=== PATIENT | female | born 1950 | race Caucasian/White ===

== ENCOUNTER → 2017-10-09 12:01 | Outpatient (CLI) | payer MEDICARE, OTHER, SELFPAY ==
--- NOTE | 2017-10-09 12:07 | HPBI_ITS ---
MAMMOGRAPHY - BILATERAL SCREENING REASON FOR EXAM: Female, 67 years old. Routine annual screening examination. PERTINENT HISTORY: Non-contributory. TECHNIQUE: Digital bilateral breast rodri (3D mammographic acquisition) in the CC and MLO projections. 2-D mediolateral oblique (MLO) and craniocaudad (CC) views of both breasts were obtained. CAD: Full Field Digital Mammography with Computer Added Detection was performed. COMPARISON: Comparison is made with prior study dated October 04, 2016 and June 25, 2015. FINDINGS: Breast Composition: The breasts are almost entirely fatty. There are no dominant masses or suspicious calcifications. Stable 7 mm well-defined nodular density in the upper outer aspect of the left breast suggestive of a small intramammary lymph node. No other significant abnormalities are identified. There has been no significant change since the prior study. HPBI/SCREENING MAMM (CAD), BILAT IMPRESSION: Stable bilateral screening mammogram. Yearly follow-up mammogram recommended. (A) ASSESSMENT CATEGORY: BIRADS Category 2: Benign. A letter regarding these results will be sent to the patient by the facility within 30 days. Approximately 10% of breast cancers are not detected by mammography. A normal mammogram should not delay biopsy of a clinically suspicious abnormality. [id number] Electronically Signed: Hoang Hill MD at 8:14 EDT Tel [phone], Service support ,
== END ==
PROVIDERS: Family Provider Family Medicine; PCP Family Medicine; Visit Provider Family Medicine
DX: Z12.31 Encounter for screening mammogram for malignant neoplasm of breast (principal)
CPT/HCPCS: 77063; 77067

== ENCOUNTER → 2017-12-17 08:14 | Outpatient (CLI) | payer MEDICARE, OTHER, SELFPAY ==
[2017-12-17 10:53] LABS: Vitamin D,25 Hydroxy 33.4 ng/mL (29.95-100.01)
[2017-12-17 11:00] LABS: ALB/GLOB Ratio 1.1 RATIO (0.9-2.4); AST(SGOT) 13 U/L (15-37); Alanine Aminotransfer ALT/SGPT 21 U/L (13-56); Albumin, Serum 3.5 g/dL (3.2-5.0); Alkaline Phosphatase 94 U/L (45-117); Anion Gap 8 (5-15); BUN 12 mg/dL (7-18); BUN/Creat Ratio 14.6 RATIO (10-20); Calcium,Total 8.7 mg/dL (8.5-10.1); Chloride 105 mmol/L (98-107); Cholesterol 201 mg/dL (200); Creatinine, Serum 0.82 mg/dL (0.55-1.02); EST Glomerular Filtration Rate 74 mL/min (>60); Est Glom Filt Rate - Afr Amer 89 mL/min (>60); Globulin 3.3 g/dL (2.2-4.2); Glucose 101 mg/dL (74-106); High Density Lipoprotein 50 mg/dL; Potassium 3.9 mmol/L (3.5-5.1); Protein, Total 6.8 g/dL (6.4-8.2); Sodium Level 140 mmol/L (136-145); Triglycerides 70 mg/dL; Very Low Density Lipoprotein 14 mg/dL (5-40)
== END ==
PROVIDERS: Family Provider Family Medicine; PCP Family Medicine; Visit Provider Family Medicine
DX: I10 Essential (primary) hypertension (principal); E55.9 Vitamin D deficiency, unspecified
CPT/HCPCS: 36415; 80053; 80061; 82306

== ENCOUNTER → 2018-04-16 09:33 | Outpatient (CLI) | payer MEDICARE, OTHER, SELFPAY ==
--- NOTE | 2018-04-16 09:36 | RAD_ITS ---
STUDY: X-RAY - PARANASAL SINUSES REASON FOR EXAM: Female, 67 years old. Sinusitis. TECHNIQUE: 3 view(s) of the paranasal sinuses were obtained. COMPARISON: None. FINDINGS: Opacification of the left maxillary sinus and left frontal sinus. Normal visualized facial bones. The soft tissue structures are unremarkable. RAD/Sinuses min 3 Views IMPRESSION: Opacification of the left frontal and left maxillary sinuses. Electronically Signed: Hoang Hill MD at 15:10 EDT Tel [phone], Service support ,
== END ==
PROVIDERS: Family Provider Family Medicine; PCP Family Medicine; Visit Provider Family Medicine
DX: J32.9 Chronic sinusitis, unspecified (principal)
CPT/HCPCS: 70220

== ENCOUNTER → 2018-05-17 10:01 | Outpatient (CLI) | payer MEDICARE, OTHER, SELFPAY ==
--- NOTE | 2018-05-17 10:06 | RAD_ITS ---
STUDY: X-RAY - PARANASAL SINUSES REASON FOR EXAM: Female, 67 years old. Sinusitis. TECHNIQUE: 3 view(s) of the paranasal sinuses were obtained. # of Images: 3 COMPARISON: None. FINDINGS: Normal visualized frontal, right maxillary, ethmoidal and sphenoid sinuses. There is mildly increased density in the left maxillary sinus. Normal visualized facial bones. The soft tissue structures are unremarkable. RAD/Sinuses min 3 Views IMPRESSION: Question left maxillary sinusitis. Electronically Signed: Cody Martinez DO at 20:06 EDT Tel [phone], Service support ,
== END ==
PROVIDERS: Family Provider Family Medicine; PCP Family Medicine; Referring Provider Family Medicine; Visit Provider Family Medicine
DX: J32.9 Chronic sinusitis, unspecified (principal)
CPT/HCPCS: 70220

== ENCOUNTER → 2018-09-26 07:49 | Outpatient (CLI) | payer MEDICARE, OTHER, SELFPAY ==
[2018-09-26 10:23] LABS: ALB/GLOB Ratio 1.1 RATIO (0.9-2.4); AST(SGOT) 10 U/L (15-37); Alanine Aminotransfer ALT/SGPT 17 U/L (13-56); Albumin, Serum 3.4 g/dL (3.2-5.0); Alkaline Phosphatase 95 U/L (45-117); Anion Gap 7 (5-15); BUN 10 mg/dL (7-18); BUN/Creat Ratio 11.7 RATIO (10-20); Calcium,Total 8.5 mg/dL (8.5-10.1); Chloride 106 mmol/L (98-107); Cholesterol 214 mg/dL (200); Creatinine, Serum 0.86 mg/dL (0.55-1.02); EST Glomerular Filtration Rate 70 mL/min (>60); Est Glom Filt Rate - Afr Amer 85 mL/min (>60); Globulin 3.2 g/dL (2.2-4.2); Glucose 100 mg/dL (74-106); High Density Lipoprotein 46 mg/dL; Potassium 3.6 mmol/L (3.5-5.1); Protein, Total 6.6 g/dL (6.4-8.2); Sodium Level 142 mmol/L (136-145); Triglycerides 85 mg/dL; Very Low Density Lipoprotein 17 mg/dL (5-40)
[2018-09-26 11:22] LABS: Vitamin D,25 Hydroxy 15.9 ng/mL (29.95-100.01)
== END ==
PROVIDERS: Family Provider Family Medicine; PCP Family Medicine; Referring Provider Family Medicine; Visit Provider Family Medicine
DX: E55.9 Vitamin D deficiency, unspecified (principal); I10 Essential (primary) hypertension
CPT/HCPCS: 36415; 80053; 80061; 82306

== ENCOUNTER 2018-10-15 12:30 | Outpatient (RCR) | payer MEDICARE, OTHER, SELFPAY ==
--- NOTE | 2018-09-02 12:30 | HP.PTEVAL_ITS ---
Patient's Visit Information DUSTIN CHANG is a 68 year old F referred to Physical Therapy by Jaciel Lowry MD with a diagnosis of RIGHT PIRIFORMIS SYNDROM AND HX OF LUMBAR DDD.. Date of Evaluation: 09/02/18 Physical Therapist: Maria Eugenia Zuñiga, PT, Cert MDT - Visit Plan Frequency: 2-3x /Week Duration: 4-6 Weeks Plan: AQUATIC THERAPY FOR PAIN RELEIF, POSTURE CORRECTION/STRENGTHENING, INSTRUCTION IN APPROPRIATE BODY MECHANICS AND ACTIVITY MODIFICATIONS. DLS STARTING WITH A NEUTRAL SPINE PROGRESSING ROM TOLERATED. KAJAL LE ROM, STRETCHING AND STRENGTHENING. HEP INSTRUCTION. ESPECIALLY MONITOR RIGHT KNEE PAIN, SWELLING, ROM AND STRENGTH. - Subjective Findings: Work/Leisure: RETIRED. Disability: YES - SINCE 2007 FOR LOW BACK. Present symptoms: RIGHT LOW BACK, RIGHT HIP, RIGHT THIGH AND RIGHT KNEE PAIN AND RIGHT LEG PAIIN. PATIENT DENIES RIGHT BUTTOCK PAIN. PATIENT DENIES FOOT SX'S. HAS NUMBNESS AND TINGLING IN RIGHT THIGH AND LEG TOO. Present since: JUL 30 2018. Pain Scale: WORSE 10/10, LEAST 2/10. Currently: 10/06. Commenced as a result of: NO APPARENT REASON. Symptoms at onset: RIGHT LOW BACK. Worse: WALKING, STANDING, TRUNING OVER IN BED, DRIVING, COOKING, DOING DISHES, CLEANI NG. Better: SITTING, LYIND DOWN IN RIGHT SDLY. Disturbed sleep: YES. Previous history/Previous treatment: LUMBAR FUSION - DR. MARIE 2006. NO RECENT MARY ELLEN'S, NO RECENT PT, NO CHIROPRACTOR. Coughing/sneezing/straining: NEGATIVE. Gait: PATIENT REPORTS HER RIGHT KNEE GOT REALLY WEAK AND GAVE OUT A FEW TIMES SO SHE HAD TO START USING HER WALKER AND CANE AGAIN SINCE JUL 30 2018. USE TO JUST HAVE TO USE CANE FOR LONG DISTANCES. Difficulty initiating urinatin: NO. Accidents: NO. Unexplained weight loss: NO. Imaging: NONE RECENT. PMH: HTN, ASTHMA, RIGHT TKR 2002. PLOF (Prior Level of Function): ABLE TO WALK WITHOUT AD MOST OF THE TIME. 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 SCIATICA PREVENTING HER FROM BEING ABLE TO DRIVE INITIALLY. - Objective Sitting/Standing Posture: POOR. RIGHT HIP SLIGHTLY HIGHER THAN LEFT. Lordosis: REDUCED. Lateral shift: NO. Relevant shift: N/A. Active Correction of posture: BETTER. BETTER WITH PASSIVE SUPPORT TOO. Other Observations: INDEP GAIT INTO PT WITH A STRAIGHT CANE, INCREASED TRUNK FLEX, LIMP ON RIGHT LE AND DECREASED CADANCE. Motor deficit: LLE 5/5 WITH MMT'ING EXCEPT HIP 4-/5. RIGHT LE: HIP 3+/5, KNEE EXT 4/5, KNEE FLEX 4-/5, ANKLE 5/5. Sensory deficit: KAJAL LE LIGHT TOUCH SENSATION APPEARS INTACT AND SYMMETRICAL. ROM deficit: TIGHT KAJAL HIP FLEXORS, KNEE FLEX AND GASTROC SOLEUS COMPLEX'S. RIGHT KNEE FLEX 116, LEFT 127. Reflexes: NT. Dural Signs: NEGATIVE KAJAL LE DURAL TESTS. Lumbar mvmt loss: flex - MIN - INCRASES TINGLING RIGHT LE. ext - LEON - FEELS SHYAM GOOD. R SG - LEON. L SG - MOD. Core strength: POOR. Palpation: TENDERNESS WITH PALPATION OF THE ENTIRE LUMBAR REGION INTO RIGHT HIP AND LATERAL THIGH AND RIGHT KNEE MEDIAL AND LATERALLY. THERE IS A VERY SMALL MEDIAL AREA OF SWELLING IN THE RIGHT KNEE. - Goals Goal 1:: DECREASE C/O LOW BACK AND RIGHT LE SX'S. Goal Time Frame: 4-6 Weeks Goal 2:: IMPROVE STANDING, WALKING, BENDING, LIFTING, ADL AND HOMEMAKING FUNCITON. Goal Time Frame: 4-6 Weeks Goal 3:: INSTRUCT IN PROPHYLAXIS Goal Time Frame: 4-6 Weeks - Rehabilitation Potential Rehabilitation Potential: Fair - Anticipated Interventions Patient/Client Instruction: Educate patient on: Condition, Plan of Care, Risk Factors, Benefits of Fitness Program For the Purpose of:: To improve self management Therapeutic Exercise to Include: Strength training, Body mechanics, Postural training, Gait and locomotor training, In an aquatic setting, Active ROM, Dynamic Lumbar Stabilization For the Purpose of:: To decrease pain, To increase ROM, To improve muscle performance and motor function, To increase tolerance to activity/condition/position, To improve ability of physical actions for home/community/work/leisure, To improve gait and locomotor functions Thank you for the opportunity to evaluate your patient. For Medicare and Medicare HMO plans, please review the plan of care and approve it. It will need to be FAXED BACK to us at [phone] for Medicare purposes. For Medicare only, by signing this I certify the plan of care. Please let me know if there are questions or concerns regarding this plan of care. Physician Signature: Date:
--- NOTE | 2018-09-27 11:29 | HP.PTREVAL_ITS ---
Jaciel Lowry MD, It has been my pleasure to treat DUSTIN CHANG over the last 8 visits for RIGHT PIRIFORMIS SYNDROM AND HX OF LUMBAR DDD.. Please see the progress note below for an update on the physical therapy plan of care! Subjective: PATIENT REPORTS HER RIGHT LEG IS NOT ACHING AND THROBBING ANYMORE. IT DOESN'T HAVE ANY SHOOTING PAINS AND IT DOESN'T FEEL WEAK. KNEE ISN'T GIVING OUT LIKE BEFORE. 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 SHE REPORTS THAT SOME DAYS THE WATER EX HELPS HER BACK TOO. SOME OF THE EX'S HAVE MADE HER BACK SORE THOUGH. SHE REPORTS FEELING CHALLENGED BY THE CURRENT INTENSITY EXCEPT THE LUNGES WERE TOO MUCH. Objective/Function: INDEP GAIT NOW WITHOUT AD OR GROSS DEVIATION NOTED EXCEPT DECREASED CADANCE AND MILD INCREASED TRUNK FLEXION. Motor deficit: LLE 5/5 WITH MMT'ING EXCEPT HIP 4/5. RIGHT LE: HIP 4-/5, KNEE EXT 5/5, KNEE FLEX 5/5, ANKLE 5/5. Sensory deficit: KAJAL LE LIGHT TOUCH SENSATION APPEARS INTACT AND SYMMETRICAL. ROM deficit: TIGHT KAJAL HIP FLEXORS, KNEE FLEX AND GASTROC SOLEUS COMPLEX'S. RIGHT KNEE FLEX 125, LEFT 127. Reflexes: NT. Dural Signs: NEGATIVE KAJAL LE DURAL TESTS. Lumbar mvmt loss: flex - NIL. ext - MOD. R SG - LEON. L SG - MOD. Core strength: POOR. Palpation: MILD TENDERNESS WITH PALPATION OF RIGHT LUMBAR REGION AND RIGHT LATERAL HIP REGION. NO KNEE EDEMA NOTED NOW. Plan Plan: CONTINUE AQUATIC THERAPY X 10 MORE VISITS DECREASING TO 2 TIMES A WEEK (WITH PATIENT STARTING ONE TIME A WEEK INDEP) FOR PAIN RELEIF, POSTURE CORRECTION/STRENGTHENING, INSTRUCTION IN APPROPRIATE BODY MECHANICS AND ACTIVITY MODIFICATIONS. DLS STARTING WITH A NEUTRAL SPINE PROGRESSING ROM TOLERATED. KAJAL LE ROM, STRETCHING AND STRENGTHENING. HEP INSTRUCTION. Goals Goal 1:: DECREASE C/O LOW BACK AND RIGHT LE SX'S. Goal Time Frame: 4-6 Weeks Goal Progress: Progressing Goal 2:: IMPROVE STANDING, WALKING, BENDING, LIFTING, ADL AND HOMEMAKING FUNCITON. Goal Time Frame: 4-6 Weeks Goal Progress: Progressing Goal 3:: INSTRUCT IN PROPHYLAXIS Goal Time Frame: 4-6 Weeks Goal Progress: Progressing Anticipated Interventions Patient/Client Instruction: Educate patient on: Condition, Plan of Care, Risk Factors, Benefits of Fitness Program For the Purpose of:: To improve self management Therapeutic Exercise to Include: Strength training, Body mechanics, Postural training, Gait and locomotor training, In an aquatic setting, Active ROM, Dynamic Lumbar Stabilization For the Purpose of:: To decrease pain, To increase ROM, To improve muscle performance and motor function, To increase tolerance to activity/condition/position, To improve ability of physical actions for home/c ommunity/work/leisure, To improve gait and locomotor functions Please do not hesitate to contact me at [phone] by phone or if you have questions or concerns regarding this new plan of care! Sincerely, Maria Eugenia Zuñiga, PT, Cert MDT
--- NOTE | 2018-10-15 12:51 | HP.PTDCSUM_ITS ---
HP - PT D/C Summary It has been my pleasure to treat DUSTIN CHANG under orders from Jaciel Lowry MD, for the diagnosis of RIGHT PIRIFORMIS SYNDROM AND HX OF LUMBAR DDD. for a total of 11 visit(s). Discharge Date: 10/15/18 Please see the following information for a summary of their discharge status. - Subjective Subjective: PATIENT REPORTS HER LEG IS ALL BETTER AND THAT IS WHY SHE CAME HERE. STATES SHE HAS MORE MOLLY'TS SCHEDULED BUT WANTS TO TALK WITH ME ABOUT CANCELLING THEM. PATIENT REPORTS SHE STILL HAS BACK PAIN AND LIMITATIONS BUT THAT IS NOT WHY SHE IS HERE - I HAVE HAD BACK PAIN FOR A LONG TIME. STATES SHE HAS A HOME EX PROGRAM BUT SHE DOESN'T DO THEM MUCH SHE SHOULD. PLANS TO DO THEM MORE AT HOME WHEN SHE STOPS PT. STATES SHE LOVES THE WATER AND IS GOING TO START BACK INDEP'LY IN THE POOL 2 DAYS A WEEK NEXT WEEK. STATES SHE HASN'T HAD ANY LEG PAIN FOR A WHILE NOW AND THERAPY MIGHT HAVE EVEN HELPED HER BACK A LITTLE. - Pain RIGHT LEG/KNEE Pain Intensity (Out of 10): 0 LOWER BACK Pain Intensity (Out of 10): 2 - Overall Improvement % Improvement: 100 - Objective Objective/Function: ALL GOALS MET AND PATIENT IS INDEP WITH A POOL PROGRAM SHE PLANS TO CONTINUE HERE AT [facility]. INDEP GAIT WITHOUT AD OR GROSS DEVIATION NOTED EXCEPT DECREASED CADANCE AND MILD INCREASED TRUNK FLEXION. Motor deficit: LLE 5/5 WITH MMT'ING EXCEPT HIP 4/5. RIGHT LE: HIP 4-/5, KNEE EXT 5/5, KNEE FLEX 5/5, ANKLE 5/5. Sensory deficit: KAJAL LE LIGHT TOUCH SENSATION APPEARS INTACT AND SYMMETRICAL. ROM deficit: TIGHT KAJAL HIP FLEXORS, KNEE FLEX AND GASTROC SOLEUS COMPLEX'S. RIGHT KNEE FLEX 128, LEFT 134. Dural Signs: NEGATIVE KAJAL LE DURAL TESTS. Lumbar mvmt loss: flex - NIL. ext - MOD. R SG - LEON. L SG - MOD. Core strength: POOR - Goals Goal 1:: DECREASE C/O LOW BACK AND RIGHT LE SX'S. Goal Progress: Goal Met Goal 2:: IMPROVE STANDING, WALKING, BENDING, LIFTING, ADL AND HOMEMAKING FUNCITON. Goal Progress: Goal Met Goal 3:: INSTRUCT IN PROPHYLAXIS Goal Progress: Goal Met - Plan Plan: D/C. PATIENT AGREEABLE. - D/C Information If there are questions or concerns regarding this patient's physical therapy, please feel free to call me at [phone]. Thank you for the referral of this patient. Sincerely, Maria Eugenia Zuñiga PT, Cert MDT
== END 2018-10-15 19:00 | disposition home or self-care (01) ==
LOC: PT 12:30
PROVIDERS: Family Provider Family Medicine; PCP Family Medicine; Referring Provider Family Medicine; Visit Provider Family Medicine
DX: G57.01 Lesion of sciatic nerve, right lower limb (principal); Z87.39 Personal history of other diseases of the musculoskeletal system and connective tissue
CPT/HCPCS: 97113; 97162; 97530

== ENCOUNTER → 2018-12-24 11:52 | Outpatient (CLI) | payer MEDICARE, OTHER, SELFPAY ==
--- NOTE | 2018-12-24 11:55 | BI_ITS ---
MAMMOGRAPHY - BILATERAL SCREENING REASON FOR EXAM: Female, 68 years old. Routine annual screening examination. PERTINENT HISTORY: Non-contributory. TECHNIQUE: Digital bilateral breast rodri (3D mammographic acquisition) in the CC and MLO projections. 2-D mediolateral oblique (MLO) and craniocaudad (CC) views of both breasts were obtained. CAD: Full Field Digital Mammography with Computer Added Detection was performed. COMPARISON: Comparison is made with prior examination dated October 09, 2017 and October 04, 2016. FINDINGS: Breast Composition: The breasts are almost entirely fatty. There are no dominant masses or suspicious calcifications. Stable 7 mm well-defined nodular density in the upper outer aspect of the left breast. This has the appearance of a small intramammary lymph node. No other significant abnormalities are identified. There has been no significant change since the prior study. BI/SCREENING MAMM (CAD), BILAT IMPRESSION: Stable bilateral screening mammogram. Yearly follow-up mammogram recommended. (A) ASSESSMENT CATEGORY: BIRADS Category 2: Benign. A letter regarding these results will be sent to the patient by the facility within 30 days. Approximately 10% of breast cancers are not detected by mammography. A normal mammogram should not delay biopsy of a clinically suspicious abnormality. [id number] Electronically Signed: Hoang Hill, at 8:15 EDT , Service support ,
--- NOTE | 2018-12-24 12:10 | BD_ITS ---
STUDY: DUAL ENERGY X-RAY ABSORPTIOMETRY / DXA REASON FOR EXAM: Female, 68 years old. The patient is postmenopausal. Loss of height. TECHNIQUE: Bone Mineral Density (BMD) measurements of lumbar spine and bilateral hips were obtained. COMPARISON: Comparison is made with prior examination of October 04, 2016. FINDINGS: Lumbar Spine (L1-L4): g/cm2 (1.096) / T-score (-0.6) / Z-score (1.0) Findings are suggestive of normal bone density with a low fracture risk. Left Femur Total: g/cm2 (0.976) / T-score (-0.3) / Z-score (1.1) Left Femoral Neck: g/cm2 (0.907) / T-score (-0.9) / Z-score (0.6) Right Femur Total: g/cm2 (1.000) / T-score (-0.1) / Z-score (1.3) Right Femoral Neck: g/cm2 (0.892) / T-score (-1.1) / Z-score (0.5) The T-Scores on the most recent prior examination were: Lumbar Spine (L1-L4): There has been improvement of bone density since the previous examination. Left Femur Total: which represents a worsening of 6.8%. Right Femur Total: which represents a worsening of 2.2%. BD/Dexa Bone Density Study IMPRESSION: The patient is considered osteopenic as outlined below according to World Abad Organization (WHO) criteria with a low fracture risk. There has been worsening of bone density since the previous examination. Reference Information: The T-score is the number of standard deviations above or below the standard which is normal for young adults at their peak bone mineral density. The World Health Organization (WHO) interprets the T-scores as follows: Above -1 Normal bone density Between -1 and -2.5 Osteopenia Equal to / or below -2.5 Osteoporosis As a practical clinical guideline, osteopenia may be graded as follows: Mild -1 through -1.5 Moderate -1.6 through -2.0 Severe -2.1 through -2.4 The Z-score is the number of standard deviations above or below age-matched controls. A Z-score of less than -1.5 would be considered abnormal. References: 1. NIH Osteoporosis and Related Bone Diseases http://www.osteo.org 2. International Society for Clinical Densitometry http://www.iscd.org 3. National Osteoporosis Foundation http://www.nof.org Electronically Signed: Hoang Hill, at 12:39 EDT , Service support ,
== END ==
PROVIDERS: Family Provider Family Medicine; PCP Family Medicine; Referring Provider Family Medicine; Visit Provider Family Medicine
DX: Z12.31 Encounter for screening mammogram for malignant neoplasm of breast (principal); Z78.0 Asymptomatic menopausal state
CPT/HCPCS: 77063; 77067; 77080

== ENCOUNTER → 2019-01-29 09:00 | Outpatient (CLI) | payer MEDICARE, OTHER, SELFPAY | PROVIDERS: Family Provider Family Medicine; PCP Family Medicine; Referring Provider Family Medicine; Visit Provider Family Medicine | DX: E55.9 Vitamin D deficiency, unspecified (principal) | CPT/HCPCS: 36415; 82306 ==

== ENCOUNTER → 2019-12-05 10:30 | Outpatient (CLI) | payer MEDICARE, OTHER, SELFPAY | PROVIDERS: PCP Family Medicine; Referring Provider Otolaryngology; Visit Provider Otolaryngology | DX: J32.9 Chronic sinusitis, unspecified (principal) | CPT/HCPCS: 87070; 87205 ==

== ENCOUNTER → 2019-12-26 11:41 | Outpatient (CLI) | payer MEDICARE, OTHER, SELFPAY ==
--- NOTE | 2019-12-26 11:58 | EKG12_ITS ---
Test Reason : PREOP Blood Pressure : / mmHG Vent. Rate : 073 BPM Atrial Rate : 073 BPM P-R Int : 130 ms QRS Dur : 082 ms QT Int : 396 ms P-R-T Axes : 052 041 046 degrees QTc Int : 436 ms Normal sinus rhythm Normal ECG Confirmed by DANDY RODRIGUEZ ([id number]), mapping editor KAREN SMALLWOOD ([id number]) on 12/29/2019 11:12:39 AM Referred By: RENETTA Confirmed By:DANDY RODRIGUEZ
[2019-12-26 12:28] LABS: Hematocrit 38.5 % (37-47); Hemoglobin 12.1 g/dL (12.0-15.0); Mean Corp Hgb Conc 31.4 g/dL (32-36); Mean Corpuscular Volume 95.3 fL (81-99); Mean Platelet Vol. 12.1 fl (6.2-12.0); Platelet Count 188 K/mm3 (150-450); RBC Distribution Width CV 13.2 % (11.6-14.6); RBC Distribution Width SD 46.2 fl (35.1-43.9); Red Blood Count 4.04 M/mm3 (4.2-5.4); White Blood Count 5.6 K/mm3 (4.4-11.0)
[2019-12-26 13:05] LABS: Anion Gap 6 (5-15); BUN 14 mg/dL (7-18); Calcium,Total 9.3 mg/dL (8.5-10.1); Chloride 103 mmol/L (98-107); Creatinine, Serum 0.93 mg/dL (0.55-1.02); EST Glomerular Filtration Rate 64 mL/min (>60); Est Glom Filt Rate - Afr Amer 77 mL/min (>60); Glucose 100 mg/dL (74-106); Potassium 3.7 mmol/L (3.5-5.1); Sodium Level 139 mmol/L (136-145)
== END ==
PROVIDERS: PCP Family Medicine; Visit Provider Otolaryngology
DX: Z01.810 Encounter for preprocedural cardiovascular examination (principal); Z01.812 Encounter for preprocedural laboratory examination
CPT/HCPCS: 36415; 80048; 85027; 93005

== ENCOUNTER → 2019-12-26 13:57 | Outpatient (CLI) | payer MEDICARE, OTHER, SELFPAY | PROVIDERS: PCP Family Medicine; Visit Provider Otolaryngology | DX: Z11.59 Encounter for screening for other viral diseases (principal); Z01.810 Encounter for preprocedural cardiovascular examination; Z01.818 Encounter for other preprocedural examination | CPT/HCPCS: 36415; 80048; 85027; 87635; 93005; G2023; U0003 ==

== ENCOUNTER → 2020-04-01 10:01 | Outpatient (CLI) | payer MEDICARE, OTHER, SELFPAY ==
[2020-04-01 12:42] LABS: Vitamin D,25 Hydroxy 45.1 ng/mL
[2020-04-01 12:48] LABS: ALB/GLOB Ratio 1.2 RATIO (0.9-2.4); AST(SGOT) 20 U/L (15-37); Alanine Aminotransfer ALT/SGPT 24 U/L (13-56); Albumin, Serum 3.7 g/dL (3.2-5.0); Alkaline Phosphatase 79 U/L (45-117); Anion Gap 5 (5-15); BUN 16 mg/dL (7-18); BUN/Creat Ratio 19.6 RATIO (10-20); Calcium,Total 8.8 mg/dL (8.5-10.1); Chloride 107 mmol/L (98-107); Cholesterol 214 mg/dL (200); Creatinine, Serum 0.82 mg/dL (0.55-1.02); EST Glomerular Filtration Rate 74 mL/min (>60); Est Glom Filt Rate - Afr Amer 89 mL/min (>60); Globulin 3.2 g/dL (2.2-4.2); Glucose 92 mg/dL (74-106); High Density Lipoprotein 58 mg/dL; Potassium 3.6 mmol/L (3.5-5.1); Protein, Total 6.9 g/dL (6.4-8.2); Sodium Level 141 mmol/L (136-145); Triglycerides 87 mg/dL; Very Low Density Lipoprotein 17 mg/dL (5-40)
== END ==
PROVIDERS: PCP Family Medicine; Referring Provider Family Medicine; Visit Provider Family Medicine
DX: E55.9 Vitamin D deficiency, unspecified (principal); E66.9 Obesity, unspecified; E78.5 Hyperlipidemia, unspecified
CPT/HCPCS: 36415; 80053; 80061; 82306; 84443

== ENCOUNTER → 2020-04-21 09:40 | Outpatient (CLI) | payer MEDICARE, OTHER, SELFPAY | PROVIDERS: PCP Family Medicine; Referring Provider Otolaryngology; Visit Provider Otolaryngology | DX: Z11.59 Encounter for screening for other viral diseases (principal) | CPT/HCPCS: 87635; C9803; U0003 ==

== ENCOUNTER → 2020-04-27 15:23 | Outpatient (CLI) | payer MEDICARE, OTHER, SELFPAY ==
--- NOTE | 2020-04-27 08:40 | ETH_PTH ---
PATIENT: DUSTIN CHANG LOC: [facility] U#:[id number] AGE/SX: 74/F ROOM: RE04/27/[address]: Dr. Romero Almendarez MD : 1950 BED: DIS: SPEC #: [id number] RECD: 04/27/20 15:01 STATUS: SHAHZAD FERNANDO #: [id number] RICKI: 04/27/20 08:[address]: Romero Almendarez DEPT: SURGICAL PATHOLOGY RECD BY: Frederic Pool ENTERED: 04/28/20 07:22 SP TYPE: ETH TISS OTHR DR: Dr. Romero Lowry MD [facility] Tissues: A - Ethmoid sinus, NOS B - Ethmoid sinus, NOS Procedures: Decalcification bone/plaque Surgery Specimen Level III HEADER OPERATION: Functional endoscopic sinus surgery PRE-OP DIAGNOSIS: Chronic sinusitis, polyp of nasal cavity TISSUE SUBMITTED: A - Right sinus contents, B - Left sinus contents MICROSCOPIC DIAGNOSIS A. Right sinus contents, curettings: Consistent with chronic sinusitis. Fragments of unremarkable bone. B. Left sinus contents, curettings: Consistent with chronic sinusitis. Fragments of unremarkable bone. AM:estefani 05/03/20 MICROSCOPIC DESCRIPTION Slides are reviewed. GROSS DESCRIPTION A - Received in fixative is one container labeled with the patient's name and designated right sinus contents. The specimen consists of multiple irregular fragments of gritty pink-lemon tissue that in aggregate measure 2 x 1 x 0.2 cm. The specimen is totally submitted in one cassette after decalcification. B - Received in fixative is one container labeled with the patient's name and designated left sinus contents. The specimen consists of multiple irregular fragments of gritty light lemon soft tissue that in aggregate measure 5 x 3 x 0.2 cm. The specimen is totally submitted in one cassette after decalcification. / AM:estefani 04/28/20 TC:3 CPT: 82198 x2, 31887 x2
== END ==
PROVIDERS: PCP Family Medicine; Referring Provider Otolaryngology; Visit Provider Otolaryngology
DX: J32.9 Chronic sinusitis, unspecified (principal); J33.0 Polyp of nasal cavity
CPT/HCPCS: 88304; 88305; 88311

== ENCOUNTER → 2021-03-16 08:09 | Outpatient (CLI) | payer MEDICARE, OTHER, SELFPAY ==
--- NOTE | 2021-03-16 08:12 | US_ITS ---
STUDY: SUPERFICIAL ULTRASOUND - RIGHT ANKLE. REASON FOR EXAM: Female, 70 years old. RIGHT ANKLE MASS- h/o prior ganglion cyst removal TECHNIQUE: A superficial ultrasound was performed with real-time and static germain-scale imaging. COMPARISON: None. FINDINGS: The palpable abnormality corresponds to a 1.1 cm x 1.1 cm x 0.6 cm heterogeneous soft tissue density along the inner aspect of the lateral malleolus. A complex ganglion cyst should be ruled out. US/Ext Non Vasc Limited/Soft Tiss IMPRESSION: The palpable amount to correspond to 1.1 cm x 1.1 cm x 0.6 cm heterogeneous soft tissue density. This may represent a complex ganglion cyst. Electronically Signed: Hoang Hill MD at 14:59 EDT , Service support ,
== END ==
PROVIDERS: PCP Family Medicine; Referring Provider Nurse Practitioner Family; Visit Provider Nurse Practitioner Family
DX: M67.40 Ganglion, unspecified site (principal)
CPT/HCPCS: 76882

== ENCOUNTER → 2021-04-14 09:02 | Outpatient (CLI) | payer MEDICARE, OTHER, SELFPAY ==
[2021-04-14 12:58] LABS: Vitamin D,25 Hydroxy 61.3 ng/mL
[2021-04-14 13:00] LABS: AST(SGOT) 15 U/L (15-37); Alanine Aminotransfer ALT/SGPT 29 U/L (13-56); Albumin, Serum 3.5 g/dL (3.2-5.0); Alkaline Phosphatase 65 U/L (45-117); Anion Gap 6 (5-15); BUN 14 mg/dL (7-18); Calcium,Total 9.1 mg/dL (8.5-10.1); Chloride 101 mmol/L (98-107); Cholesterol 188 mg/dL (200); Creatinine, Serum 0.78 mg/dL (0.55-1.02); EST Glomerular Filtration Rate 78 mL/min (>60); Est Glom Filt Rate - Afr Amer 95 mL/min (>60); Free T3 3.1 pg/mL (2.18-3.98); Globulin 3.5 g/dL (2.2-4.2); Glucose 99 mg/dL (74-106); High Density Lipoprotein 52 mg/dL; Potassium 3.1 mmol/L (3.5-5.1); Sodium Level 138 mmol/L (136-145); T4 Free Direct 0.86 ng/dL (0.76-1.46); Thyroid Stim Hormone (TSH) 1.86 uIU/mL (0.358-3.74); Triglycerides 167 mg/dL; Very Low Density Lipoprotein 33 mg/dL (5-40)
[2021-04-19 08:09] LABS: Epinephrine, Pl <15 pg/mL (0-62); Norepinephrine, Pl 484 pg/mL (0-874)
[2021-04-19 14:05] LABS: Dopamine, Pl <30 pg/mL (0-48)
== END ==
PROVIDERS: PCP Family Medicine; Referring Provider Internal Medicine Endocrinology, Diabetes & Metabolism; Visit Provider Internal Medicine Endocrinology, Diabetes & Metabolism
DX: E78.5 Hyperlipidemia, unspecified (principal); R23.2 Flushing; E55.9 Vitamin D deficiency, unspecified
CPT/HCPCS: 36415; 80053; 80061; 82306; 82384; 84439; 84443; 84481

== ENCOUNTER → 2021-05-25 07:53 | Outpatient (CLI) | payer MEDICARE, OTHER, SELFPAY ==
--- NOTE | 2021-05-25 07:56 | CT_ITS ---
STUDY: LOW DOSE CT LUNG CANCER SCREENING REASON FOR EXAM: Female, 70 years old. SMOKING HISTORY RADIATION DOSAGE (If Supplied By Facility): CTDIvol = ( 4.02 ) mGy, DLP = ( 134.91 ) mGycm TECHNIQUE: No contrast was administered. Low dose technique was utilized (average mAS-38 and kVp 120). 1.25 mm axial source images with a slice interval of 1.25-mm were reconstructed in lung windows. 2.5 mm axial source images with a slice interval of 2.5-mm were reconstructed in lung windows. 5.0 mm axial source images with a slice interval of 5.0-mm were reconstructed in soft tissue windows. Nodule measured using lung windows on PACS and/or independent workstation with automated measurement of minimum and maximum diameter. Nodule measurement reported as average diameter rounded to the nearest whole number. Growth is defined as an increase ins size of greater than 1.5 mm. COMPARISON: None. NODULES: Nodule #: 1 Density: Solid Lung location: Right lower lobe lobe: Abuts pleura Location in series: Series Number: 2 Image: 148 Size - D1 x D2 mm: 4.3 x 5.8 mm Margin: Smooth Shape: Round Calcification: None Fat: Not present Temporal comparison: N/A Total lung nodules (excluding granulomas): 1 Emphysema: Not present Endobronchial lesion: None Aorta: Minor atherosclerosis Coronary arteries: Moderate calcific atherosclerosis Heart: Normal size Pulmonary artery: Unremarkable for unopacified technique Mediastinal nodes: Calcified lymph nodes. No soft tissue adenopathy. Other chest and abdominal findings: Granuloma in the right middle lobe. Mild scarring of the lingula and right middle lobe. CT/Low Dose CT Lung Screening IMPRESSION: 1. Lung-RADS category 3 - Continue screening with LDCT in 6 months. 2. 4.3 x 5.8 mm right lower lobe nodule. IMPORTANT NOTES FOR USE: ACR Lung-RADS Version 1.1 Assessment Categories Release Date: 2018 Category: Coded 0-4 bases on nodule(s) with highest degree of suspicion. Negative screen is defined as categories 1 and 2; a positive screen is defined as categories 3 and 4. Category 3 and 4A nodules that are unchanged on interval CT should be coded as category 2, and individuals returned to screening in 12 months. Category 4X: Category 3 or 4 nodules with additional imaging findings that increase the suspicion of lung cancer, such as spiculation, GGN that doubles in size in 1 year, enlarged lymph notes, etc. Category Modifiers: S (significant finding unrelated to lung cancer) Electronically Signed: Nghia Zhang MD ([place]) at 9:04 EDT , Service support ,
== END ==
PROVIDERS: PCP Family Medicine; Referring Provider Family Medicine; Visit Provider Family Medicine
DX: Z12.2 Encounter for screening for malignant neoplasm of respiratory organs (principal); Z87.891 Personal history of nicotine dependence
CPT/HCPCS: 71271

== ENCOUNTER → 2021-06-22 09:55 | Outpatient (CLI) | payer MEDICARE, OTHER, SELFPAY ==
--- NOTE | 2021-06-22 09:58 | BI_ITS ---
MAMMOGRAPHY - BILATERAL SCREENING 3-D TOMOSYNTHESIS REASON FOR EXAM: Female, 70 years old. Routine screening PERTINENT HISTORY: No significant family history. TECHNIQUE: 2-D mammograms and 3-D Tomosynthesis of the breast (s) were performed. CAD was performed. COMPARISON: 12/24/2018 FINDINGS: The breast composition is almost entirely fat. Scattered benign calcifications are seen. No dense spiculated masses or suspicious microcalcifications are identified. No architectural distortion is identified. There is no skin thickening or retraction. Stable noncalcified subcentimeter nodule in the upper outer quadrant of the left breast. There has been no significant change since the prior study. BI/SCRN MAMM (CAD)W/NAS BILAT IMPRESSION: No mammographic signs of malignancy. Routine yearly mammograms recommended. ASSESSMENT CATEGORY: BIRADS Category 1: Negative. A letter regarding these results will be sent to the patient by the facility within 30 days. FOLLOW UP RECOMMENDATION: Yearly follow up mammogram recommended. (A) Approximately 10% of breast cancers are not detected by mammography. A normal mammogram should not delay biopsy of a clinically suspicious abnormality. Electronically Signed: Walter Preston MD at 13:08 EST , Service support ,
--- NOTE | 2021-06-22 10:01 | BD_ITS ---
STUDY: DUAL ENERGY X-RAY ABSORPTIOMETRY / DXA REASON FOR EXAM: Female, 70 years old. Z780. The patient is postmenopausal. TECHNIQUE: Bone Mineral Density (BMD) measurements of lumbar spine and bilateral hips were obtained. COMPARISON: Comparison is made with prior study dated 12/24/2018. FINDINGS: Lumbar Spine (L1-L4): g/cm2 (0.944) / T-score (-0.7) / Z-score (1.4) Findings are suggestive of normal bone density with a low fracture risk. Left Femur Total: g/cm2 (0.993) / T-score (0.4) / Z-score (1.9) Left Femoral Neck: g/cm2 (0.746) / T-score (-0.9) / Z-score (0.9) Right Femur Total: g/cm2 (1.010) / T-score (0.6) / Z-score (2.1) Right Femoral Neck: g/cm2 (0.847) / T-score (0.0) / Z-score (1.8) The T-Scores on the most recent prior examination were: Lumbar Spine (L1-L4): There has been worsening of bone density since the previous examination. Left Femur Total: which represents an improvement of 9%. Right Femur Total: which represents an improvement of 8.2%. BD/Dexa Bone Density Study IMPRESSION: The patient is considered normal as outlined below according to World Abad Organization (WHO) criteria with a low fracture risk. There has been improvement of bone density since the previous examination. Reference Information: The T-score is the number of standard deviations above or below the standard which is normal for young adults at their peak bone mineral density. The World Health Organization (WHO) interprets the T-scores as follows: Above -1 Normal bone density Between -1 and -2.5 Osteopenia Equal to / or below -2.5 Osteoporosis As a practical clinical guideline, osteopenia may be graded as follows: Mild -1 through -1.5 Moderate -1.6 through -2.0 Severe -2.1 through -2.4 The Z-score is the number of standard deviations above or below age-matched controls. A Z-score of less than -1.5 would be considered abnormal. References: 1. NIH Osteoporosis and Related Bone Diseases www osteo.org 2. International Society for Clinical Densitometry www iscd.org 3. National Osteoporosis Foundation www nof.org Electronically Signed: Hoang Hill MD at 13:07 EST , Service support ,
== END ==
PROVIDERS: PCP Family Medicine; Visit Provider Family Medicine
DX: Z12.31 Encounter for screening mammogram for malignant neoplasm of breast (principal); Z78.0 Asymptomatic menopausal state
CPT/HCPCS: 77063; 77067; 77080

== ENCOUNTER 2021-10-06 11:09 | Outpatient (CLI) | payer MEDICARE, OTHER, SELFPAY ==
[2021-10-06 15:30] LABS: Anion Gap 6 (5-15); BUN 17 mg/dL (7-18); BUN/Creat Ratio 20.4 RATIO (10-20); Calcium,Total 9.6 mg/dL (8.5-10.1); Chloride 102 mmol/L (98-107); Creatinine, Serum 0.83 mg/dL (0.55-1.02); EST Glomerular Filtration Rate 72 mL/min (>60); Est Glom Filt Rate - Afr Amer 87 mL/min (>60); Glucose 92 mg/dL (74-106); Potassium 3.2 mmol/L (3.5-5.1); Sodium Level 139 mmol/L (136-145)
[2021-10-06 15:39] LABS: Vitamin D,25 Hydroxy 56.4 ng/mL
== END 2021-10-06 23:59 | disposition home or self-care (01) ==
LOC: MTLAB 11:11
PROVIDERS: PCP Family Medicine; Referring Provider Family Medicine; Visit Provider Family Medicine
DX: M67.40 Ganglion, unspecified site (principal); I10 Essential (primary) hypertension; R23.2 Flushing; E78.5 Hyperlipidemia, unspecified; E55.9 Vitamin D deficiency, unspecified
CPT/HCPCS: 36415; 80048; 82306

== ENCOUNTER 2021-11-14 08:50 | Outpatient (CLI) | payer MEDICARE, OTHER, SELFPAY ==
[2021-11-14 10:17] LABS: Anion Gap 4 (5-15); BUN 14 mg/dL (7-18); BUN/Creat Ratio 14.9 RATIO (10-20); Calcium,Total 9.1 mg/dL (8.5-10.1); Chloride 106 mmol/L (98-107); Creatinine, Serum 0.94 mg/dL (0.55-1.02); EST Glomerular Filtration Rate 63 mL/min (>60); Est Glom Filt Rate - Afr Amer 76 mL/min (>60); Glucose 79 mg/dL (74-106); Potassium 3.5 mmol/L (3.5-5.1); Sodium Level 140 mmol/L (136-145)
== END 2021-11-14 23:59 | disposition home or self-care (01) ==
PROVIDERS: PCP Family Medicine; Referring Provider Family Medicine; Visit Provider Family Medicine
DX: I10 Essential (primary) hypertension (principal)
CPT/HCPCS: 36415; 80048

== ENCOUNTER 2022-05-15 14:01 | Emergency (ER) | payer MEDICARE, OTHER, SELFPAY ==
[2022-05-15 14:01] VITALS: BP 137/126; PULSE 91; RESP 16; TEMP 36.2; O2SAT 98; BMI 47.9
--- NOTE | 2022-05-15 14:04 | RAD_ITS ---
STUDY: X-RAY - LEFT HAND REASON FOR EXAM: Female, 71 years old. Injury to the third and fourth digits following a fall. TECHNIQUE: 3 view(s) of the hand. COMPARISON: None. FINDINGS: Normal radiocarpal articulation. Normal distal radioulnar joint. Normal visualized carpal bones. Normal carpal articulations There is degenerative arthrosis of the carpometacarpal articulation of the thumb with lateral subluxation of the first metacarpus. Normal second through fifth carpometacarpal joints. Normal metacarpi. Normal metacarpophalangeal joint of the thumb. Normal interphalangeal joint of the thumb. Normal proximal and distal phalanges of the thumb. Normal metacarpophalangeal joints of the second through fifth fingers. There is diffuse articular joint space narrowing of the proximal and distal interphalangeal joints of the second through fifth fingers, but without erosive changes or periarticular soft tissue swelling. Normal phalanges of the second through fifth fingers. Soft tissue swelling. RAD/Hand Min 3 Views IMPRESSION: Degenerative changes. No evidence of fracture or dislocation. Soft tissue swelling. Electronically Signed: Hoang Hill MD at 14:57 EDT ,
--- NOTE | 2022-05-15 15:20 | EDS_ITS ---
HPI HPI - Fall History of Present Illness Chief Complaint: Fall Informant: patient Narrative Narrative: Patient had a mechanical trip and fall earlier. She landed on outstretched hand. She has some soreness in her left hand. Most of it is in the left ring finger proximal interphalangeal joint. She is right-hand dominant. She also had the ring on that area and it has now been removed. No other injury. Squeezing it or moving the hand makes it a little bit worse ice makes it better. She is not on any significant anticoagulation. [facility] Medical History Arthritis Asthma Back problem Flushing High blood pressure High cholesterol Osteoarthritis Seasonal allergies Home Medications HEALTHY BRAIN AND FOCUS PO 04/14/21 [History Last Taken Unknown] albuterol sulfate 90 mcg/actuation aerosol inhaler gm inhalation 04/14/21 [History Last Taken Unknown] calcium citrate 200 mg (950 mg) tablet 200 mg PO BID 04/14/21 [History Last Taken Unknown] cholecalciferol (vitamin D3) 25 mcg (1,000 unit) capsule 25 mcg PO DAILY 04/14/21 [History Last Taken Unknown] fluticasone furoate 200 mcg-vilanterol 25 mcg/dose inhalation powder ea inhalation 04/14/21 [History Last Taken Unknown] fluticasone propionate 250 mcg/actuation blister powder for inhalation 1 inh inhalation QHS 04/14/21 [History Last Taken Unknown] hydrochlorothiazide 25 mg tablet ea PO 04/14/21 [History Last Taken Unknown] losartan 50 mg tablet tablet PO 04/14/21 [History Last Taken Unknown] meloxicam 15 mg tablet ea PO 04/14/21 [History Last Taken Unknown] multivitamin (Daily Multi-Vitamin tablet) 1 tab PO DAILY 04/14/21 [History Last Taken Unknown] prednisone 5 mg tablet ea PO 04/14/21 [History Last Taken Unknown] sertraline 50 mg tablet tablet PO 04/14/21 [History Last Taken Unknown] simvastatin 10 mg tablet tablet PO 04/14/21 [History Last Taken Unknown] Allergy/AdvReac Type Severity Reaction Status Date / Time No Known Allergies Allergy Verified 05/15/22 15:22 Family History Other CVA (cerebral vascular accident) Cancer Myocardial infarction Surgical History H/O total hysterectomy Previous back surgery Total knee replacement status Social History Smoking Status: Former smoker alcohol intake: current alcohol intake frequency: 0-2 drinks per day substance use type: does not use what type of physical activity do you participate in: none ROS ROS ED Cardiovascular Cardiovascular: Denies chest pain, palpitations or racing heartbeat Gastrointestinal Gastrointestinal: Denies nausea or vomiting Musculoskeletal Musculoskeletal: Reports arthralgias; Denies back pain or neck pain Integumentary Denies Abrasions or rash Hematologic/Lymphatic Hematologic/Lymphatic: Denies easy bleeding or easy bruising EXAM Physical Exam Const Vital Signs: 05/15/22 14:01 05/15/22 15:19 Temperature 97.1 F L Temperature Source Temporal Pulse Rate 91 Respiratory Rate 16 Respiratory Effort Normal Non-Labored Respiratory Depth Normal Respiratory Pattern Normal Blood Pressure 137/126 H Blood Pressure Mean 129 Pulse Ox 98 Oxygen Delivery Method Room Air Room Air Positive well nourished and well developed General Appearance ED: well developed and NAD HEENT Reports normocephalic atraumatic Resp normal respiratory effort Back/Spine Back/Spine Narrative: Normal gait and balance Extremity Extremity Narrative: She does have some ecchymosis and a little swelling around that left ring finger proximally. Some of this is left over from the ring that was just removed. Some is contusions from the injury. But there is no deformity. There is no laxity of the joint when stressed. Both profundus and superficialis flexor tendons as well as extensors intact. Capillary refill is intact. Neuro moves all extremities, no focal motor deficits and no sensory deficits noted Sensorium / Orientation: alert Skin Skin Narrative: Contusions but no break in the skin MDM MDM MDM Narrative Medical decision making narrative: X-ray showed no acute process. We discussed options of splint or no splint. She is right-hand dominant. She would prefer not to put a splint on that finger. I think this may be better long-term topical avoid stiffness. She will use ice and [id number] medication. We discussed reasons to follow-up. If it is still hurting in a week or so it may need a repeat x-ray. Radiography Diagnostic Testing: Clinical Impression(s) from Imaging Studies Hand X-Ray 05/15/22 14:04 IMPRESSION: Degenerative changes. No evidence of fracture or dislocation. Soft tissue swelling. Electronically Signed: Hoang Hill MD at 14:57 EDT , Three-view x-ray of the hand looked at by me and radiology shows no sign of acute fracture. There is soft tissue swelling. Discharge Plan Triage Chief Complaint: Fall ED Provider: Juan Antonio Montero Dx/Rx/DC Orders Clinical Impression: Fall from slip, trip, or stumble, Contusion of left ring finger Instructions: ED Finger Contusion Prescriptions: No Action sertraline 50 mg tablet PO prednisone 5 mg tablet PO Label Comments: TAKE 1 TABLET EVERY OTHER DAY with or after a meal meloxicam 15 mg tablet PO Label Comments: TAKE 1 TABLET BY MOUTH DAILY simvastatin 10 mg tablet PO losartan 50 mg tablet PO hydrochlorothiazide 25 mg tablet PO Label Comments: TAKE 1 TABLET DAILY Breo Ellipta 200-25 mcg/dose blister with device inhalation Label Comments: INHALE one puff DAILY. rinse mouth after each use Flovent Diskus 250 mcg/actuation blister with device 1 inh inhalation QHS albuterol sulfate 90 mcg/actuation HFA aerosol inhaler inhalation cholecalciferol (vitamin D3) 25 mcg (1,000 unit) capsule 25 mcg PO DAILY multivitamin [Daily Multi-Vitamin] Tablet 1 tab PO DAILY calcium citrate 200 mg (950 mg) tablet 200 mg PO BID HEALTHY BRAIN AND FOCUS PO Primary Care Provider: Jaciel Lowry Referrals: Jaciel Lowry MD [Primary Care Provider] - 1 Week if not improving Disposition Disposition: Home, Self Care
== END 2022-05-15 15:35 | disposition home or self-care (01) ==
LOC: ED 15:32
PROVIDERS: Emergency Provider Emergency Medicine; PCP Family Medicine; Visit Provider Emergency Medicine
DX: S60.042A Contusion of left ring finger without damage to nail, initial encounter (principal); W18.40XA Slipping, tripping and stumbling without falling, unspecified, initial encounter; E78.00 Pure hypercholesterolemia, unspecified; Z87.891 Personal history of nicotine dependence; J45.909 Unspecified asthma, uncomplicated
CPT/HCPCS: 73130; 99282

== ENCOUNTER → 2022-07-19 | Outpatient (CLI) | payer MEDICARE, OTHER, SELFPAY ==
--- NOTE | 2022-07-19 12:35 | RAD_ITS ---
STUDY: X-RAY CHEST REASON FOR EXAM: Female, 72 years old. COUGH TECHNIQUE: XR Chest 2 Views COMPARISON: 11/11/2015 FINDINGS: There is atherosclerotic calcification of the aortic arch with tortuosity. There are diffuse degenerative changes of the visualized thoracic spine. There is degenerative osteoarthritis of the bilateral shoulders. There is no demonstrated pleural abnormality. Normal size heart. Normal mediastinum and trang. Normal visualized pulmonary arteries. There is no demonstrated abnormality of the visualized soft tissue structures of the upper abdomen. RAD/Chest PA and Lateral IMPRESSION: There are no acute findings. Electronically Signed: Jairo Min MD at 17:52 EST ,
[2022-07-19 15:34] LABS: Absolute Lymphocyte Count 1.11 X10^3/uL (0.83-4.51); Absolute Neutrophil Count 6.2 X10^3/uL (2.0-7.7); Basophil# 0.04 X10^3/uL; Basophil% 0.5 % (0-1); Eosinophil# 0.02 X10^3/uL; Eosinophils% 0.3 % (0-5); Hematocrit 38.6 % (37-47); Lymphocyte # 1.11 X10^3/ul (0.83-4.51); Lymphocyte % 14.3 % (19-41); Mean Corp Hgb Conc 31.1 g/dL (32-36); Mean Corpuscular Hgb 29.8 pg (27.0-32.0); Mean Corpuscular Volume 95.8 fL (81-99); Mean Platelet Vol. 12.5 fl (6.2-12.0); Monocyte% 3.9 % (0-10); NRBC Flagged by Analyzer 0 % (0-5); Neutrophil # 6.24 X10^3/uL (2.7-7.7); Neutrophil % 80.6 % (47-70); Platelet Count 255 K/mm3 (150-450); RBC Distribution Width CV 12.9 % (11.6-14.6); RBC Distribution Width SD 45.6 fl (35.1-43.9); Red Blood Count 4.03 M/mm3 (4.2-5.4); White Blood Count 7.7 K/mm3 (4.4-11.0)
[2022-07-19 15:48] LABS: Vitamin B12 564 pg/mL (211-911); Vitamin D,25 Hydroxy 45.9 ng/mL
[2022-07-19 15:53] LABS: Erythrocyte Sedimentation Rate 23 mm/hr (0-30)
[2022-07-19 16:07] LABS: ALB/GLOB Ratio 1.2 RATIO (0.9-2.4); AST(SGOT) 12 U/L (15-37); Alanine Aminotransfer ALT/SGPT 24 U/L (13-56); Albumin, Serum 3.7 g/dL (3.2-5.0); Alkaline Phosphatase 69 U/L (45-117); Anion Gap 7 (5-15); BUN 12 mg/dL (7-18); Calcium,Total 9.2 mg/dL (8.5-10.1); Chloride 101 mmol/L (98-107); EST Glomerular Filtration Rate 75 mL/min (>60); Est Glom Filt Rate - Afr Amer 91 mL/min (>60); Globulin 3.2 g/dL (2.2-4.2); Glucose 120 mg/dL (74-106); Iron 46 ug/dL (50-170); Protein, Total 6.9 g/dL (6.4-8.2); Sodium Level 138 mmol/L (136-145); Thyroid Stim Hormone (TSH) 0.85 uIU/mL (0.358-3.74)
== END | disposition home or self-care (01) ==
LOC: MTLAB 12:33
PROVIDERS: PCP Family Medicine; Referring Provider Family Medicine; Visit Provider Family Medicine
DX: R05.9 Cough, unspecified (principal); M19.011 Primary osteoarthritis, right shoulder; M19.012 Primary osteoarthritis, left shoulder; R53.83 Other fatigue
CPT/HCPCS: 36415; 71046; 80053; 82306; 82607; 83540; 84443; 85025; 85652

== ENCOUNTER → 2022-08-14 | Outpatient (CLI) | payer MEDICARE, OTHER, SELFPAY | END | disposition home or self-care (01) | LOC: SL 21:48 | PROVIDERS: PCP Family Medicine; Referring Provider Family Medicine; Visit Provider Family Medicine | DX: G47.33 Obstructive sleep apnea (adult) (pediatric) (principal) | CPT/HCPCS: 95810 ==

== ENCOUNTER → 2022-09-12 | Outpatient (CLI) | payer MEDICARE, OTHER, SELFPAY | END | disposition home or self-care (01) | LOC: SL 11:09 | PROVIDERS: PCP Family Medicine; Referring Provider Family Medicine; Visit Provider Family Medicine | DX: G47.33 Obstructive sleep apnea (adult) (pediatric) (principal) | CPT/HCPCS: 95806 ==

== ENCOUNTER → 2022-10-05 | Outpatient (CLI) | payer MEDICARE, OTHER, SELFPAY ==
--- NOTE | 2022-10-05 15:06 | CT_ITS ---
STUDY: LOW DOSE CT LUNG CANCER SCREENING REASON FOR EXAM: Female, 72 years old. HX NICOTINE DEPENDENCE. Patient smoked one half packs per day for 40 years. Patient quit in 2016. RADIATION DOSAGE (If Supplied By Facility): CTDIvol = ( 3.18 ) mGy, DLP = ( 100.06 ) mGycm TECHNIQUE: No contrast was administered. Low dose technique was utilized (average mAS-38 and kVp 120). 1.25 mm axial source images with a slice interval of 1.25-mm were reconstructed in lung windows. 2.5 mm axial source images with a slice interval of 2.5-mm were reconstructed in lung windows. 5.0 mm axial source images with a slice interval of 5.0-mm were reconstructed in soft tissue windows. COMPARISON: Comparison is made with prior examination dated May 25, 2021. NODULES: Calcified granuloma in the anterior medial aspect of the right middle lobe as seen on axial image #156. This is unchanged. Stable 4.3 mm x 5.8 mm nodule in the anterior posterior aspect of the lingular segment of the left upper lobe. Emphysema: Hyperinflation. Emphysematous changes with centrilobular changes in the upper lobes. Mild linear scarring in the lingular segment of the left upper lobe. Endobronchial lesion: Unremarkable. Aorta: Minimal atherosclerotic plaques. CORONARY ARTERIES: Coronary artery calcification is seen. Heart: Unremarkable. Pulmonary artery: Unremarkable. Mediastinal nodes: Calcified lymph nodes. Other chest and abdominal findings: CT/Low Dose CT Lung Screening IMPRESSION: Lung-RADS category 2 - Continue annual screening with LDCT in 12 months. IMPORTANT NOTES FOR USE: ACR Lung-RADS Version 1.1 Assessment Categories Release Date: 2018 Category: Coded 0-4 bases on nodule(s) with highest degree of suspicion. Negative screen is defined as categories 1 and 2; a positive screen is defined as categories 3 and 4. Category 3 and 4A nodules that are unchanged on interval CT should be coded as category 2, and individuals returned to screening in 12 months. Category 4X: Category 3 or 4 nodules with additional imaging findings that increase the suspicion of lung cancer, such as spiculation, GGN that doubles in size in 1 year, enlarged lymph notes, etc. Category Modifiers: S (significant finding unrelated to lung cancer) Electronically Signed: Hoang Hill MD at 15:27 EST ,
== END | disposition home or self-care (01) ==
LOC: CT 15:04
PROVIDERS: PCP Family Medicine; Referring Provider Family Medicine; Visit Provider Family Medicine
DX: Z87.891 Personal history of nicotine dependence (principal)
CPT/HCPCS: 71271

== ENCOUNTER → 2022-10-16 | Outpatient (CLI) | payer MEDICARE, OTHER, SELFPAY ==
[2022-10-16] MEDS: Zolpidem Tartrate 5 MG Tablet PO (21:10)
== END | disposition home or self-care (01) ==
LOC: SL 20:17
PROVIDERS: PCP Family Medicine; Visit Provider Family Medicine
DX: G47.33 Obstructive sleep apnea (adult) (pediatric) (principal)
CPT/HCPCS: 95810

== ENCOUNTER → 2022-11-06 | Outpatient (CLI) | payer MEDICARE, OTHER, SELFPAY | END | disposition home or self-care (01) | LOC: SL 09:54 | PROVIDERS: PCP Family Medicine; Visit Provider Nurse Practitioner Acute Care | DX: G47.33 Obstructive sleep apnea (adult) (pediatric) (principal); Z99.89 Dependence on other enabling machines and devices ==

== ENCOUNTER → 2022-12-14 | Outpatient (CLI) | payer MEDICARE, OTHER, SELFPAY | END | disposition home or self-care (01) | LOC: SL 13:37 | PROVIDERS: PCP Family Medicine; Referring Provider Nurse Practitioner Acute Care; Visit Provider Nurse Practitioner Acute Care | DX: G47.30 Sleep apnea, unspecified (principal) | CPT/HCPCS: 98960; G0463 ==

== ENCOUNTER 2023-01-11 09:00 | Day surgery (SDC) | payer MEDICARE, OTHER, SELFPAY ==
[2023-01-05 12:03] LABS: Absolute Lymphocyte Count 2.06 X10^3/uL (0.83-4.51); Absolute Neutrophil Count 4.7 X10^3/uL (2.0-7.7); Basophil# 0.05 X10^3/uL; Basophil% 0.7 % (0-1); Eosinophil# 0.19 X10^3/uL; Eosinophils% 2.5 % (0-5); Hematocrit 38.5 % (37-47); Hemoglobin 12.3 g/dL (12.0-15.0); Lymphocyte # 2.06 X10^3/ul (0.83-4.51); Mean Corp Hgb Conc 31.9 g/dL (32-36); Mean Corpuscular Hgb 29.9 pg (27.0-32.0); Mean Corpuscular Volume 93.7 fL (81-99); Mean Platelet Vol. 11.4 fl (6.2-12.0); Monocyte# 0.56 X10^3/uL; Monocyte% 7.3 % (0-10); NRBC Flagged by Analyzer 0 % (0-5); Neutrophil # 4.74 X10^3/uL (2.7-7.7); Platelet Count 245 K/mm3 (150-450); RBC Distribution Width CV 12.9 % (11.6-14.6); RBC Distribution Width SD 44.2 fl (35.1-43.9); Red Blood Count 4.11 M/mm3 (4.2-5.4); White Blood Count 7.6 K/mm3 (4.4-11.0)
[2023-01-05 12:26] LABS: Anion Gap 5 (5-15); BUN 14 mg/dL (7-18); BUN/Creat Ratio 15.4 RATIO (10-20); Calcium,Total 9.4 mg/dL (8.5-10.1); Chloride 104 mmol/L (98-107); Creatinine, Serum 0.91 mg/dL (0.55-1.02); EST Glomerular Filtration Rate 65 mL/min (>60); Est Glom Filt Rate - Afr Amer 79 mL/min (>60); Glucose 109 mg/dL (74-106); Potassium 3.8 mmol/L (3.5-5.1); Sodium Level 139 mmol/L (136-145)
[2023-01-11] VITALS (7 sets, daily range): BP systolic 108–159; BP diastolic 55–99; PULSE 74–97; RESP 16–20; TEMP 36.1–37; O2SAT 95–98; BMI 47.9
[2023-01-11] MEDS: Lactated Ringers 1,000 ML 15 ML IV (09:29)
--- NOTE | 2023-01-11 10:40 | GANG_PTH ---
PATIENT: DUSTIN CHANG LOC: [facility] [place] U#:[id number] AGE/SX: 72/F ROOM: RE01/11/[address]: Dr. Gold Zhang DO : 1950 BED: DIS: 01/11/2023 SPEC #: [id number] RECD: 01/11/23 13:07 STATUS: SHAHZAD FERNANDO #: [id number] RICKI: 01/11/23 10:[address]: Gold Zhang DEPT: SURGICAL PATHOLOGY RECD BY: Frederic Pool ENTERED: 01/11/23 13:50 SP TYPE: GANGLION OTHR DR: Dr. Romero Lowry MD Tissues: GANGLION CYST Procedures: Surgery Specimen Level III HEADER OPERATION: Excision cyst ankle PRE-OP DIAGNOSIS: Bursal cyst right ankle and foot TISSUE SUBMITTED: Right ankle ganglion cyst MICROSCOPIC DIAGNOSIS Right ankle ganglion cyst, excision: Consistent with ganglion cyst. Focal chronic inflammation and reactive changes. Focal changes consistent with pseudogout. EJ:estefani 01/12/2023 MICROSCOPIC DESCRIPTION Slides are reviewed. GROSS DESCRIPTION Received in fixative is one container labeled with the patient's name and designated ankle ganglion cyst. The specimen consists of multiple irregular fragments of lemon soft tissue that in aggregate measure 5.0 x 3.0 x 0.3 cm. The entire specimen is submitted in two cassettes. / EJ:estefani 01/11/2023 TC:5 CPT: 97140
--- NOTE | 2023-01-11 10:47 | DCINST_ITS ---
Discharge Instructions Follow Up Care Test Results: Test results from this visit will be discussed in further detail at your follow- up appointment, if applicable. Discharge Plan Admission Primary Reason for Your Visit: Right ankle cyst excision Attending Provider: Gold Zhang Primary Care Provider: Jaciel Lowry Instructions Additional Instructions / Restrictions: Follow preprinted instructions from your surgeons office. Discharge Orders/Prescriptions Prescriptions: No Action sertraline 50 mg tablet 1 tablet PO DAILY meloxicam 15 mg tablet 15 mg PO DAILY Label Comments: TAKE 1 TABLET BY MOUTH DAILY simvastatin 10 mg tablet 10 mg PO QHS losartan 50 mg tablet 100 mg PO DAILY hydrochlorothiazide 25 mg tablet 25 mg PO DAILY Label Comments: TAKE 1 TABLET DAILY fluticasone furoate-vilanterol [Breo Ellipta] 200-25 mcg/dose blister with device 2 inh inhalation DAILY Label Comments: INHALE one puff DAILY. rinse mouth after each use Flovent Diskus 250 mcg/actuation blister with device 1 inh inhalation QHS albuterol sulfate 90 mcg/actuation HFA aerosol inhaler 90 gm inhalation DAILY PRN PRN (Reason: BRONCHOSPASMS) cholecalciferol (vitamin D3) 25 mcg (1,000 unit) capsule 25 mcg PO DAILY multivitamin [Daily Multi-Vitamin] Tablet 1 tab PO DAILY calcium citrate 200 mg (950 mg) tablet 200 mg PO BID potassium chloride 20 mEq Tablet,Er Particles/Crystals 20 meq PO DAILY montelukast 10 mg Tablet 10 mg PO QHS dextroamphetamine-amphetamine [Adderall] 20 mg Tablet 20 mg PO DAILY Referrals / Follow Up: Jaciel Lowry MD [Primary Care Provider] - Gold Zhang DO [Med Staff - Active Staff] - Disposition Disposition (needs filled in before D/C Order can be placed): Home, Self Care
--- NOTE | 2023-01-11 11:08 | OP.PCM_ITS ---
Report of Operation Date of Procedure: 01/11/23
--- NOTE | 2023-01-11 11:08 | PCM.OPRPT ---
Report of Operation Date of Procedure: 01/11/23 Description of Surgical Findings:: Preoperative diagnosis: Right ankle ganglion cyst Postoperative diagnosis: Right ankle ganglion cyst Procedure: Right ankle ganglion cyst excision Primary Surgeon: Gold Zhang DO Computer Equipment Repairer: Keri Lara PA-C Estimated blood loss: 10 cc Urine output: None recorded IV fluids: 1 L crystalloid Specimen: Right ankle ganglion cyst Packing/drains: None Implants: None Intraoperative findings: Right ankle ganglion cyst with abundant scar tissue, cyst appeared to be arising from the tibiotalar joint. Mucinous fluid within the cyst. Preoperative indications: This is 72-year-old female seen in the outpatient setting for right ankle pain and enlarging mass. Patient had a ganglion cyst removed in the remote past. She states this is slowly returned. Aspiration was attempted in the office but yielded very little aspirate. MRI was obtained and demonstrated findings consistent with a ganglion cyst. We discussed benign neglect versus operative excision. Patient wished to proceed with operative intervention. We discussed the risks, benefits, alternatives to right ankle ganglion cyst excision. The risks included but were not limited to bleeding, flexion, loss of life or limb, need for additional surgery, persistent pain, nonhealing wounds, cyst recurrence, neurovascular injury, DVT or PE, risk of anesthesia. Patient expressed understanding and wished to proceed with surgery. Description of procedure: Patient was identified in preoperative holding area by name, medical record number, and date of . The operative extremity was marked. All questions were answered to the patient's satisfaction. At time of her procedure, patient was brought to the operative suite and positioned supine a standard operating table. MAC anesthesia was induced. A well-padded pneumatic tourniquet was applied to the right calf. All bony prominences were well-padded. Prior to prepping, I administered a tumescent field block with 10 cc total 1% lidocaine. We then prepped and draped the right foot and ankle in a normal, sterile orthopedic fashion. We performed a timeout with all parties in attendance in agreement with the side, site, and operation be performed. No concerns were voiced and would like to proceed with surgery. 3 g Ancef was administered IV prior to the incision by anesthesia staff. After sustained to the right lower extremity and Esmarch bandage. Tourniquet was inflated to 250 mmHg which remained up for 15 minutes. Esmarch was removed. I confirmed anesthesia overlying the cyst and planned incision. Skin was then sharply incised overlying the anterior lateral ankle. I bluntly dissected down to the level of the cyst capsule. Cyst capsule was freed from surrounding adhesions. Cyst wall was punctured and mucinous typical ganglion cyst material was expressed. The cyst was then sharply excised. Prior to puncture, the cyst measured 5 x 3 x 3 cm. Cyst dissection was then taken to its stalk which appeared to be arising from the region of the ATFL. The cyst stalk was then sharply debrided and cauterized. I then thoroughly irrigated the wound with normal saline solution. Tourniquet was deflated and hemostasis was excellent. We reapproximated the fascial void with 3-0 Vicryl suture. Dermis was reapproximated with 3-0 Vicryl buried suture. Skin was finally reapproximated with interrupted 4-0 nylon in horizontal mattress fashion. A bulky sterile compression dressing was applied. Patient was placed in a postoperative shoe. She was safely awoken in the operative suite and transferred to her gurney and subsequently to PACU in stable condition. Need for skilled research program assistant: Keri Lara PA-C was critical to the outcome of the case. During the course of the procedure the physician research program assistant played a vital role. Her intimate knowledge of my steps in the procedure aided in safe and expedient completion of the procedure. The PA played a vital role in positioning particularly in obtaining the appropriate positioning. The PA was also vital in the retraction of soft tissues during the exposure and protecting vital structures. She also played a vital role in closure and dressing application with my direct supervision. Postoperative plan: Weightbearing as tolerated operative extremity in postop shoe. No driving until follow-up Ice and elevation Pain prescription provided in the outpatient setting Aspirin 81 mg twice daily for DVT prophylaxis x2 weeks Follow-up in 2 weeks for suture removal Maintain dressing and then remove and okay to shower on postoperative day #3
[2023-01-11] MEDS: Ketorolac 30 MG/ML Syringe IV (12:07)
== END 2023-01-11 12:26 | disposition home or self-care (01) ==
LOC: SDC 09:00 → AC 09:01
PROVIDERS: PCP Family Medicine; Referring Provider Student in an Organized Health Care Education/Training Program; Visit Provider Student in an Organized Health Care Education/Training Program
PROC: (CPT 27630; principal; 2023-01-11 10:30)
DX: M67.471 Ganglion, right ankle and foot (principal); F90.9 Attention-deficit hyperactivity disorder, unspecified type; I10 Essential (primary) hypertension; Z87.891 Personal history of nicotine dependence; M71.371 Other bursal cyst, right ankle and foot; M19.071 Primary osteoarthritis, right ankle and foot
CPT/HCPCS: 27630; 36415; 80048; 85025; 88304; J7120; J2405

== ENCOUNTER → 2023-10-11 | Outpatient (CLI) | payer MEDICARE, SELFPAY ==
--- NOTE | 2023-10-11 14:16 | BD_ITS ---
STUDY: DUAL ENERGY X-RAY ABSORPTIOMETRY / DXA REASON FOR EXAM: Female, 73 years old. Z780 TECHNIQUE: Bone Mineral Density (BMD) measurements of lumbar spine and bilateral hips were obtained. COMPARISON: Comparison is made with prior study June 22, 2021. FINDINGS: Lumbar Spine (L1-L4): g/cm2 (0.954) / T-score (-0.6) / Z-score (1.6) Findings are suggestive of normal bone density with a low fracture risk. Left Femur Total: g/cm2 (0.887) / T-score (-0.5) / Z-score (1.2) Left Femoral Neck: g/cm2 (0.648) / T-score (-1.8) / Z-score (0.1) Right Femur Total: g/cm2 (0.963) / T-score (0.2) / Z-score (1.8) Right Femoral Neck: g/cm2 (0.753) / T-score (-0.9) / Z-score (1.1) Left Forearm: g/cm2 (0.495) / T-score (-1.6) / Z-score (0.6) The T-Scores on the most recent prior examination were: Lumbar Spine (L1-L4): There has been improvement of bone density since the previous examination. Left Femur Total: which represents a worsening of 10.7%. Right Femur Total: which represents a worsening of 4.6%. BD/Dexa Bone Density Study IMPRESSION: The patient is considered osteopenic as outlined below according to World Abad Organization (WHO) criteria with a moderate fracture risk. There has been worsening of bone density since the previous examination. Reference Information: The T-score is the number of standard deviations above or below the standard which is normal for young adults at their peak bone mineral density. The World Health Organization (WHO) interprets the T-scores as follows: Above -1 Normal bone density Between -1 and -2.5 Osteopenia Equal to / or below -2.5 Osteoporosis As a practical clinical guideline, osteopenia may be graded as follows: Mild -1 through -1.5 Moderate -1.6 through -2.0 Severe -2.1 through -2.4 The Z-score is the number of standard deviations above or below age-matched controls. A Z-score of less than -1.5 would be considered abnormal. References: 1. NIH Osteoporosis and Related Bone Diseases www osteo.org 2. International Society for Clinical Densitometry www iscd.org 3. National Osteoporosis Foundation www nof.org Electronically Signed: Hoang Hill MD at 12:19 EDT ,
--- NOTE | 2023-10-11 14:16 | BI_ITS ---
MAMMOGRAPHY - BILATERAL SCREENING REASON FOR EXAM: Female, 73 years old. Routine annual screening examination. PERTINENT HISTORY: Non-contributory. TECHNIQUE: Digital bilateral breast nas (3D mammographic acquisition) in the CC and MLO projections. 2-D mediolateral oblique (MLO) and craniocaudad (CC) views of both breasts were obtained. CAD: Full Field Digital Mammography with Computer Added Detection was performed. COMPARISON: Comparison is made with prior study June 22, 2021 and December 24, 2018. FINDINGS: Breast Composition: The breasts are almost entirely fatty. There are no dominant masses or suspicious calcifications. Stable 6 mm well-defined nodule in the axillary region of the left breast suggestive of a small lymph node. Small stable bilateral axillary lymph nodes. No other significant abnormalities are identified. There has been no significant change since the prior study. BI/SCRN MAMM (CAD)W/NAS BILAT IMPRESSION: Stable bilateral screening mammogram. Yearly follow-up mammogram recommended. (A) ASSESSMENT CATEGORY: BIRADS Category 2: Benign. A letter regarding these results will be sent to the patient by the facility within 30 days. Approximately 10% of breast cancers are not detected by mammography. A normal mammogram should not delay biopsy of a clinically suspicious abnormality. [id number] Electronically Signed: Hoang Hill MD at 8:27 EDT ,
== END | disposition home or self-care (01) ==
LOC: OPBD 14:15
PROVIDERS: PCP Family Medicine; Referring Provider Family Medicine; Visit Provider Family Medicine
DX: Z00.00 Encounter for general adult medical examination without abnormal findings (principal); Z12.31 Encounter for screening mammogram for malignant neoplasm of breast; Z78.0 Asymptomatic menopausal state
CPT/HCPCS: 77063; 77067; 77080

== ENCOUNTER 2024-05-21 10:29 | Outpatient (CLI) | payer MEDICARE, SELFPAY ==
[2024-05-21 12:26] LABS: Erythrocyte Sedimentation Rate 16 mm/hr (0-30)
[2024-05-21 12:43] LABS: Vitamin B12 445 pg/mL (211-911); Vitamin D,25 Hydroxy 31.6 ng/mL
[2024-05-21 13:24] LABS: ALB/GLOB Ratio 1.1 RATIO (0.9-2.4); AST(SGOT) 8 U/L (15-37); Alanine Aminotransfer ALT/SGPT 16 U/L (13-56); Albumin, Serum 3.8 g/dL (3.2-5.0); Alkaline Phosphatase 91 U/L (45-117); Anion Gap 6 (5-15); BUN 15 mg/dL (7-18); BUN/Creat Ratio 15.9 RATIO (10-20); Calcium,Total 9.5 mg/dL (8.5-10.1); Chloride 104 mmol/L (98-107); Cholesterol 207 mg/dL (200); Creatinine, Serum 0.94 mg/dL (0.55-1.02); EST Glomerular Filtration Rate 62 mL/min (>60); Est Glom Filt Rate - Afr Amer 75 mL/min (>60); Ferritin 32 ng/mL (8-252); Globulin 3.5 g/dL (2.2-4.2); Glucose 114 mg/dL (74-106); High Density Lipoprotein 59 mg/dL; Iron 79 ug/dL (50-170); Potassium 3.6 mmol/L (3.5-5.1); Protein, Total 7.3 g/dL (6.4-8.2); Sodium Level 138 mmol/L (136-145); Triglycerides 110 mg/dL; Very Low Density Lipoprotein 22 mg/dL (5-40)
[2024-05-21 18:33] LABS: Absolute Lymphocyte Count 1.72 X10^3/uL (0.83-4.51); Absolute Neutrophil Count 4.3 X10^3/uL (2.0-7.7); Basophil# 0.04 X10^3/uL; Basophil% 0.6 % (0-1); Eosinophil# 0.19 X10^3/uL; Eosinophils% 2.8 % (0-5); Hematocrit 40.8 % (37-47); Hemoglobin 12.8 g/dL (12.0-15.0); Lymphocyte # 1.72 X10^3/ul (0.83-4.51); Lymphocyte % 25.1 % (19-41); Mean Corp Hgb Conc 31.4 g/dL (32-36); Mean Corpuscular Hgb 28.9 pg (27.0-32.0); Mean Corpuscular Volume 92.1 fL (81-99); Mean Platelet Vol. 12.6 fl (6.2-12.0); Monocyte# 0.58 X10^3/uL; Monocyte% 8.5 % (0-10); NRBC Flagged by Analyzer 0 % (0-5); Neutrophil # 4.32 X10^3/uL (2.7-7.7); Neutrophil % 62.9 % (47-70); Platelet Count 230 K/mm3 (150-450); RBC Distribution Width CV 13.2 % (11.6-14.6); RBC Distribution Width SD 44.9 fl (35.1-43.9); Red Blood Count 4.43 M/mm3 (4.2-5.4); White Blood Count 6.9 K/mm3 (4.4-11.0)
== END 2024-05-21 23:59 | disposition home or self-care (01) ==
LOC: MTLAB 10:32
PROVIDERS: PCP Family Medicine; Referring Provider Family Medicine; Visit Provider Family Medicine
DX: I10 Essential (primary) hypertension (principal); E55.9 Vitamin D deficiency, unspecified; F32.A Depression, unspecified; R53.83 Other fatigue
CPT/HCPCS: 36415; 80053; 80061; 82306; 82607; 82728; 83540; 84443; 85025; 85652

== ENCOUNTER → 2024-06-24 | Outpatient (CLI) | payer MEDICARE, SELFPAY ==
--- NOTE | 2024-06-24 16:09 | RAD_ITS ---
EXAM: XR RIGHT HIP WITH PELVIS WHEN PERFORMED, 2 OR 3 VIEWS CLINICAL INDICATION: R hip pain TECHNIQUE: Two or three views of the right hip with pelvis when performed. COMPARISON: No relevant prior studies available. FINDINGS: BONES/JOINTS: There are bilateral pedicle screws from posterior fusion of L4 and L5. There is narrowing of the hip joint spaces bilaterally greater on the left than on the right. No displaced fracture. No destructive or sclerotic lesions. Note that overlapping bowel shadows may however obscure fine detail. Sacroiliac joint is unremarkable. No widening of the pubic symphysis. SOFT TISSUES: Unremarkable. No soft tissue swelling or gas. RAD/HIP, UNI W/ Pelvis 2-3 Views IMPRESSION: Degenerative changes with narrowing of the hip joint spaces greater on the left. There is no acute osseous abnormality. Electronically Signed: Janes Hopkins MD at 9:31 EST ,
--- NOTE | 2024-06-24 16:09 | RAD_ITS ---
EXAM: XR LUMBOSACRAL SPINE COMPLETE WITH FLEXION/EXTENSION, 6 OR MORE VIEWS CLINICAL INDICATION: pain in right hip TECHNIQUE: Lateral, frontal, oblique and lateral flexion/extension views of the lumbar spine and sacrum. COMPARISON: No relevant prior studies available. FINDINGS: VERTEBRAE: There is a posterior fusion of L4 and L5. There is no change in alignment with flexion or extension views. Preserved vertebral body height. No fracture. No spondylolisthesis. Preservation of the normal lumbar lordosis. No significant facet arthropathy. No instability. DISC SPACES: There is disc space narrowing at L3-4. GASTROINTESTINAL TRACT: Unremarkable as visualized. Included bowel gas pattern is non-obstructive. RAD/L/S Spine w Bend Min 6 Vw IMPRESSION: Marked degenerative changes with narrowing of the disc space at L3-4. There is a posterior fusion at L4-5. There are no acute osseous abnormalities. Electronically Signed: Janes Hopkins MD at 9:32 EST ,
== END | disposition home or self-care (01) ==
LOC: MTRAD 16:07
PROVIDERS: PCP Family Medicine; Referring Provider Family Medicine; Visit Provider Family Medicine
DX: M25.551 Pain in right hip (principal)
CPT/HCPCS: 72114; 73502

== ENCOUNTER 2024-08-25 23:56 | Observation (INO) | payer MEDICARE, SELFPAY ==
[2024-08-25 23:57] VITALS: BP 160/105; PULSE 101; RESP 15; TEMP 37.1; O2SAT 97; BMI 53.1
[2024-08-26] VITALS (11 sets, daily range): BP systolic 104–153; BP diastolic 52–127; PULSE 63–106; RESP 14–19; TEMP 36.2–37.2; O2SAT 88–100; BMI 51.4
--- NOTE | 2024-08-26 00:15 | RAD_ITS ---
INDICATION: pain FALL. LEFT LEG/HIP PAIN EXAMINATION/TECHNIQUE: X-RAY - LEFT XR Ankle Min 3 Views 3 VIEWS COMPARISON: No relevant prior comparison study available FINDINGS: BONES: Suspect nondisplaced fracture distal fibula.. JOINTS: No dislocation. SOFT TISSUES: Mild diffuse swelling. RAD/Ankle min 3 Views IMPRESSION: Suspected nondisplaced distal fibular fracture.. Electronically Signed: Kalyn Trinidad MD at 3:43 EST ,
--- NOTE | 2024-08-26 00:15 | RAD_ITS ---
INDICATION: painFALL. LEFT LEG/HIP PAIN EXAMINATION/TECHNIQUE: X-RAY - LEFT XR Knee 1 or 2 Views 2 VIEWS COMPARISON: No relevant prior comparison study available FINDINGS: BONES: No fracture demonstrated. Mild joint space narrowing mainly at the patellofemoral and medial compartments. JOINTS: No dislocation. SOFT TISSUES: Joint effusion. RAD/Knee 1 or 2 Views IMPRESSION: Joint effusion. No evidence of fracture. Electronically Signed: Kalyn Trinidad MD at 3:43 EST ,
[2024-08-26] MEDS: Ondansetron 4 MG/2 ML Vial IV (00:19)
[2024-08-26] MEDS: Morphine 4 MG/ML Syringe IV (00:19)
--- NOTE | 2024-08-26 01:10 | RAD_ITS ---
INDICATION: pain FALL. LEFT LEG/HIP PAIN EXAMINATION/TECHNIQUE: X-RAY - XR Hip Unilateral with Pelvis when performed; 2-3 Views COMPARISON: No relevant prior comparison study available FINDINGS: No fracture demonstrated. Femoral heads are normal contour. No dislocation at the hips. Mild joint space narrowing at the hips greater on the left. Surgical hardware at the lower lumbar spine. RAD/HIP, UNI W/ Pelvis 2-3 Views IMPRESSION: No evidence of fracture. Electronically Signed: Kalyn Trinidad MD at 3:43 EST ,
[2024-08-26] MEDS: HYDROmorphone 0.5 MG/0.5 ML SYRINGE IV ×2 (03:06→05:24)
[2024-08-26 03:19] LABS: Absolute Lymphocyte Count 1.48 X10^3/uL (0.83-4.51); Basophil# 0.03 X10^3/uL; Basophil% 0.3 % (0-1); Eosinophil# 0.04 X10^3/uL; Eosinophils% 0.4 % (0-5); Hematocrit 35.5 % (37-47); Hemoglobin 11.4 g/dL (12.0-15.0); Lymphocyte # 1.48 X10^3/ul (0.83-4.51); Lymphocyte % 15.4 % (19-41); Mean Corp Hgb Conc 32.1 g/dL (32-36); Mean Corpuscular Hgb 28.5 pg (27.0-32.0); Mean Corpuscular Volume 88.8 fL (81-99); Mean Platelet Vol. 11.8 fl (6.2-12.0); Monocyte# 0.97 X10^3/uL; Monocyte% 10.1 % (0-10); NRBC Flagged by Analyzer 0 % (0-5); Neutrophil # 7.02 X10^3/uL (2.7-7.7); Neutrophil % 73.4 % (47-70); Platelet Count 207 K/mm3 (150-450); RBC Distribution Width CV 13.4 % (11.6-14.6); White Blood Count 9.6 K/mm3 (4.4-11.0)
[2024-08-26 03:20] LABS: Erythrocyte Sedimentation Rate 46 mm/hr (0-30)
[2024-08-26 03:26] LABS: Anion Gap 5 (5-15); BUN 11 mg/dL (7-18); Calcium,Total 8.6 mg/dL (8.5-10.1); Chloride 103 mmol/L (98-107); Creatinine, Serum 0.78 mg/dL (0.55-1.02); EST Glomerular Filtration Rate 77 mL/min (>60); Est Glom Filt Rate - Afr Amer 93 mL/min (>60); Estimated Creatinine Clearance 97.37 ml/min; Glucose 103 mg/dL (74-106); Potassium 3.3 mmol/L (3.5-5.1); Sodium Level 136 mmol/L (136-145)
[2024-08-26 03:31] LABS: Lactic Acid 0.7 mmol/L (0.4-1.9)
[2024-08-26] MEDS: Lidocaine 2% /Epi 1:100 (20ml) 20 ML VIAL INFILT (04:03)
[2024-08-26 04:36] LABS: Pathologist Comment May follow
--- NOTE | 2024-08-26 06:29 | EX.ED.DYSGE1 ---
HPI History of Present Illness Chief Complaint: Fall Informant: patient and spouse/S.O. Narrative Narrative: Patient is a 74-year-old female who lives at home with her and has a past medical history of hypertension hyperlipidemia and osteoarthritis. Patient states that she got up this evening to use the bathroom and could not stand on her left leg which caused her to fall/slide out of bed. She states her could not get her back up and therefore called EMS and she was brought in for evaluation. She denies striking her head or any loss of consciousness she denies history of bleeding disorder or blood thinner use Once arrived to the ER he reported that the patient's left knee has been bothering her for almost 1 week. He states that she typically gets around with a walker but in the last few days has not been able to do this secondary to the pain in her left knee. He states it took her almost 3 hours to get off the toilet. He states this evening he thought she was doing better as he heard her try to get up and ambulate but then found her on the ground as she reported. Therefore with the persistent pain and inability to ambulate she was brought in for evaluation [facility] Medical History Wears glasses Wears dentures Depression Ambulates with cane ADHD Back pain Heartburn Former smoker Hypertension Shortness of breath on exertion Leg cramps History of edema Osteoarthritis High cholesterol High blood pressure Back problem Asthma Arthritis Seasonal allergies Fl[place] Home Medications ?Medication ?Instructions ?Recorded ?Last Taken ?Type albuterol sulfate 90 mcg/actuation 90 gm inhalation DAILY PRN PRN 04/14/21 Unknown History aerosol inhaler BRONCHOSPASMS calcium citrate 200 mg PO BID 04/14/21 Unknown History cholecalciferol (vitamin D3) 25 25 mcg PO DAILY 04/14/21 Unknown History mcg (1,000 unit) capsule fluticasone furoate 200 2 inh inhalation DAILY 04/14/21 Unknown History mcg-vilanterol 25 mcg/dose inhalation powder (Breo Ellipta) hydrochlorothiazide 25 mg tablet 25 mg PO DAILY HTN 04/14/21 01/11/23 07:45 History losartan 50 mg tablet 100 mg PO DAILY HTN 04/14/21 01/11/23 07:45 History meloxicam 15 mg tablet 15 mg PO DAILY ARTHRITIS 04/14/21 Unknown History multivitamin (Daily Multi-Vitamin 1 tab PO DAILY SUPPLEMENT 04/14/21 Unknown History tablet) sertraline 50 mg tablet 1 tablet PO DAILY NERVES 04/14/21 Unknown History simvastatin 10 mg tablet 10 mg PO QHS HLD 04/14/21 Unknown History dextroamphetamine-amphetamine 20 20 mg PO DAILY 01/05/23 Unknown History mg tablet (Adderall) montelukast 10 mg tablet 10 mg PO QHS ALLERGIES 01/05/23 Unknown History potassium chloride 20 mEq 20 meq PO DAILY 01/05/23 Unknown History tablet,extended release(part/cryst) bupropion HCl 300 mg 24 hr tablet, 300 mg PO DAILY 08/26/24 Unknown History extended release Allergy/AdvReac Type Severity Reaction Status Date / Time cat dander Allergy Mild Laryngospas Verified 08/25/24 23:57 ms Family History (Reviewed 10/26/22 @ 13:27 by Bobbi Norwood ARMORED VEHICLE OFFICER, ARMORED VEHICLE OFFICER-C) Other CVA (cerebral vascular accident) Cancer Myocardial infarction Surgical History History of colonoscopy History of removal of cyst History of tubal ligation H/O total hysterectomy Total knee replacement status Previous back surgery Social History (Reviewed 10/26/22 @ 13:27 by Bobbi Norwood ARMORED VEHICLE OFFICER, ARMORED VEHICLE OFFICER-C) Smoking Status: Former smoker alcohol intake: current alcohol intake frequency: 0-2 drinks per day substance use type: does not use what type of physical activity do you participate in: none ROS ROS ED Constitutional Constitutional ED: Denies chills or fever(s) Eyes Eyes: Denies blurry vision or change in vision ENT ENT ED: Denies sore throat Cardiovascular Cardiovascular: Denies chest pain or palpitations Respiratory/Chest Respiratory/Chest: Denies cough or dyspnea Gastrointestinal Gastrointestinal: Denies abdominal pain, diarrhea, nausea or vomiting Genitourinary Genitourinary ED: Denies dysuria Musculoskeletal Musculoskeletal: Reports other Details: Positive left knee and ankle pain ; Denies back pain or neck pain Integumentary Denies Abrasions or rash Neurologic Neurologic: Reports weakness; Denies headache(s) or paresthesias Hematologic/Lymphatic Hematologic/Lymphatic: Denies easy bleeding or easy bruising EXAM Physical Exam Const Vital Signs: 08/25/24 23:57 08/25/24 23:57 08/26/24 03:56 Temperature 98.7 F Temperature Source Oral Pulse Rate 101 H 76 Respiratory Rate 15 18 Respiratory Effort Normal Respiratory Depth Normal Respiratory Pattern Normal Blood Pressure 160/105 H Blood Pressure Mean 123 Pulse Ox 97 99 Oxygen Delivery Method Room Air Room Air Room Air Oxygen Flow Rate (L/min) 96 08/26/24 07:00 Temperature Temperature Source Pulse Rate 83 Respiratory Rate 14 Respiratory Effort Respiratory Depth Respiratory Pattern Blood Pressure 134/99 H Blood Pressure Mean 110 Pulse Ox 88 Oxygen Delivery Method Room Air Oxygen Flow Rate (L/min) Positive well nourished, well developed and obese General Appearance ED: well developed; Negative for pallor Nutritional Appearance: obese HEENT HEENT Narrative: Normocephalic atraumatic No signs of depressed or basilar skull fracture Eyes PERRL and EOMs intact bilaterally General Eye ED: Negative for scleral icterus Neck supple Neck Narrative: No bony deformity or step-off of the cervical spine no midline tenderness to palpation Chest Wall palpation of chest normal Chest Narrative: No bony deformity or crepitance or subcutaneous emphysema noted Resp normal respiratory effort and clear to auscultation bilaterally Resp Narrative: Breath sounds are diminished throughout but overall clear to auscultation without signs of respiratory distress Cardio regular rate and regular rhythm Rate: other Other Details: Heart is regular rate and rhythm Radial and carotid pulses are equal and symmetric GI normal to inspection, nondistended, normoactive bowel sounds, non-tender, non-distended and no masses Auscultation: normoactive bowel sounds Palpation: soft Extremity Extremity Narrative: Pelvis is stable there is no shortening or external rotation of either lower extremity Patient does have a joint effusion noted along the left knee. There is overlying warmth and faint ecchymosis. No obvious erythema present. No crepitance or lymphangitic streaking. No obvious bony deformity. Patient also has soft tissue swelling along the left ankle with pain with palpation diffusely. No obvious bony deformity or joint effusion. There is also pain with palpation along the greater trochanter region of the left hip Active and passive range of motion is severely limited secondary to pain The patient is unable to straight leg raise her left leg off the bed however there is no appreciable deformity to suggest patellar tendon/quadriceps tendon rupture Compartments are soft and compressible going against compartment syndrome Negative Homans' sign bilaterally Remainder the exam is normal Neuro oriented x3, CN's II-XII intact bilaterally and no sensory deficits noted Sensorium / Orientation: alert Psych mental status grossly normal Skin no rashes or lesions noted Skin Narrative: Soft tissue swelling/joint effusion with asymmetric warmth and faint ecchymosis along the anterior aspect of the left knee as documented above General Skin Exam: Negative for jaundice or pallor MDM MDM MDM Narrative Medical decision making narrative: Patient arrived to the ER hypertensive but otherwise with stable vitals and has a past medical history of this. She reported that she fell out of bed and cause pain to her left leg to the point where she could not ambulate. As she reported was a mechanical fall I felt no need for cardiac or syncope workup. She has no signs of head trauma she does not take blood thinners nor have a history of bleeding disorder so I have low concern for traumatic subarachnoid or subdural hemorrhage and felt no need for head CT. With concern for fracture versus dislocation versus contusion x-rays were ordered. After arrived and inform me that the patient's pain to the left knee has been persistent and worsening over the past week without known trauma and she does have a joint effusion with asymmetric warmth there is concern for hemarthrosis versus gout versus septic joint. Therefore I added blood work on board. Patient's white count is normal at 9.6 and she does not have left shift or lactic acidosis but her ESR and CRP are elevated which could be concerning for an inflammatory or infectious process. Therefore I performed a joint aspiration of the left knee as documented below. The case was discussed with orthopedics who recommends that the patient just be followed at this time and as the Gram stain does not show any organisms and she has a [place] joint that antibiotics be held. As she cannot ambulate the case was discussed with the hospitalist who agrees to admit the patient for continued care Patient had her left knee aspirated. The knee was placed in a flexed position. The knee was cleaned with chlorhexidine and the procedure performed in sterile fashion. 8 cc of 2% lidocaine with epinephrine was injected into the lateral aspect of the left knee roughly 1 cm lateral from the inferior border of the patella and the patellar tendon using an infrapatellar approach. After anesthesia was achieved a 18-gauge needle was used to cannulate the joint space. There was approximately 70 cc of thin watery yellow/straw-colored joint fluid aspirated. Following aspiration there was near complete resolution of the joint effusion. Patient had a bandage placed over top the injection site and the knee was wrapped with an Sunil wrap. Patient tolerated procedure well without complication History & Record Review Discussion w/independent historian: Patient and Family Lab Data Attestation: I reviewed the patient's lab results. Labs: Laboratory Results - last 24 hr 08/26/24 08/26/24 03:00 04:33 WBC 9.6 RBC 4.00 L Hgb 11.4 L Hct 35.5 L MCV 88.8 MCH 28.5 MCHC 32.1 RDW Std Deviation 44.0 H RDW Coeff of Emelyn 13.4 Plt Count 207 MPV 11.8 Immature Gran % (Auto) 0.400 Neut % (Auto) 73.4 H Lymph % (Auto) 15.4 L [place] % (Auto) 10.1 H Eos % (Auto) 0.4 Baso % (Auto) 0.3 Absolute Neuts (auto) 7.0 Absolute Lymphs (auto) 1.48 Nucleated RBC % 0 ESR 46 H Sodium 136 Potassium 3.3 L Chloride 103 Carbon Dioxide 29.0 Anion Gap 5 BUN 11 Creatinine 0.78 Estim Creat Clear Calc 97.37 Est GFR (MDRD) Af Amer 93 Est GFR (MDRD) Non-Af 77 BUN/Creatinine Ratio 14.0 Glucose 103 Lactic Acid 0.7 Calcium 8.6 C-React Prot Ext Range 85.80 H Fluid Source Cancelled Fluid Color Cancelled Fluid Appearance Cancelled Fluid WBC Cancelled Fluid RBC Cancelled Fluid Tot Cell Count Cancelled Fld Polynuclear WBCs # Cancelled Fld Polynuclear WBCs % Cancelled Fluid Mononuclear WBCs Cancelled Fld Mononuclear WBCs % Cancelled Fluid Neutrophils Cancelled Fluid Lymphocytes Cancelled Fluid Monocytes Cancelled Fluid Plasma Cells Cancelled Fluid Macrophages Cancelled Fld Mesothelial Cells Cancelled Fluid Other Cells Cancelled Fluid Crystals See PATH REV Fluid Crystal Source SYNOVIAL Fl Crystal Path Review Will follow Fl Pathologist Comment Cancelled Fluid Comment 2 Cancelled Synovial Source KNEE Synovial Color Yellow Synovial Appearance Cloudy Synovial WBC 28.0290 H Synovial RBC 62 H Synovial Tot Cell Ct 28.0560 H Synovial Neutrophils 95 H Synovial Lymphocytes [address] Comment May follow Radiography Diagnostic Testing: Clinical Impression(s) from Imaging Studies Ankle X-Ray 08/26/24 00:15 IMPRESSION: Suspected nondisplaced distal fibular fracture.. Electronically Signed: Kalyn Trinidad MD at 3:43 EST Reading Location ID and State: [facility] / [place] Tel , Service support , Knee X-Ray 08/26/24 00:15 IMPRESSION: Joint effusion. No evidence of fracture. Electronically Signed: Kalyn Trinidad MD at 3:43 EST , Hip/Pelvis X-Ray 08/26/24 01:10 IMPRESSION: No evidence of fracture. Electronically Signed: Kalyn Trinidad MD at 3:43 EST , X-ray of the left hip with 1 view pelvis as interpreted by the emergency medicine physician reveals no acute fracture or dislocation X-ray of the left knee as interpreted by the emergency medicine physician reveals a joint effusion without acute fracture or dislocation X-ray of the left ankle as interpreted by the emergency medicine physician reveals soft tissue swelling without acute fracture or dislocation. Discharge Plan Triage Chief Complaint: Fall ED Provider: Adarsh Rodriguez Dx/Rx/DC Orders Clinical Impression: Effusion of left knee, Inability to walk, Morbid obesity, Hypertension Prescriptions: No Action sertraline 50 mg tablet 1 tablet PO DAILY meloxicam 15 mg tablet 15 mg PO DAILY Patient Comments: TAKE 1 TABLET BY MOUTH DAILY simvastatin 10 mg tablet 10 mg PO QHS losartan 50 mg tablet 100 mg PO DAILY hydrochlorothiazide 25 mg tablet 25 mg PO DAILY Patient Comments: TAKE 1 TABLET DAILY fluticasone furoate-vilanterol [Breo Ellipta] 200-25 mcg/dose blister with device 2 inh inhalation DAILY Patient Comments: INHALE one puff DAILY. rinse mouth after each use albuterol sulfate 90 mcg/actuation HFA aerosol inhaler 90 gm inhalation DAILY PRN PRN (Reason: BRONCHOSPASMS) cholecalciferol (vitamin D3) 25 mcg (1,000 unit) capsule 25 mcg PO DAILY multivitamin [Daily Multi-Vitamin] Tablet 1 tab PO DAILY calcium citrate 200 mg (950 mg) tablet 200 mg PO BID potassium chloride 20 mEq Tablet,Er Particles/Crystals 20 meq PO DAILY montelukast 10 mg Tablet 10 mg PO QHS dextroamphetamine-amphetamine [Adderall] 20 mg Tablet 20 mg PO DAILY bupropion HCl 300 mg tablet extended release 24 hr 300 mg PO DAILY Primary Care Provider: Romero Lowry Referrals: Romero Lowry MD [Primary Care Provider] - Print Language: Sinhala
[2024-08-26 07:24] LABS: AUTO B FLUID DILUENT BKGD CT WBC <0.1 RBC <0.01 (W<.1,R<.01); Appearance /Synovial Fluid Cloudy (CLEAR); Color / Synovial Fluid Yellow (Pale Yellow); Source / Synovial Fluid KNEE; Source- Body Fluid SYNOVIAL
[2024-08-26 07:25] LABS: Lymph 5 %; Neutrophil 95 % (0-25); RBC /Synovial Fluid 62 /mm3 (0)
[2024-08-26 07:26] LABS: Body Fluid QC Type(s) BF1Q,BF2Q
[2024-08-26 07:31] LABS: CRYSTALS, BODY FLUID See PATH REV
--- NOTE | 2024-08-26 10:16 | CON.PCM_ITS ---
Assessment & Plan Assessment/Plan (1) Morbid obesity: (2) Left knee DJD: QUALIFIERS: Osteoarthritis type: primary Qualified Code(s): M 17.12 - Unilateral primary osteoarthritis, left knee (3) History of pseudogout: PLAN: Plan Patient does have moderate medial joint space narrowing on her x-ray with no acute findings. She does have a history of pseudogout which is likely the explanation of her hypersensitivity and severe pain here. She did have an aspiration in the emergency room which preliminary does not appear to be infected we are still waiting on Gram stain and cultures. At this point she can be weightbearing as tolerated encourage knee range of motion and I will follow her synovial fluid results , if follows negative then she can likely follow-up with her established orthopedic surgeon Dr. Zhang for possible knee injections as an outpatient. HPI Consult Data Date of Consult: 08/26/24 HPI Narrative HPI Narrative: DUSTIN CHANG, is a 74 morbidly obese female BMI 51.4 with a history of pseudogout who has had years of left knee pain with intermittent flares no prior surgery or injury to the left knee. With 1 week of increasing left knee pain worsened when she slipped out of her bed tweaking her knee did not fall onto the ground this was on 08/24/2024. She denies any fevers or chills or recent illnesses. She was seen in the emergency room and her knee was aspirated and sent for synovial fluid analysis which is not consistent with infection however Gram stain and cultures are pending. [facility] Medical History (Updated 08/26/24 @ 10:[address] Natanael Vitale, DO) Osteoporosis Wears dentures Depression Ambulates with cane ADHD Back pain Heartburn Former smoker Hypertension Shortness of breath on exertion Leg cramps History of edema Osteoarthritis High cholesterol High blood pressure Back problem Asthma Arthritis Seasonal allergies [place] Home Medications ?Medication ?Instructions ?Recorded ?Last Taken ?Type albuterol sulfate 90 mcg/actuation 90 gm inhalation DAILY PRN PRN 04/14/21 Unknown History aerosol inhaler BRONCHOSPASMS calcium citrate 200 mg PO BID 04/14/21 Unknown History cholecalciferol (vitamin D3) 25 25 mcg PO DAILY 04/14/21 Unknown History mcg (1,000 unit) capsule fluticasone furoate 200 2 inh inhalation DAILY 04/14/21 Unknown History mcg-vilanterol 25 mcg/dose inhalation powder (Breo Ellipta) hydrochlorothiazide 25 mg tablet 25 mg PO DAILY HTN 04/14/21 01/11/23 07:45 History losartan 50 mg tablet 100 mg PO DAILY HTN 04/14/21 01/11/23 07:45 History meloxicam 15 mg tablet 15 mg PO DAILY ARTHRITIS 04/14/21 Unknown History multivitamin (Daily Multi-Vitamin 1 tab PO DAILY SUPPLEMENT 04/14/21 Unknown History tablet) sertraline 50 mg tablet 1 tablet PO DAILY NERVES 04/14/21 Unknown History simvastatin 10 mg tablet 10 mg PO QHS HLD 04/14/21 Unknown History dextroamphetamine-amphetamine 20 20 mg PO DAILY 01/05/23 Unknown History mg tablet (Adderall) montelukast 10 mg tablet 10 mg PO QHS ALLERGIES 01/05/23 Unknown History potassium chloride 20 mEq 20 meq PO DAILY 01/05/23 Unknown History tablet,extended release(part/cryst) bupropion HCl 300 mg 24 hr tablet, 300 mg PO DAILY 08/26/24 Unknown History extended release Allergy/AdvReac Type Severity Reaction Status Date / Time cat dander Allergy Mild Laryngospas Verified 08/25/24 23:57 ms Family History (Reviewed 10/26/22 @ 13:27 by Bobbi Norwood BIOMEDICAL EQUIPMENT TECH, BIOMEDICAL EQUIPMENT TECH-C) Other CVA (cerebral vascular accident) Cancer Myocardial infarction Surgical History History of colonoscopy History of removal of cyst History of tubal ligation H/O total hysterectomy Total knee replacement status Previous back surgery Social History (Reviewed 10/26/22 @ 13:27 by Bobbi Norwood BIOMEDICAL EQUIPMENT TECH, BIOMEDICAL EQUIPMENT TECH-C) Smoking Status: Former smoker alcohol intake: current alcohol intake frequency: 0-2 drinks per day substance use type: does not use what type of physical activity do you participate in: none Physical Exam Const alert, oriented x3 and no apparent distress Extremity Extremity Narrative: Left knee there is no erythema cellulitis or abscess apparent or ecchymosis there is no collateral ligament instability she has an intact extensor mechanism she is morbidly obese with a large soft tissue envelope there is no calf tenderness or sign of DVT she does have a small joint effusion she is hypersensitive to light touch and she cannot range her knee without significant pain. Lab / Micro Data 08/26/24 03:00 08/26/24 03:00 Labs: Laboratory Results - last 24 hr 08/26/24 03:00: WBC 9.6, RBC 4.00 L, Hgb 11.4 L, Hct 35.5 L, MCV 88.8, MCH 28.5, MCHC 32.1, RDW Std Deviation 44.0 H, RDW Coeff of Emelyn 13.4, Plt Count 207, MPV 11.8, Immature Gran % (Auto) 0.400, Neut % (Auto) 73.4 H, Lymph % (Auto) 15.4 L, [place] % (Auto) 10.1 H, Eos % (Auto) 0.4, Baso % (Auto) 0.3, Absolute Neuts (auto) 7.0, Absolute Lymphs (auto) 1.48, Nucleated RBC % 0, ESR 46 H, Sodium 136, P otassium 3.3 L, Chloride 103, Carbon Dioxide 29.0, Anion Gap 5, BUN 11, Creatinine 0.78, Estim Creat Clear Calc 97.37, Est GFR (MDRD) Af Amer 93, Est GFR (MDRD) Non-Af 77, BUN/Creatinine Ratio 14.0, Glucose 103, Lactic Acid 0.7, Calcium 8.6, C-React Prot Ext Range 85.80 H 08/26/24 04:33: Fluid Source Cancelled, Fluid Color Cancelled, Fluid Appearance Cancelled, Fluid WBC Cancelled, Fluid RBC Cancelled, Fluid Tot Cell Count Cancelled, Fld Polynuclear WBCs # Cancelled, Fld Polynuclear WBCs % Cancelled, Fluid Mononuclear WBCs Cancelled, Fld Mononuclear WBCs % Cancelled, Fluid Neutrophils Cancelled, Fluid Lymphocytes Cancelled, Fluid Monocytes Cancelled, Fluid Plasma Cells Cancelled, Fluid Macrophages Cancelled, Fld Mesothelial Cells Cancelled, Fluid Other Cells Cancelled, Fluid Crystals See PATH REV, Fluid Crystal Source SYNOVIAL, Fl Crystal Path Review Will follow, Fl Pathologist Comment Cancelled, Fluid Comment 2 Cancelled, Synovial Source KNEE, Synovial Color Yellow, Synovial Appearance Cloudy, Synovial WBC 28.0290 H, Synovial RBC 62 H, Synovial Tot Cell Ct 28.0560 H, Synovial Neutrophils 95 H, Synovial Lymphocytes 5, Synovial Path Comment May follow Micro: Microbiology 08/26/24 04:33 Fluid - Synovial (joint) Gram Stain - Final Imaging Radiology Impression Ankle X-Ray 08/26/24 00:15 IMPRESSION: Suspected nondisplaced distal fibular fracture.. Electronically Signed: Kalyn Trinidad MD at 3:43 EST , Knee X-Ray 08/26/24 00:15 IMPRESSION: Joint effusion. No evidence of fracture. Electronically Signed: Kalyn Trinidad MD at 3:43 EST , Hip/Pelvis X-Ray 08/26/24 01:10 IMPRESSION: No evidence of fracture. Electronically Signed: Kalyn Trinidad MD at 3:43 EST ,
[2024-08-26] MEDS: Potassium Chloride Oral Tablet 20 MEQ 40 MEQ PO (11:03)
[2024-08-26] MEDS: Losartan Potassium 100 MG Tablet PO (11:04)
[2024-08-26] MEDS: buPROPion (XL) 300 MG TABLET.XL PO (11:04)
[2024-08-26] MEDS: hydroCHLOROthiazide 25 MG Tablet PO (11:04)
[2024-08-26] MEDS: Cholecalciferol (VIT D3) 25 MCG TABLET (1,000 UNITS) PO (11:04)
[2024-08-26] MEDS: Calcium Carbonate 500 MG Tablet PO ×2 (11:04→21:04)
[2024-08-26] MEDS: Sertraline 50 MG Tablet PO (11:04)
[2024-08-26] MEDS: Heparin Injection (Vial) 5,000 UNIT/ML VIAL 5000 UNIT SC ×2 (11:05→21:01)
[2024-08-26] MEDS: Ensure Plus High Protein 120 ML LIQUID PO ×2 (11:05→17:05)
[2024-08-26] MEDS: Nystatin Powder 15gm Bottle 1 APPLIC TOPICAL ×2 (11:09→21:02)
[2024-08-26] MEDS: Ipratropium/Albuterol Sulfate 3 ML AMPUL.NEB INHALATION ×2 (13:17→20:30)
[2024-08-26] MEDS: oxyCODONE 5 MG Tablet PO ×2 (14:06→21:07)
[2024-08-26] MEDS: Acetaminophen 325 MG Tablet 650 MG PO (14:07)
--- NOTE | 2024-08-26 14:10 | PCM.HP.STD ---
HPI - General General Date of Admission: 08/26/24 Date of Service: 08/26/24 Chief Complaint: Generalized weakness HPI Narrative DUSTIN CHANG, is a 74 F who presents to the emergency room at [facility] after the brought her in for evaluation due to generalized weakness. Patient's is unable to pick her up off the floor after she slid off her bed. She complained of left knee pain which had been going on for about a week, she denied any trauma to the area. Workup in the emergency room included x-rays of the left knee, hip, and pelvis as well as a left ankle. There was a question that there was a nondisplaced distal fibular fracture on the x-ray, knee x-ray showed no evidence of fracture, hip and pelvis x-ray showed no evidence of fracture. Labs were obtained, CBC was remarkable for hemoglobin of 11.4, chemistry panel was remarkable for a potassium of 3.3 and C-reactive protein was obtained which was elevated at 85.8. On examination of the left knee, the emergency room physician noted a possible left knee effusion, examination of the left ankle reveals some soft tissue swelling but was otherwise unremarkable. Patient's left knee was aspirated of approximately 70 cc of thin watery yellow straw-colored joint fluid. This was sent off for evaluation. Patient was placed into observation status as MedSurg status due to acute debility, she will be seen by PT and OT, she will also be seen by orthopedic surgery regarding her left knee effusion. Patient does have a history of pseudogout in the past. [facility] Medical History (Updated 08/26/24 @ 10:[address] Natanael Vitale, DO) Osteoporosis Wears dentures Depression Ambulates with cane ADHD Back pain Heartburn Former smoker Hypertension Shortness of breath on exertion Leg cramps History of edema Osteoarthritis High cholesterol High blood pressure Back problem Asthma Arthritis Seasonal allergies [place] Home Medications ?Medication ?Instructions ?Recorded ?Last Taken ?Type albuterol sulfate 90 mcg/actuation 90 gm inhalation DAILY PRN PRN 04/14/21 Unknown History aerosol inhaler BRONCHOSPASMS calcium citrate 200 mg PO BID 04/14/21 Unknown History cholecalciferol (vitamin D3) 25 25 mcg PO DAILY 04/14/21 Unknown History mcg (1,000 unit) capsule fluticasone furoate 200 2 inh inhalation DAILY 04/14/21 Unknown History mcg-vilanterol 25 mcg/dose inhalation powder (Breo Ellipta) hydrochlorothiazide 25 mg tablet 25 mg PO DAILY HTN 04/14/21 01/11/23 07:45 History losartan 50 mg tablet 100 mg PO DAILY HTN 04/14/21 01/11/23 07:45 History meloxicam 15 mg tablet 15 mg PO DAILY ARTHRITIS 04/14/21 Unknown History multivitamin (Daily Multi-Vitamin 1 tab PO DAILY SUPPLEMENT 04/14/21 Unknown History tablet) sertraline 50 mg tablet 1 tablet PO DAILY NERVES 04/14/21 Unknown History simvastatin 10 mg tablet 10 mg PO QHS HLD 04/14/21 Unknown History dextroamphetamine-amphetamine 20 20 mg PO DAILY 01/05/23 Unknown History mg tablet (Adderall) montelukast 10 mg tablet 10 mg PO QHS ALLERGIES 01/05/23 Unknown History potassium chloride 20 mEq 20 meq PO DAILY 01/05/23 Unknown History tablet,extended release(part/cryst) bupropion HCl 300 mg 24 hr tablet, 300 mg PO DAILY 08/26/24 Unknown History extended release Allergy/AdvReac Type Severity Reaction Status Date / Time cat dander Allergy Mild Laryngospas Verified 08/25/24 23:57 ms Family History Other CVA (cerebral vascular accident) Cancer Myocardial infarction Surgical History History of colonoscopy History of removal of cyst History of tubal ligation H/O total hysterectomy Total knee replacement status Previous back surgery Social History Smoking Status: Former smoker alcohol intake: current alcohol intake frequency: 0-2 drinks per day substance use type: does not use what type of physical activity do you participate in: none ROS Constitutional Constitutional: Reports fatigue and weakness; Denies anorexia, change in weight, chills, fever(s) or night sweats Eyes Eyes: Denies blurry vision, change in vision, discharge from eye(s) or eye pain Cardiovascular Cardiovascular: Denies chest pain, claudication, dyspnea on exertion, edema or palpitations Respiratory/Chest Respiratory/Chest: Denies cough, hemoptysis, shortness of breath at rest or shortness of breath with exertion Gastrointestinal Gastrointestinal: Denies abdominal pain, constipation, diarrhea, hematemesis, hematochezia, melena, nausea or vomiting Genitourinary Genitourinary: Denies dysuria, hematuria, urinary frequency, urinary hesitancy, urinary incontinence or urinary urgency Musculoskeletal Musculoskeletal: Reports arthralgias and joint pain; Denies back pain, joint stiffness, joint swelling, myalgias or neck pain Neurologic Neurologic: Denies abnormal gait, abnormal speech, dizziness, focal weakness, headache(s), loss of vision, numbness, other visual disturbances, paresthesias, syncope or tingling Psychiatric Psychiatric: Denies anxiety, cognitive impairment, depression, irritability, mood swings or suicidal ideation Endocrine Endocrinology: Denies change in body appearance, cold intolerance, excessive sweating, heat intolerance, polydipsia or polyuria Hematologic/Lymphatic Hematologic/Lymphatic: Denies none, anemia, easy bleeding, easy bruising or lymphadenopathy Allergic/Immunologic Allergic/Immunologic: Denies rhinitis, urticaria, eczemia or asthma Vital Signs Vital Signs Vital Signs: 08/25/24 23:57 08/25/24 23:57 08/26/24 03:56 Temperature 98.7 F Temperature Source Oral Pulse Rate 101 H 76 Pulse Strength Respiratory Rate 15 18 Respiratory Effort Normal Respiratory Depth Normal Respiratory Pattern Normal Blood Pressure 160/105 H Blood Pressure Mean 123 Blood Pressure Source Blood Pressure Position Blood Pressure Location Pulse Ox 97 99 Oxygen Delivery Method Room Air Room Air Room Air Oxygen Flow Rate (L/min) 96 08/26/24 07:00 08/26/24 07:50 08/26/24 10:13 Temperature 97.1 F L Temperature Source Pulse Rate 83 81 Pulse Strength Normal (2+) Respiratory Rate 14 19 H Respiratory Effort Respiratory Depth Respiratory Pattern Blood Pressure 134/99 H 153/76 H Blood Pressure Mean 110 101 Blood Pressure Source Blood Pressure Position Blood Pressure Location Pulse Ox 88 100 Oxygen Delivery Method Room Air Oxygen Flow Rate (L/min) 08/26/24 10:13 08/26/24 10:13 08/26/24 12:00 Temperature 98.4 F 99 F Temperature Source Oral Oral Pulse Rate 106 H 98 Pulse Strength Respiratory Rate 16 18 Respiratory Effort Normal Respiratory Depth Normal Respiratory Pattern Normal Blood Pressure 118/64 104/52 L Blood Pressure Mean 82 69 Blood Pressure Source Monitor Monitor Blood Pressure Position Semi-Fowlers Blood Pressure Location Right Arm Pulse Ox 100 100 Oxygen Delivery Method Room Air Room Air Room Air Oxygen Flow Rate (L/min) 08/26/24 13:19 Temperature Temperature Source Pulse Rate 101 H Pulse Strength Respiratory Rate 16 Respiratory Effort Respiratory Depth Respiratory Pattern Normal Blood Pressure Blood Pressure Mean Blood Pressure Source Blood Pressure Position Blood Pressure Location Pulse Ox Oxygen Delivery Method Oxygen Flow Rate (L/min) Weight Weight: 149 kg Body Mass Index (BMI) 51.4 Physical Exam Const alert, oriented x3 and no apparent distress Constitutional Narrative: Patient has class III obesity General Appearance: cooperative, well kempt and well developed Orientation / Consciousness: awake, oriented to person, oriented to place and oriented to time HEENT normocephalic, head/scalp atraumatic, hearing grossly normal bilaterally and moist oral mucous membranes Eyes PERRL, EOMs intact bilaterally and conjunctivae normal Neck supple, no JVD, thyroid normal and no carotid bruits General: trachea midline Resp normal respiratory effort, no retractions, no use of accessory muscles and clear to auscultation bilaterally Auscultation: Negative for rales, rhonchi or wheezes Cardio regular rate, regular rhythm, S1 normal heart sound, S2 normal heart sound, no murmurs, no rub and no gallops GI normal to inspection, nondistended, normoactive bowel sounds, soft to palpation, non-tender and non-distended Extremity Extremity Narrative: Patient has a deformity of her right ankle which appears to be chronic in nature, patient's left knee was wrapped with an Sunil wrap and was not inspected by this examiner Skin no rashes or lesions noted General Skin Exam: no breakdown Neuro oriented x3, CN's II-XII intact bilaterally, moves all extremities and no sensory deficits noted Neuro Narrative: Patient was not ambulated during my examination Sensorium / Orientation: awake and alert Speech: speech normal Psych affect normal Results Lab / Micro Data 08/26/24 03:00 08/26/24 03:00 Labs: Laboratory Results - last 24 hr 08/26/24 03:00: WBC 9.6, RBC 4.00 L, Hgb 11.4 L, Hct 35.5 L, MCV 88.8, MCH 28.5, MCHC 32.1, RDW Std Deviation 44.0 H, RDW Coeff of Emelyn 13.4, Plt Count 207, MPV 11.8, Immature Gran % (Auto) 0.400, Neut % (Auto) 73.4 H, Lymph % (Auto) 15.4 L, Swift % (Auto) 10.1 H, Eos % (Auto) 0.4, Baso % (Auto) 0.3, Absolute Neuts (auto) 7.0, Absolute Lymphs (auto) 1.48, Nucleated RBC % 0, ESR 46 H, Sodium 136, Potassium 3.3 L, Chloride 103, Carbon Dioxide 29.0, Anion Gap 5, BUN 11, Creatinine 0.78, Estim Creat Clear Calc 97.37, Est GFR (MDRD) Af Amer 93, Est GFR (MDRD) Non-Af 77, BUN/Creatinine Ratio 14.0, Glucose 103, Lactic Acid 0.7, Calcium 8.6, C-React Prot Ext Range 85.80 H 08/26/24 04:33: Fluid Source Cancelled, Fluid Color Cancelled, Fluid Appearance Cancelled, Fluid WBC Cancelled, Fluid RBC Cancelled, Fluid Tot Cell Count Cancelled, Fld Polynuclear WBCs # Cancelled, Fld Polynuclear WBCs % Cancelled, Fluid Mononuclear WBCs Cancelled, Fld Mononuclear WBCs % Cancelled, Fluid Neutrophils Cancelled, Fluid Lymphocytes Cancelled, Fluid Monocytes Cancelled, Fluid Plasma Cells Cancelled, Fluid Macrophages Cancelled, Fld Mesothelial Cells Cancelled, Fluid Other Cells Cancelled, Fluid Crystals See PATH REV, Fluid Crystal Source SYNOVIAL, Fl Crystal Path Review Will follow, Fl Pathologist Comment Cancelled, Fluid Comment 2 Cancelled, Synovial Source KNEE, Synovial Color Yellow, Synovial Appearance Cloudy, Synovial WBC 28.0290 H, Synovial RBC 62 H, Synovial Tot Cell Ct 28.0560 H, Synovial Neutrophils 95 H, Synovial Lymphocytes 5, Synovial Path Comment May follow Micro: Microbiology 08/26/24 04:33 Fluid - Synovial (joint) Gram Stain - Final Imaging Radiology Impression Ankle X-Ray 08/26/24 00:15 IMPRESSION: Suspected nondisplaced distal fibular fracture.. Electronically Signed: Kalyn Trinidad MD at 3:43 EST , Knee X-Ray 08/26/24 00:15 IMPRESSION: Joint effusion. No evidence of fracture. Electronically Signed: Kalyn Trinidad MD at 3:43 EST , Hip/Pelvis X-Ray 08/26/24 01:10 IMPRESSION: No evidence of fracture. Electronically Signed: Kalyn Trinidad MD at 3:43 EST , Assessment & Plan Assessment/Plan (1) History of pseudogout: PLAN: Plan 1. Acute on chronic debility-due to the fact the patient's cannot care for the patient and the patient cannot perform ADLs on her own, she will be placed in observation status as a MedSurg patient, she will be seen by PT and OT, she might require temporary placement in a penitentiary facility for inpatient rehab services. Patient will be seen by orthopedic surgery #2 left knee effusion-probably secondary to pseudogout versus OA-I have elected to place the patient on IV Decadron, again she will be seen by orthopedic surgery #3 class III obesity-complicates care, management, recovery, and prognosis #4 hypokalemia-patient will be given potassium replacement, BMP will be rechecked #5 essential hypertension-patient is on losartan #6 asthma-patient will be placed on Pulmicort aerosols and DuoNeb aerosols #7 hyperlipidemia-patient is on simvastatin #8 chronic depression-patient is on Zoloft Total clinical time spent by myself addressing the patient's medical issues, reviewing all of her data, and collaborating with patient's care team: 75 minutes Charges/Coding Visit Charges Inpatient E&M: 97995 Init Hosp L3
--- NOTE | 2024-08-26 15:19 | CASEMGMT ---
Discharge Planning A list of?SNF providers including quality and resource use data and consistent with the patient's preferred geographic region, medical needs, and insurance network was created in [employer] Guide.? This list was provided to the SW. Nidia Gleason Discharge Planning Asst.
--- NOTE | 2024-08-26 15:21 | CHAPLAIN ---
Type of Pastoral Visit _x__ Initial Visit ___ Follow-up Visit ___ On-call Visit ___ General Patient Visit ___ Spiritual Assessment ___ Family Conference ___ Bereavement ___ Rapid Response ___ Code Blue ___ Other (describe below) Pastoral Care Referral From _x__ Patient ___ Family ___ Nurse ___ Physician ___ Host Hostess ___ Energy Management Specialist ___ Other (describe below) Sacrament/Intervention _x__ Active listening ___ Anointing ___ Moravian ___ Bereavement ___ Communion ___ Alyx exploration ___ ___ Life review ___ Prayer ___ Reconciliation ___ Sacrament of Sick _x__ Supportive presence ___ Wedding ___ Other (describe below) Pastoral Comments patient and spouse both give description of their need for pt to come to the hospital; both state that they are waiting for test results and a plan about what is next; pt is offered supportive presence and prayer; pt denies any further need for intervention; casual conversation and a response of thankfulness for the visit
[2024-08-26] MEDS: Magnesium Citrate 300 ML PO (15:22)
--- NOTE | 2024-08-26 15:31 | CASEMGMT ---
Therapy is recommending patient go to a group home facility for rehab. SW met with patient. Introduced self and role at [facility]. SW explained therapy is recommending she go to a group home facility for rehab. Patient verbalized understanding. SW provided patient with a list of group home facility providers including quality and resource use data and consistent with patient?s preferred geographic region, medical needs, and insurance network were provided from the [employer] Guide. SW explained she needs to pick 3-4 preferences and SW will take care of contacting facilities. RENEE also told patient that SW is usually on the unit from 830 to 4 so if she has questions she is always welcome to ask for SW. Plan: SNF pending choices and accepting facilities. Jessika Lynch SQL ANALYST JAZMINE
[2024-08-26] MEDS: Budesonide Respules 0.5 MG/2 ML AMPUL.NEB. INHALATION (20:30)
[2024-08-26] MEDS: Atorvastatin Calcium 10 MG Tablet 5 MG PO (21:03)
[2024-08-26] MEDS: Montelukast 10 MG Tablet PO (21:03)
[2024-08-27] VITALS (8 sets, daily range): BP systolic 110–172; BP diastolic 45–95; PULSE 79–106; RESP 14–20; TEMP 36.1–36.9; O2SAT 94–96
[2024-08-27] MEDS: oxyCODONE 5 MG Tablet PO ×3 (02:00→13:04)
[2024-08-27] MEDS: Ipratropium/Albuterol Sulfate 3 ML AMPUL.NEB INHALATION ×2 (07:32→20:12)
[2024-08-27] MEDS: Budesonide Respules 0.5 MG/2 ML AMPUL.NEB. INHALATION ×2 (07:32→20:12)
[2024-08-27] MEDS: Nystatin Powder 15gm Bottle 1 APPLIC TOPICAL ×2 (08:38→21:03)
[2024-08-27] MEDS: buPROPion (XL) 300 MG TABLET.XL PO (08:38)
[2024-08-27] MEDS: Cholecalciferol (VIT D3) 25 MCG TABLET (1,000 UNITS) PO (08:38)
[2024-08-27] MEDS: Losartan Potassium 100 MG Tablet PO (08:38)
[2024-08-27] MEDS: Calcium Carbonate 500 MG Tablet PO ×2 (08:39→20:55)
[2024-08-27] MEDS: Heparin Injection (Vial) 5,000 UNIT/ML VIAL 5000 UNIT SC ×2 (08:39→20:54)
[2024-08-27] MEDS: hydroCHLOROthiazide 25 MG Tablet PO (08:39)
[2024-08-27] MEDS: Sertraline 50 MG Tablet PO (08:40)
[2024-08-27] MEDS: Acetaminophen 325 MG Tablet 650 MG PO (08:47)
[2024-08-27] MEDS: Ensure Plus High Protein 120 ML LIQUID PO ×3 (08:53→16:59)
--- NOTE | 2024-08-27 10:47 | CASEMGMT ---
SW met with patient. SW asked patient if she had a chance to review the list of facilities. Patient said she forgot about it. SW located the list and put it within reach for patient. SW told patient SW will check back. Jessika LUCERO
--- NOTE | 2024-08-27 11:21 | CASEMGMT ---
Met with patient to complete VALLE form. VALLE form explained to patient who voiced understanding and signed form. Original form placed in pt?s chart and copy provided to patient. Nidia Gleason, Discharge Planning Asst
--- NOTE | 2024-08-27 12:22 | PN.ORTHO_ITS ---
Subjective Subjective Seen and examined. Doing about the same afebrile no fevers chills. Complain of left knee pain Objective Data Objective Data Vital Signs: Vital Signs Temp Pulse Resp BP Pulse Ox O2 Del Method O2 Flow Rate 98.4 F 97 14 125/71 H 94 Room Air 2 08/27/24 08:35 08/27/24 08:35 08/27/24 08:35 08/27/24 08:35 08/27/24 08:35 08/27/24 08:45 08/26/24 21:00 Oxygen Flow Rate (L/min) 2 Oxygen Delivery Method Room Air Weight: 328 lb 7.82 oz Body Mass Index (BMI) 51.4 Intake & Output: Intake and Output for Last 24 Hours 08/25/24 08/26/24 08/27/24 23:59 23:59 23:59 Intake Total 0 / 0 800 / 1160 360 / 360 Output Total 250 / 250 Balance 0 / 0 800 / 910 110 / 110 Lab / Micro Data 08/26/24 03:00 08/26/24 03:00 Micro: Microbiology 08/26/24 04:33 Fluid - Synovial (joint) Gram Stain - Final 08/26/24 04:33 Fluid - Synovial (joint) Body Fluid Culture - Preliminary No growth-Final to follow Physical Exam Const alert, oriented x3 and no apparent distress Extremity Extremity Narrative: Left knee there is no erythema cellulitis or abscess apparent or ecchymosis there is no collateral ligament instability she has an intact extensor mechanism she is morbidly obese with a large soft tissue envelope there is no calf tenderness or sign of DVT she does have a small joint effusion she is hypersensitive to light touch and she cannot range her knee without significant pain. Assessment & Plan Assessment/Plan (1) Morbid obesity: (2) Left knee DJD: QUALIFIERS: Osteoarthritis type: primary Qualified Code(s): M 17.12 - Unilateral primary osteoarthritis, left knee (3) History of pseudogout: PLAN: Plan Patient remains afebrile no white blood cell count synovial fluid analysis not consistent with infection no organisms seen on Gram stain awaiting final cultures, crystal analysis still not posted. History of pseudogout. DJD on x- ray left knee. Morbid obesity. continue current care.
[2024-08-27] MEDS: 0.9% Saline Lock 10 ML Syringe IV ×2 (15:19→20:55)
[2024-08-27] MEDS: dexAMETHasone 4 MG/ML Vial IV ×2 (15:20→21:03)
--- NOTE | 2024-08-27 17:21 | NURSING ---
RETURNING PT TO BED FROM CHAIR W/ASSIST X2 AND GAIT BELT, AFTER MANY ATTEMPTS TO STAND AND THEN SHUFFLING HERSELF SLIGHTLY TOWARD THE BED, PT PROCEEDED TO LUNGE TOWARD THE BED ALMOST LANDING ON THE LOGISTICS OPERATIONS MANAGER ASSISTING W/THE TRANSFER. PT VERY APOLOGETIC BUT WAS REMINDED NOT TO DO THAT IN THE FUTURE D/T POSSIBLE INJURY TO HERSELF AND OR STAFF.
--- NOTE | 2024-08-27 19:09 | PN.HOSP_ITS ---
Reason for Visit Reason for Visit: Diagnoses Morbid (severe) obesity due to excess calories (08/26/24) Unilateral primary osteoarthritis, left knee (08/26/24) Personal history of other diseases of the musculoskeletal system and connective tissue (08/26/24) Subjective Subjective Patient was seen and examined today, I asked the patient if she would consider going to a skilled care facility for inpatient rehab services and she stated that she would have to check with her but she feels that she may have to do this. Objective Data Objective Data Vital Signs: Vital Signs Temp Pulse Resp BP Pulse Ox O2 Del Method O2 Flow Rate 97.7 F L 79 17 110/45 L 96 Room Air 2 08/27/24 14:00 08/27/24 14:00 08/27/24 14:00 08/27/24 14:00 08/27/24 15:18 08/27/24 14:00 08/26/24 21:00 Oxygen Flow Rate (L/min) 2 Oxygen Delivery Method Room Air Weight: 149 kg Body Mass Index (BMI) 51.4 Intake & Output: Intake and Output for Last 24 Hours 08/25/24 08/26/24 08/27/24 23:59 23:59 23:59 Intake Total 0 / 0 800 / 1160 360 / 360 Output Total 650 / 650 Balance 0 / 0 800 / 910 -290 / -290 Lab / Micro Data 08/26/24 03:00 08/26/24 03:00 Micro: Microbiology 08/26/24 04:33 Fluid - Synovial (joint) Gram Stain - Final 08/26/24 04:33 Fluid - Synovial (joint) Body Fluid Culture - Preliminary No growth-Final to follow Physical Exam Narrative alert, oriented x3 and no apparent distress Constitutional Narrative: Patient has class III obesity General Appearance: cooperative, well kempt and well developed Orientation / Consciousness: awake, oriented to person, oriented to place and oriented to time HEENT normocephalic, head/scalp atraumatic, hearing grossly normal bilaterally and moist oral mucous membranes Eyes PERRL, EOMs intact bilaterally and conjunctivae normal Neck supple, no JVD, thyroid normal and no carotid bruits General: trachea midline Resp normal respiratory effort, no retractions, no use of accessory muscles and clear to auscultation bilaterally Auscultation: Negative for rales, rhonchi or wheezes Cardio regular rate, regular rhythm, S1 normal heart sound, S2 normal heart sound, no murmurs, no rub and no gallops GI normal to inspection, nondistended, normoactive bowel sounds, soft to palpation, non-tender and non-distended Extremity Extremity Narrative: Patient has a deformity of her right ankle which appears to be chronic in nature, patient's left knee was wrapped with an Sunil wrap and was not inspected by this examiner Skin no rashes or lesions noted General Skin Exam: no breakdown Neuro oriented x3, CN's II-XII intact bilaterally, moves all extremities and no sensory deficits noted Neuro Narrative: Patient was not ambulated during my examination Sensorium / Orientation: awake and alert Speech: speech normal Psych affect normal Assessment & Plan Assessment/Plan (1) Inability to walk: (2) History of pseudogout: PLAN: Plan 1. Acute on chronic debility-continue PT and OT, patient will consider going to a halfway facility for inpatient rehab, I have placed her on IV Decadron today to see if this improves her mobility #2 left knee effusion-probably secondary to pseudogout versus OA-I have elected to place the patient on IV Decadron, patient is being seen by orthopedic surgery #3 class III obesity-complicates care, management, recovery, and prognosis #4 hypokalemia-patient will be given potassium replacement, BMP will be rechecked #5 essential hypertension-patient is on losartan #6 asthma-continue aerosol treatments #7 hyperlipidemia-patient is on simvastatin #8 chronic depression-patient is on Zoloft Total clinical time spent by myself addressing the patient's medical issues, reviewing all of her data, and collaborating with patient's care team: 35 minutes Charges/Coding Visit Charges Inpatient E&M: 98259 Subs Hosp L2
[2024-08-27] MEDS: Atorvastatin Calcium 10 MG Tablet 5 MG PO (20:54)
[2024-08-27] MEDS: Montelukast 10 MG Tablet PO (20:55)
[2024-08-28] VITALS (9 sets, daily range): BP systolic 112–149; BP diastolic 70–105; PULSE 84–97; RESP 16–20; TEMP 36.4–36.8; O2SAT 92–98
[2024-08-28] MEDS: dexAMETHasone 4 MG/ML Vial IV ×3 (06:36→21:59)
[2024-08-28] MEDS: 0.9% Saline Lock 10 ML Syringe IV ×2 (06:37→22:03)
[2024-08-28] MEDS: Ipratropium/Albuterol Sulfate 3 ML AMPUL.NEB INHALATION ×3 (07:31→19:55)
[2024-08-28] MEDS: Budesonide Respules 0.5 MG/2 ML AMPUL.NEB. INHALATION ×2 (07:31→19:55)
[2024-08-28] MEDS: buPROPion (XL) 300 MG TABLET.XL PO (08:13)
[2024-08-28] MEDS: Nystatin Powder 15gm Bottle 1 APPLIC TOPICAL ×2 (08:13→21:59)
[2024-08-28] MEDS: Sertraline 50 MG Tablet PO (08:13)
[2024-08-28] MEDS: Cholecalciferol (VIT D3) 25 MCG TABLET (1,000 UNITS) PO (08:13)
[2024-08-28] MEDS: Ensure Plus High Protein 120 ML LIQUID PO ×2 (08:14→11:42)
[2024-08-28] MEDS: Calcium Carbonate 500 MG Tablet PO ×2 (08:14→22:00)
[2024-08-28] MEDS: hydroCHLOROthiazide 25 MG Tablet PO (08:14)
[2024-08-28] MEDS: Losartan Potassium 100 MG Tablet PO (08:14)
[2024-08-28] MEDS: Heparin Injection (Vial) 5,000 UNIT/ML VIAL 5000 UNIT SC ×2 (08:14→21:59)
--- NOTE | 2024-08-28 08:50 | CASEMGMT ---
SW spoke with patient and asked if she has chosen any facilities. Patient said she has not. Patient said her is coming in around 2p. SW asked patient if she could work on getting a facility before then as SW needs to get this process started. Patient said she will call her and go over the list with him. SW will check back. Plan: d/c to SNF pending choices, accepting facility, and insurance approval. Jessika Lynch CABLE ASSEMBLERMassiel LUCERO
--- NOTE | 2024-08-28 11:25 | CASEMGMT ---
SW spoke with patient to see if she has chosen any facilities. Patient's two choices would be [facility] and then [facility]. SW asked Nidia to please send a referral to [facility]. Jessika LUCERO
--- NOTE | 2024-08-28 12:05 | CASEMGMT ---
Addendum entered by Nidia Gleason 08/28/24 15:59: [facility] has accepted and will submit for precert. Nidia Gleason DC Planning Asst. Addendum entered by Nidia Gleason 08/28/24 15:10: [facility] declined d/t no beds. Referral sent to [facility] at [place]. Nidia Gleason DC Planning Asst. Addendum entered by Nidia Gleason 08/28/24 13:50: [facility] declined. New referral sent to [facility]. Nidia Gleason DC Planning Asst. Original Note: Referral sent to [facility]. Nidia Gleason DC Planning Asst.
--- NOTE | 2024-08-28 13:40 | CASEMGMT ---
[facility] has declined patient as they are stating they are out of network. SW asked Nidia to please send a referral to [facility], patient's second choice. Jessika Lynch DIRECTOR DENTAL SERVICES DECATING MACHINE OPERATOR
--- NOTE | 2024-08-28 15:04 | CASEMGMT ---
RENEE met with patient and let her know [facility] said they are out of network and [facility] is full. Patient reviewed the list and her next choices would be [facility] and then [facility] ([facility]). RENEE asked Nidia to send a referral to [facility]. Plan: SNF pending accepting facility and insurance approval. Jessika LUCERO
--- NOTE | 2024-08-28 15:59 | CASEMGMT ---
RENEE notified patient and her that [facility] can accept patient. RENEE explained patient will stay here until insurance approves her. Plan: d/c to [facility] pending insurance approval. Jessika LUCERO
--- NOTE | 2024-08-28 19:35 | PN.HOSP_ITS ---
Reason for Visit Reason for Visit: Diagnoses Morbid (severe) obesity due to excess calories (08/26/24) Unilateral primary osteoarthritis, left knee (08/26/24) Difficulty in walking, not elsewhere classified (08/26/24) Personal history of other diseases of the musculoskeletal system and connective tissue (08/26/24) Subjective Subjective Patient was seen and examined today, she states she feels much better since she has been on IV Decadron. The plan is for the patient to go to an extended care facility at the present time, this may change if the patient is able to ambulate better tomorrow. Objective Data Objective Data Vital Signs: Vital Signs Temp Pulse Resp BP Pulse Ox O2 Del Method O2 Flow Rate 98.3 F 94 18 112/92 H 95 Room Air 92 08/28/24 14:08/28/24 14:08/28/24 14:08/28/24 14:08/28/24 14:08/28/24 14:08/28/24 09:10 Oxygen Flow Rate (L/min) 92 Oxygen Delivery Method Room Air Weight: 149 kg Body Mass Index (BMI) 51.4 Intake & Output: Intake and Output for Last 24 Hours 08/26/24 08/27/24 08/28/24 23:59 23:59 23:59 Intake Total 800 / 1160 360 / 360 1000 / 1000 Output Total 1100 / 1100 200 / 200 Balance 800 / 910 -740 / -740 800 / 800 Lab / Micro Data 08/26/24 03:00 08/26/24 03:00 Labs: Laboratory Results - last 24 hr 08/26/24 04:33: Fl Crystal Path Review Reviewed Micro: Microbiology 08/26/24 04:33 Fluid - Synovial (joint) Gram Stain - Final 08/26/24 04:33 Fluid - Synovial (joint) Body Fluid Culture - Preliminary No growth-Final to follow 08/26/24 04:33 Fluid - Synovial (joint) Anaerobic Culture - Preliminary No growth in 48 hours. Physical Exam Narrative alert, oriented x3 and no apparent distress Constitutional Narrative: Patient has class III obesity General Appearance: cooperative, well kempt and well developed Orientation / Consciousness: awake, oriented to person, oriented to place and oriented to time HEENT normocephalic, head/scalp atraumatic, hearing grossly normal bilaterally and moist oral mucous membranes Eyes PERRL, EOMs intact bilaterally and conjunctivae normal Neck supple, no JVD, thyroid normal and no carotid bruits General: trachea midline Resp normal respiratory effort, no retractions, no use of accessory muscles and clear to auscultation bilaterally Auscultation: Negative for rales, rhonchi or wheezes Cardio regular rate, regular rhythm, S1 normal heart sound, S2 normal heart sound, no murmurs, no rub and no gallops GI normal to inspection, nondistended, normoactive bowel sounds, soft to palpation, non-tender and non-distended Extremity Extremity Narrative: Patient has a deformity of her right ankle which appears to be chronic in nature, patient's left knee was wrapped with an Sunil wrap and was not inspected by this examiner Skin no rashes or lesions noted General Skin Exam: no breakdown Neuro oriented x3, CN's II-XII intact bilaterally, moves all extremities and no sensory deficits noted Neuro Narrative: Patient was not ambulated during my examination Sensorium / Orientation: awake and alert Speech: speech normal Psych affect normal Assessment & Plan Assessment/Plan (1) Inability to walk: (2) History of pseudogout: PLAN: Plan 1. Acute on chronic debility-continue PT and OT, patient will consider going to a correction facility for inpatient rehab, patient continues on IV Decadron at this time #2 left knee effusion-probably secondary to pseudogout versus OA-patient remains on IV Decadron at this time #3 class III obesity-complicates care, management, recovery, and prognosis #4 hypokalemia-patient will be given potassium replacement, BMP will be rechecked #5 essential hypertension-patient is on losartan #6 asthma-continue aerosol treatments #7 hyperlipidemia-patient is on simvastatin #8 chronic depression-patient is on Zoloft Total clinical time spent by myself addressing the patient's medical issues, reviewing all of her data, and collaborating with patient's care team: 35 minutes Charges/Coding Visit Charges Inpatient E&M: 01153 Subs Hosp L2
[2024-08-28] MEDS: Atorvastatin Calcium 10 MG Tablet 5 MG PO (21:59)
[2024-08-28] MEDS: Montelukast 10 MG Tablet PO (22:00)
[2024-08-29] VITALS (19 sets, daily range): BP systolic 111–145; BP diastolic 65–108; PULSE 82–101; RESP 15–21; TEMP 35.7–36.8; O2SAT 92–99; BMI 51.4
[2024-08-29] MEDS: dexAMETHasone 4 MG/ML Vial IV ×2 (04:16→14:25)
[2024-08-29] MEDS: Ipratropium/Albuterol Sulfate 3 ML AMPUL.NEB INHALATION ×3 (07:26→23:16)
[2024-08-29] MEDS: Budesonide Respules 0.5 MG/2 ML AMPUL.NEB. INHALATION ×2 (07:26→23:16)
[2024-08-29] MEDS: Ensure Plus High Protein 120 ML LIQUID PO ×2 (08:12→11:17)
[2024-08-29] MEDS: Cholecalciferol (VIT D3) 25 MCG TABLET (1,000 UNITS) PO (08:13)
[2024-08-29] MEDS: Calcium Carbonate 500 MG Tablet PO ×2 (08:13→23:40)
[2024-08-29] MEDS: Losartan Potassium 100 MG Tablet PO (08:13)
[2024-08-29] MEDS: Heparin Injection (Vial) 5,000 UNIT/ML VIAL 5000 UNIT SC (08:13)
[2024-08-29] MEDS: Sertraline 50 MG Tablet PO (08:13)
[2024-08-29] MEDS: buPROPion (XL) 300 MG TABLET.XL PO (08:13)
[2024-08-29] MEDS: hydroCHLOROthiazide 25 MG Tablet PO (08:13)
[2024-08-29] MEDS: Nystatin Powder 15gm Bottle 1 APPLIC TOPICAL ×2 (08:14→23:40)
[2024-08-29 09:56] LABS: Pathologist Review Reviewed
--- NOTE | 2024-08-29 10:03 | CASEMGMT ---
Patient was approved to go to [facility]. Per physician patient is going to decide if she wants to go home or to a skilled nursing now. PT/OT will see patient today and SW will follow up with patient. Jessika LUCERO
--- NOTE | 2024-08-29 13:49 | CASEMGMT ---
SW spoke with patient and PT was in the room. Patient did really well with therapy and would be fine for home. SW mentioned home health vs outpatient. Patient wanted to think about it. SW notified physician of patient's decision. SW also notified RN CM. Once patient is leaving [facility] will notify [facility]. Jessika Lynch MEDICAL ASSISTANT PER DIEM JAZMINE
[2024-08-29] MEDS: 0.9% Saline Lock 10 ML Syringe IV ×2 (14:29→19:53)
--- NOTE | 2024-08-29 15:14 | DCINST_ITS ---
Discharge Instructions Diet Discharge Diet: No restrictions Dressing / Incision Discharge Activity: Return to Normal Activity Weight Bearing Status: Full weight bearing Follow Up Care Test Results: Test results from this visit will be discussed in further detail at your follow- up appointment, if applicable. Discharge Plan Admission Admit Date/Time: 08/26/24 07:51 Primary Reason for Your Visit: General debility Attending Provider: Wilton Luna Primary Care Provider: Romero Lowry Consulting Providers: Natanael Vitale Discharge Orders/Prescriptions Prescriptions: No Action sertraline 50 mg tablet 1 tablet PO DAILY meloxicam 15 mg tablet 15 mg PO DAILY Patient Comments: TAKE 1 TABLET BY MOUTH DAILY simvastatin 10 mg tablet 10 mg PO QHS losartan 50 mg tablet 100 mg PO DAILY hydrochlorothiazide 25 mg tablet 25 mg PO DAILY Patient Comments: TAKE 1 TABLET DAILY fluticasone furoate-vilanterol [Breo Ellipta] 200-25 mcg/dose blister with device 2 inh inhalation DAILY Patient Comments: INHALE one puff DAILY. rinse mouth after each use albuterol sulfate 90 mcg/actuation HFA aerosol inhaler 90 gm inhalation DAILY PRN PRN (Reason: BRONCHOSPASMS) cholecalciferol (vitamin D3) 25 mcg (1,000 unit) capsule 25 mcg PO DAILY multivitamin [Daily Multi-Vitamin] Tablet 1 tab PO DAILY calcium citrate 200 mg (950 mg) tablet 200 mg PO BID potassium chloride 20 mEq Tablet,Er Particles/Crystals 20 meq PO DAILY montelukast 10 mg Tablet 10 mg PO QHS dextroamphetamine-amphetamine [Adderall] 20 mg Tablet 20 mg PO DAILY bupropion HCl 300 mg tablet extended release 24 hr 300 mg PO DAILY Referrals / Follow Up: Romero Lowry MD [Primary Care Provider] -
--- NOTE | 2024-08-29 15:33 | CASEMGMT ---
ALEXANDRA WOODARD updated that patient will be discharging home now after doing well with therapy. ALEXANDRA WOODARD in to discuss HHC vs outpatient therapy. Patient called and is agreeable to outpatient therapy. Patient prefers to attend outpatient therapy at discharge. ALEXANDRA WOODARD updated by hospitalist that discharge is cancelled and patient will have washout completed with surgery and will be here through the weekend. ALEXANDRA WOODARD updated patient and . CM will continue to follow this patient and plan for a safe discharge.
--- NOTE | 2024-08-29 15:51 | PCM.PN.HOSP ---
Reason for Visit Reason for Visit: Diagnoses Morbid (severe) obesity due to excess calories (08/26/24) Unilateral primary osteoarthritis, left knee (08/26/24) Difficulty in walking, not elsewhere classified (08/26/24) Personal history of other diseases of the musculoskeletal system and connective tissue (08/26/24) Subjective Subjective Patient was seen and examined today, I was ready to discharge her home when I saw that her synovial fluid culture grew out coag negative staph, I contacted the orthopedic surgery and I talked briefly with infectious diseases by phone, factious diseases recommended the patient be placed on antibiotics, orthopedic surgery would like to a washout today, I went over this with the patient and her who is in the room this afternoon. Objective Data Objective Data Vital Signs: Vital Signs Temp Pulse Resp BP Pulse Ox O2 Del Method O2 Flow Rate 98.2 F 101 H 15 124/65 H 94 Room Air 2 08/29/24 14:00 08/29/24 14:00 08/29/24 14:00 08/29/24 14:00 08/29/24 14:00 08/29/24 14:00 08/29/24 08:53 Oxygen Flow Rate (L/min) 2 Oxygen Delivery Method Room Air Weight: 149 kg Body Mass Index (BMI) 51.4 Intake & Output: Intake and Output for Last 24 Hours 08/27/24 08/28/24 08/29/24 23:59 23:59 23:59 Intake Total 360 / 360 1000 / 1000 250 / 250 Output Total 1100 / 1100 200 / 200 Balance -740 / -740 800 / 800 250 / 250 Lab / Micro Data 08/26/24 03:00 08/26/24 03:00 Labs: Laboratory Results - last 24 hr 08/26/24 04:33: Fl Crystal Path Review Reviewed Micro: Microbiology 08/26/24 04:33 Fluid - Synovial (joint) Gram Stain - Final 08/26/24 04:33 Fluid - Synovial (joint) Body Fluid Culture - Preliminary Coag Negative Staph 08/26/24 04:33 Fluid - Synovial (joint) Anaerobic Culture - Preliminary No growth in 48 hours. Physical Exam Narrative alert, oriented x3 and no apparent distress Constitutional Narrative: Patient has class III obesity General Appearance: cooperative, well kempt and well developed Orientation / Consciousness: awake, oriented to person, oriented to place and oriented to time HEENT normocephalic, head/scalp atraumatic, hearing grossly normal bilaterally and moist oral mucous membranes Eyes PERRL, EOMs intact bilaterally and conjunctivae normal Neck supple, no JVD, thyroid normal and no carotid bruits General: trachea midline Resp normal respiratory effort, no retractions, no use of accessory muscles and clear to auscultation bilaterally Auscultation: Negative for rales, rhonchi or wheezes Cardio regular rate, regular rhythm, S1 normal heart sound, S2 normal heart sound, no murmurs, no rub and no gallops GI normal to inspection, nondistended, normoactive bowel sounds, soft to palpation, non-tender and non-distended Extremity Extremity Narrative: Patient has a deformity of her right ankle which appears to be chronic in nature, patient's left knee was wrapped with an Sunil wrap and was not inspected by this examiner Skin no rashes or lesions noted General Skin Exam: no breakdown Neuro oriented x3, CN's II-XII intact bilaterally, moves all extremities and no sensory deficits noted Neuro Narrative: Patient was not ambulated during my examination Sensorium / Orientation: awake and alert Speech: speech normal Psych affect normal Assessment & Plan Assessment/Plan (1) Effusion of left knee: (2) Inability to walk: (3) History of pseudogout: PLAN: Plan 1. Acute on chronic debility-continue PT and OT, patient will consider going to a [place] [facility] facility for inpatient rehab, patient continues on IV Decadron at this time #2 left knee effusion-with cultures positive (preliminary) for coag negative staph-patient will undergo washout of her left knee today, orthopedic surgery will place her on vancomycin and infectious diseases will see her on Sunday. #3 class III obesity-complicates care, management, recovery, and prognosis #4 hypokalemia-patient will be given potassium replacement, BMP will be rechecked #5 essential hypertension-patient is on losartan #6 asthma-continue aerosol treatments #7 hyperlipidemia-patient is on simvastatin #8 chronic depression-patient is on Zoloft Total clinical time spent by myself addressing the patient's medical issues, reviewing all of her data, and collaborating with patient's care team: 35 minutes Charges/Coding Visit Charges Inpatient E&M: 24374 Subs Hosp L2
--- NOTE | 2024-08-29 18:36 | PN.ORTHO_ITS ---
Subjective Subjective Patient actually feeling much better she is moving her knee and has been ambulating, she is afebrile and no elevated synovial WBC. Objective Data Objective Data Vital Signs: Vital Signs Temp Pulse Resp BP Pulse Ox O2 Del Method O2 Flow Rate 98.2 F 101 H 15 124/65 H 94 Room Air 2 08/29/24 14:00 08/29/24 14:00 08/29/24 14:00 08/29/24 14:00 08/29/24 14:00 08/29/24 14:00 08/29/24 08:53 Oxygen Flow Rate (L/min) 2 Oxygen Delivery Method Room Air Weight: 328 lb 7.82 oz Body Mass Index (BMI) 51.4 Intake & Output: Intake and Output for Last 24 Hours 08/27/24 08/28/24 08/29/24 23:59 23:59 23:59 Intake Total 360 / 360 1000 / 1000 250 / 250 Output Total 1100 / 1100 200 / 200 Balance -740 / -740 800 / 800 250 / 250 Lab / Micro Data 08/26/24 03:00 08/26/24 03:00 Labs: Laboratory Results - last 24 hr 08/26/24 04:33: Fl Crystal Path Review Reviewed Micro: Microbiology 08/26/24 04:33 Fluid - Synovial (joint) Gram Stain - Final 08/26/24 04:33 Fluid - Synovial (joint) Body Fluid Culture - Preliminary Coag Negative Staph 08/26/24 04:33 Fluid - Synovial (joint) Anaerobic Culture - Preliminary No growth in 48 hours. Physical Exam Const alert, oriented x3 and no apparent distress General Appearance: cooperative Extremity Extremity Narrative: Left knee range of motion is much improved no significant joint effusion today Assessment & Plan Assessment/Plan (1) History of pseudogout: (2) Left knee DJD: QUALIFIERS: Osteoarthritis type: primary Qualified Code(s): M 17.12 - Unilateral primary osteoarthritis, left knee (3) Septic arthritis of knee: QUALIFIERS: Laterality: left Septic arthritis organism: s taphylococcal Qualified Code(s): M00.062 - Staphylococcal arthritis, left knee PLAN: Plan I explained to the patient that upon final culture results of the aspirate of her left knee coagulase-negative staph was grown explained to her this is likely a contaminant as this is a common skin kimberly and considering she has improved as she has however her crystal analysis was negative inspite of having history of pseudogout therefore we cannot know for sure it was a contaminate and therefore recommend arthroscopic washout of her knee and antibiotics. She does wish for this course of care. informed consent given risk/benefits reviewed.
--- NOTE | 2024-08-29 19:46 | PRE.ANES_ITS ---
ASA Classification* ASA Classification ASA Classification: 3 Assessment & Plan Anesthesia* Anesthesia Assessment Anesthesia Assessment: Discussed sedation and/or anesthesia options, risks, benefits, and alternatives with patient/parents/legal guardian/POA. Questions invited. The patient/parents/legal guardian/POA seems to understand and agrees to proceed with anesthesia plan. Reviewed the physical assessment, medical history, allergy history and patient home medications list prior to surgery/procedure/anesthetic and documented any changes. Performed airway and anesthesia risk assessments. Anesthesia Type Anesthesia Type: General Anesthesia Focused Assessment* Temperature: 98.2 F Pulse Rate: 101 Blood Pressure: 124/65 Respiratory Rate: 15 Pulse Ox: 94 Oxygen Flow Rate (L/min): 2 Airway Assessment Mouth opens: >3 cm Mallampati Score: II Focused Labs Anesthesia Preop lab: CBC WBC 9.6 K/mm3 (4.4-11.0) 08/26/24 03:00 08/26/24 RBC 4.00 M/mm3 (4.2-5.4) L 08/26/24 03:00 08/26/24 Hgb 11.4 g/dL (12.0-15.0) L 08/26/24 03:00 5 Hct 35.5 % (37-47) L 08/26/24 03:00 08/26/24 Plt Count 207 K/mm3 (150-450) 08/26/24 03:00 08/26/24 CHEMISTRY Potassium 3.3 mmol/L (3.5-5.1) L 08/26/24 03:00 08/26/24 Sodium 136 mmol/L (136-145) 08/26/24 03:00 08/26/24 BUN 11 mg/dL (7-18) 08/26/24 03:00 08/26/24 Creatinine 0.78 mg/dL (0.55-1.02) 08/26/24 03:00 08/26/24 Glucose 103 mg/dL (74-106) 08/26/24 03:00 08/26/24 TSH 2.070 uIU/mL (0.358-3.740) 05/21/24 10:34 04/30 10/20 COAG Pre-Assessment Diagnosis/Proposed Procedure Planned Operative Procedure(s): I&D Knee Anesthesia History 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 When Was Last Pacemaker Check QUESTION #4 FULL TEXT: You/Your Family Experience fever (hyperthermia) with Anesthesia Last Oral Intake Last Oral intake: Last Oral Intake NPO since Meds taken in AM with sips of water? Meds patient instructed to take am of surgery PONV PONV - floral designer salesperson: PONV - floral designer salesperson Female HX of Motion Sickness HX of N/V After Surgery Non-Smoker Duration of Surgery greater than 60 minutes Number of Risk Factors PONV Score Height & Weight Height & Weight: Anesthesia: Height & Weight Height 5 ft 7 in 08/26/24 16:43 Weight: 149 kg 08/26/24 16:43 Body Mass Index (BMI) 51.4 08/26/24 09:12 Respiratory Assessment Respiratory Assessment - floral designer salesperson: Respiratory Tract Infection Hx - floral designer salesperson Hx Respiratory Tract Infection No 01/05/23 14:51 STOP Sleep Apnea STOP Sleep Apnea - floral designer salesperson: STOP Sleep Apnea - floral designer salesperson Hx Hypertension Yes: PER PT, CONTROLLED ON 08/27/24 15:18 MEDS Hx Sleep Apnea Yes 08/26/24 09:12 CPAP No: RETURNED CPAP, CAN'T 08/26/24 09:12 TOLERATE BIPAP No 08/26/24 09:12 Do you snore loudly (louder than talking or can be heard Do you often feel tired/ fatigued/ sleepy during daytime? Has anyone observed you stop breathing during sleep? STOP Results Positive 08/26/24 09:12 QUESTION #5 FULL TEXT : Do you snore loudly (louder than talking or can be heard through closed doors)? Tobacco Use History Tobacco Use History - floral designer salesperson: Tobacco Use History - floral designer salesperson Tobacco Use Smoking Status Former smoker 08/26/24 09:12 Hx Tobacco Use No 08/26/24 09:12 Years Smoking Packs Smoked per Day Smoking Cessation Date was Yes - quit smoking within 15 08/26/24 09:12 within the last 15 years years Hx Smoking Cessation Date Hx Smoking Cessation Counseling Hematologic Medial History Hematologic Hx - floral designer salesperson: Hematologic Medical Hx - keno dealer Hx of Blood Transfusion No 08/26/24 09:12 Hx of Transfusion in last 3 No 08/26/24 09:12 Months Date of Last Transfusion (if within last 3 months) Ever experience any problems No 08/26/24 09:12 with transfusion(s)? Specify any problems Hx of Preganancy in last 3 N/A 08/26/24 09:12 Months Nurse Filling Out Transfusion TWOLF 08/26/24 09:12 & Questions: Date: 08/26/24 08/26/24 09:12 Time: 09:15 08/26/24 09:12 Patient unable to answer at this time (ie. confused, unrespo /Reproduction History /Reproductive History - floral designer salesperson: /Reproductive Hx- floral designer salesperson Hx Now Gestational Age (in weeks): EDC: Hx Hx Para Hx Section SAB Active Medications Active Medications: Current Medications Generic Name Dose Route Start Last Admin Trade Name Freq PRN Reason Stop Dose Admin Acetaminophen 650 mg 08/26/24 09:10 08/27/24 08:47 Acetaminophen 325 Mg Tablet PO 650 mg Q6H PRN PRN Administration Pain 1-10 Or Fever >100.7 Albuterol Sulfate 2.5 mg 08/26/24 09:10 Albuterol 2.5 Mg/3 Ml Vial.Neb. INHALATION Q2H PRN PRN DYSPNEA Albuterol/Ipratropium 3 ml 08/26/24 09:10 08/29/24 13:37 Ipratropium/Albuterol Sulfate 3 Ml Ampul.Neb INHALATION 3 ml Q6HWA.RT TUNG Administration Atorvastatin Calcium 5 mg 08/26/24 22:00 08/28/24 21:59 Atorvastatin Calcium 10 Mg Tablet PO 5 mg QHS TUNG Administration Budesonide 0.5 mg 08/26/24 09:10 08/29/24 07:26 Budesonide Respules 0.5 Mg/2 Ml Ampul.Neb. INHALATION 0.5 mg BID.RT TUNG Administration Bupropion HCl 300 mg 08/26/24 10:00 08/29/24 08:13 Bupropion (Xl) 300 Mg Tablet.Xl PO 300 mg DAILY TUNG Administration Calcium Carbonate 500 mg 08/26/24 10:00 08/29/24 08:13 Calcium Carbonate 500 Mg Tablet PO 500 mg BID TUNG Administration Cholecalciferol 25 mcg 08/26/24 10:00 08/29/24 08:13 Cholecalciferol (Vit D3) 25 Mcg Tablet (1,000 Units) PO 25 mcg DAILY TUNG Administration Heparin Sodium (Porcine) 5,000 unit 08/26/24 10:00 08/29/24 08:13 Heparin Injection (Vial) 5,000 Unit/Ml Vial SC 5,000 unit Q12 TUNG Administration Hydrochlorothiazide 25 mg 08/26/24 10:00 08/29/24 08:13 Hydrochlorothiazide 25 Mg Tablet PO 25 mg DAILY TUNG Administration Protocol Sodium Chloride 100 mls @ 15 mls/hr 08/26/24 09:21 IV .Q6H40M PRN Saline Flush Sodium Chloride 100 mls @ 15 mls/hr 08/26/24 09:21 IV .Q6H40M PRN Additional IVPB Infusion Losartan Potassium 100 mg 08/26/24 10:00 08/29/24 08:13 Losartan Potassium 100 Mg Tablet PO 100 mg DAILY TUNG Administration Protocol Montelukast Sodium 10 mg 08/26/24 22:00 08/28/24 22:00 Montelukast 10 Mg Tablet PO 10 mg QHS TUNG Administration Nutritional Formula (Lactose Free) 120 ml 08/26/24 12:00 08/29/24 16:40 Ensure Plus High Protein 120 Ml Liquid PO Not Given [facility] Nystatin 1 applic 08/26/24 10:00 08/29/24 08:14 Nystatin Powder 15gm Bottle TOPICAL 1 applic BID TUNG Administration Protocol Ondansetron HCl 4 mg 08/26/24 09:10 Ondansetron 4 Mg/2 Ml Vial IV Q8H PRN PRN NAUSEA/VOMITING Oxycodone HCl 5 mg 08/26/24 09:10 08/27/24 13:04 Oxycodone 5 Mg Tablet PO 5 mg Q4H PRN PRN Administration Pain Score 4-10 Sertraline HCl 50 mg 08/26/24 10:00 08/29/24 08:13 Sertraline 50 Mg Tablet PO 50 mg DAILY TUNG Administration Sodium Chloride 10 - 40 ml 08/26/24 09:21 08/29/24 14:29 0.9% Saline Lock 10 Ml Syringe IV 10 ml UD PRN Administration SALINE FLUSH [facility] Medical History Osteoporosis Wears dentures Depression Ambulates with cane ADHD Back pain Heartburn Former smoker Hypertension Shortness of breath on exertion Leg cramps History of edema Osteoarthritis High cholesterol High blood pressure Back problem Asthma Arthritis Seasonal allergies [place] Home Medications ?Medication ?Instructions ?Recorded ?Last Taken ?Type albuterol sulfate 90 mcg/actuation 90 gm inhalation DA ANGUS PRN PRN 04/14/21 Unknown History aerosol inhaler BRONCHOSPASMS calcium citrate 200 mg PO BID 04/14/21 Unkno wn History cholecalciferol (vitamin D3) 25 25 mcg PO DAILY Unknown History mcg (1,000 unit) capsule fluticasone furoate 200 2 inh inhalation DAILY 04/14 Unknown History mcg-vilanterol 25 mcg/dose inhalation powder (Breo Ellipta) hydrochlorothiazide 25 mg tablet 25 mg PO DAILY HTN 01/11/23 07:45 History losartan 50 mg tablet 100 mg PO DAILY HTN 04/14/21 01/11/23 07:45 History meloxicam 15 mg tablet 15 mg PO DAILY ARTHRITIS Unknown History multivitamin (Daily Multi-Vitamin 1 tab PO DAILY SUPPL EMENT 04/14/21 Unknown History tablet) sertraline 50 mg tablet 1 tablet PO DAILY NERVES 0 04/14/21 Unknown History simvastatin 10 mg tablet 10 mg PO QHS HLD 04/14/21 Un known History dextroamphetamine-amphetamine 20 20 mg PO DAILY Unknown History mg tablet (Adderall) montelukast 10 mg tablet 10 mg PO QHS ALLERGIES 01/05 Unknown History potassium chloride 20 mEq 20 meq PO DAILY 01/05/23 Unk nown History tablet,extended release(part/cryst) bupropion HCl 300 mg 24 hr tablet, 300 mg PO DAILY Unknown History extended release Allergy/AdvReac Type Severity Reaction Status Date / Time cat dander Allergy Mild Laryngospas Verified 08/25/24 23:57 ms Family History Other CVA (cerebral vascular accident) Cancer Myocardial infarction Surgical History History of colonoscopy History of removal of cyst History of tubal ligation H/O total hysterectomy Total knee replacement status Previous back surgery Social History Smoking Status: Former smoker alcohol intake: current alcohol intake frequency: 0-2 drinks per day substance use type: does not use what type of physical activity do you participate in: none Review of Systems (Anesthesia) ROS Narrative System reviewed and no additional complaints, except as documented.
[2024-08-29 21:53] LABS: Body Fluid QC Type(s) BFQ2; Source- Body Fluid SYNOVIAL
[2024-08-29] MEDS: Bupiv/Epi 0.25% 30 ML Vial (22:00)
[2024-08-29 22:11] LABS: CRYSTALS, BODY FLUID NO CRYSTALS SEEN
--- NOTE | 2024-08-29 22:15 | PCM.OPRPT ---
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 Type of Anesthesia: Spinal RN Documented Start/Stop Times: Operation Date: 08/29/24 17:20 Case Time Anesthesia Start 08/29/24 21:19 Into Room 08/29/24 21:19 Procedure Start 08/29/24 21:41 Procedure End 08/29/24 22:09 Anesthesia End 08/29/24 22:14 Out of Room 08/29/24 22:14 Procedure Start Time: 21:41 Procedure Stop Time: 22:09 Select all DRAINS/GRAFTS/IMPLANTS that apply: None Estimated Blood Loss: 5 Specimen collected: Yes Description of specimen(s) removed: Culture fluid synovial and crystal analysis Description of surgery: Preop diagnosis: Left knee DJD, history of pseudogout, concern for septic arthritis Postoperative diagnosis: [Same] Procedure: Arthroscopic washout left knee Anesthesia: Spinal Estimated blood loss: [5] mL Tourniquet time: [20] minutes 300 mmHg Complications: none Specimens :synovial fluid culture and crystal analysis Indication for procedure: 74-year-old female patient morbidly obese history of pseudogout had increasing pain over the past week in her knee inability ambulate at first she was seen in the emergency room department where x-rays were taken there is no acute injury she did have an aspirate which was inflammatory no crystals were seen no organisms however upon final cultures there was coagulase-negative Staphylococcus. She did respond to steroids and was doing actually fairly well however with concern of septic arthritis and thorough discussion with the patient we felt it was prudent to go ahead and washout the joint arthroscopically. Risk benefits and alternatives of the procedure were reviewed including risk of bleeding infection nerve artery tissue damage need for further surgery continued pain and expected postoperative course. Procedure: The patient was met in the preoperative holding area. The operative extremity was identified by both patient and physician and family and marked. Patient was brought back to the operating room on a wheeled cart and transferred to the operating table in the supine position. Anesthesia was started. A well-padded tourniquet was placed on the operative extremity. A lower extremity leg traylor was secured to the operative extremity. The contralateral extremity was well-padded and the end of the bed was flexed to 90 degrees. The patient was prepped and draped in the usual sterile fashion. A timeout was called to ensure the proper patient, procedure, and extremity were being contemplated. 0.5% Marcaine with epinephrine was injected into the planned incisional areas under the skin only. the tourniquet was inflated. A 30 cc syringe was used to aspirate slightly cloudy synovial fluid and this was sent for culture and crystal analysis . an 11 blade scalpel was used to make a stab incision in the anterior lateral portal. The arthroscope was inserted into the intercondylar notch and inflow and outflow tubes were attached. Arthroscopic visualization began. The medial compartment was entered. An 18-gauge spinal needle was used to establish the placement for anterior medial portal. An 11 blade scalpel was used to make a stab incision. Blunt probe was inserted followed by a meniscal probe. [Immediately there is no to be high-grade cartilage wear of the medial compartment with an area of grade 4 the remainder the compartment was grade 3 cartilage wear] The ACL was [found to be intact]. Of note throughout the knee there was deposits of a crystalline like structure consistent with pseudogout this was in the soft tissues as well as the cartilage . the lateral compartment was entered and there was a partial discoid lateral meniscus there is also cartilage wear it but not to the same degree as the medial side The medial and lateral gutters were inspected and [were free of loose bodies however there was crystalline deposits and synovitis]. The patellofemoral joint was inspected grade 3 cartilage wear. [There was good patellar tracking.] The knee was thoroughly irrigated and drained. . The arthroscope was removed the portals were closed with 3-0 nylon arthroscopic stitches. Followed by Xeroform 4 x 4's ABDs web roll and an Sunil wrap. The tourniquet was let down and the drapes were removed. All counts were correct. The patient was brought back to the PACU in stable condition. Surgical Findings: Synovitis and crystalline deposition consistent with pseudogout Complications Complications: No
--- NOTE | 2024-08-29 22:20 | PCM.POST.ANE ---
Anesthesia: Postop Eval I Current Vital Signs Temperature: 97.3 F Pulse Rate: 93 Blood Pressure: 117/65 Respiratory Rate: 19 Pulse Ox: 98 Assessment Airway patent: Yes Spontaneous unlabored respirations: Yes nausea: No Vomiting: No Anesthesia Complication: No Fluid Hydration Crystalloid volume administer (ml): 1,000 Total IV fluid infused: 1,000 Progress Note Anesthesia document: Postop Eval 1 completed: Yes
--- NOTE | 2024-08-29 22:22 | POSTOPAN2_ITS ---
Anesthesia Postop Eval I Sum Postop Eval Completion status Anesthesia document: Postop Eval 1 completed: Yes Anesthesia Postop Eval I Summary Anesthesia Postop Eval I Summary: Anesthesia Postop Eval I: Assessment Summary Airway patent Yes 08/29/24 22:20 [employer] [email or web address] Spontaneous unlabored Yes 08/29/24 22:20 [employer] [email or web address] respirations Mental status nausea No 08/29/24 22:20 [employer] [email or web address] Vomiting No 08/29/24 22:20 [employer] LA[employer] [email or web address] Anesthesia Postop Eval I: Fluid Summary Crystalloid volume administer 1,000 08/29/24 22:20 [employer] [email or web address] (ml) Colloids volume administered ( ml) Blood Product volume administered (ml) Total IV fluid infused 1,000 08/29/24 22:20 [employer] LA[employer] [email or web address] Anesthesia Postop Eval I: Summary Notes Anesthesia Complication No 08/29/24 22:20 [employer] LA[employer] [email or web address] Anesthesia Complication Comment: Post-operative progress note Anesthesia: Postop Eval II Evaluation Mental status: Awake Pain Level: 0 nausea: No Vomiting: No
--- NOTE | 2024-08-29 22:22 | PCM.POSTANE2 ---
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 Spontaneous unlabored Yes 08/29/24 22:20 COMPANY TANKER TRUCK DRIVER.[email or web address] respirations Mental status nausea No 08/29/24 22:20 COMPANY TANKER TRUCK DRIVER.[email or web address] Vomiting No 08/29/24 22:20 COMPANY TANKER TRUCK DRIVER.[email or web address] Anesthesia Postop Eval I: Fluid Summary Crystalloid volume administer 1,000 08/29/24 22:20 COMPANY TANKER TRUCK DRIVER.[email or web address] (ml) Colloids volume administered ( ml) Blood Product volume administered (ml) Total IV fluid infused 1,000 08/29/24 22:20 COMPANY TANKER TRUCK DRIVER.[email or web address] Anesthesia Postop Eval I: Summary Notes Anesthesia Complication No 08/29/24 22:20 COMPANY TANKER TRUCK DRIVER.[email or web address] Anesthesia Complication Comment: Post-operative progress note Anesthesia: Postop Eval II Evaluation Mental status: Awake Pain Level: 0 nausea: No Vomiting: No
--- NOTE | 2024-08-29 22:23 | PN.ORTHO_ITS ---
Subjective Subjective Seen and examined doing well comfortable pain controlled Objective Data Objective Data Vital Signs: Vital Signs Temp Pulse Resp BP Pulse Ox O2 Del Method O2 Flow Rate 97.3 F L 93 19 H 117/65 98 Room Air 2 08/29/24 22:20 08/29/24 22:20 08/29/24 22:20 08/29/24 22:20 08/29/24 22:20 08/29/24 20:05 08/29/24 19:47 Oxygen Flow Rate (L/min) 2 Oxygen Delivery Method Room Air Weight: 328 lb 7.82 oz Body Mass Index (BMI) 51.4 Intake & Output: Intake and Output for Last 24 Hours 08/27/24 08/28/24 08/29/24 23:59 23:59 23:59 Intake Total 360 / 360 1000 / 1000 250 / 250 Output Total 1100 / 1100 200 / 200 Balance -740 / -740 800 / 800 250 / 250 Lab / Micro Data 08/26/24 03:00 08/26/24 03:00 Labs: Laboratory Results - last 24 hr 08/26/24 04:33: Fl Crystal Path Review Reviewed 08/29/24 : Fluid Crystals NO CRYSTALS SEEN, Fluid Crystal Source SYNOVIAL, Fl Crystal Path Review Will follow Micro: Microbiology 08/26/24 04:33 Fluid - Synovial (joint) Gram Stain - Final 08/26/24 04:33 Fluid - Synovial (joint) Body Fluid Culture - Preliminary Coag Negative Staph 08/26/24 04:33 Fluid - Synovial (joint) Anaerobic Culture - Preliminary No growth in 48 hours. Physical Exam Const alert, oriented x3 and no apparent distress General Appearance: cooperative Extremity Extremity Narrative: Left knee dressing clean dry intact compartment soft Assessment & Plan Assessment/Plan (1) Septic arthritis of knee: QUALIFIERS: Septic arthritis organism: staphylococcal Laterality: left Qualified Code(s): M00.062 - Staphylococcal arthritis, left knee (2) History of pseudogout: (3) Left knee DJD: QUALIFIERS: Osteoarthritis type: primary Qualified Code(s): M 17.12 - Unilateral primary osteoarthritis, left knee (4) Morbid obesity: PLAN: Plan Status post left knee arthroscopic washout for concern for septic arthritis Intraoperative fluid cultures taken as well as crystal analysis sent Started postoperative vancomycin per request of infectious disease they can manage from this point forward PT OT weightbearing as tolerated encourage knee range of motion and gait training Dressing should be undisturbed for 72 hours postop and may be removed and cleaned daily and changed daily at that point Patient should follow-up in the office in 2 weeks for wound check and suture removal
[2024-08-29] MEDS: Vancomycin HCl 2,000 MG in 0.9% Normal Saline (500mL Bag) 500 ML 250 MG IV (23:15)
--- NOTE | 2024-08-29 23:28 | PCM.RX.CS ---
Consult Antibiotic Management Pharmacy has been consulted to manage selected antibiotic: Vancomycin Type of Intervention Type of Consult: New start Labs Labs: Sodium 136 mmol/L (136-145) 08/26/24 03:00 Potassium 3.3 mmol/L (3.5-5.1) L 08/26/24 03:00 Chloride 103 mmol/L (98-107) 08/26/24 03:00 Carbon Dioxide 29.0 mmol/L (21.0-32.0) 08/26/24 03:00 Anion Gap 5 (5-15) 08/26/24 03:00 BUN 11 mg/dL (7-18) 08/26/24 03:00 Creatinine 0.78 mg/dL (0.55-1.02) 08/26/24 03:00 Est GFR (MDRD) Af Amer 93 mL/min (>60) 08/26/24 03:00 Est GFR (MDRD) Non-Af 77 mL/min (>60) 08/26/24 03:00 BUN/Creatinine Ratio 14.0 RATIO (10-20) 08/26/24 03:00 Glucose 103 mg/dL (74-106) 08/26/24 03:00 Microbiology Microbiology: Microbiology 08/26/24 04:33 Fluid - Synovial (joint) Gram Stain - Final 08/26/24 04:33 Fluid - Synovial (joint) Body Fluid Culture - Preliminary Coag Negative Staph 08/26/24 04:33 Fluid - Synovial (joint) Anaerobic Culture - Preliminary No growth in 48 hours. Dosing Weight Weight used for dosin kg Estimated Creatinine Clearance Estimated Creatinine Clearance: 97 Goal Trough Goal Trough: 15-20 mcg/mL Pharmacy Plan for Drug Dosing Pharmacy Plan for Drug Dosing: Pharmacy Service will continue to monitor and adjust dosing as required. Follow-Up Labs Follow-Up Labs: Trough: Vancomycin Date/Time Labs Ordered Labs to be done on [date and time ordered]: 08/30/24 @7284
[2024-08-29] MEDS: Montelukast 10 MG Tablet PO (23:40)
[2024-08-29] MEDS: Atorvastatin Calcium 10 MG Tablet 5 MG PO (23:40)
[2024-08-30] VITALS (12 sets, daily range): BP systolic 106–158; BP diastolic 59–114; PULSE 69–104; RESP 16–18; TEMP 35.7–36.6; O2SAT 94–100; BMI 51.4
[2024-08-30] MEDS: Vancomycin HCl 1,250 MG in 0.9% Normal Saline (250mL Bag) 250 ML 167 MG IV (06:29)
[2024-08-30] MEDS: Budesonide Respules 0.5 MG/2 ML AMPUL.NEB. INHALATION (08:06)
[2024-08-30] MEDS: Ipratropium/Albuterol Sulfate 3 ML AMPUL.NEB INHALATION ×2 (08:06→13:14)
[2024-08-30] MEDS: Cholecalciferol (VIT D3) 25 MCG TABLET (1,000 UNITS) PO (09:08)
[2024-08-30] MEDS: Ensure Plus High Protein 120 ML LIQUID PO ×2 (09:08→12:29)
[2024-08-30] MEDS: Calcium Carbonate 500 MG Tablet PO (09:08)
[2024-08-30] MEDS: hydroCHLOROthiazide 25 MG Tablet PO (09:08)
[2024-08-30] MEDS: Sertraline 50 MG Tablet PO (09:08)
[2024-08-30] MEDS: buPROPion (XL) 300 MG TABLET.XL PO (09:08)
[2024-08-30] MEDS: Losartan Potassium 100 MG Tablet PO (09:08)
[2024-08-30] MEDS: Nystatin Powder 15gm Bottle 1 APPLIC TOPICAL (09:10)
--- NOTE | 2024-08-30 10:26 | PN.ORTHO_ITS ---
Subjective Subjective Seen and examined. Doing okay pain controlled no fevers chills or complaints Objective Data Objective Data Vital Signs: Vital Signs Temp Pulse Resp BP Pulse Ox O2 Del Method O2 Flow Rate 96.3 F L 93 18 153/114 H 99 Room Air 2 08/30/24 09:10 08/30/24 09:10 08/30/24 09:10 08/30/24 09:10 08/30/24 09:10 08/30/24 09:10 08/29/24 19:47 Oxygen Flow Rate (L/min) 2 Oxygen Delivery Method Room Air Weight: 328 lb 7.82 oz Body Mass Index (BMI) 51.4 Intake & Output: Intake and Output for Last 24 Hours 08/28/24 08/29/24 08/30/24 23:59 23:59 23:59 Intake Total 1000 / 1000 1250 / 1250 1265 / 1265 Output Total 200 / 200 100 / 100 Balance 800 / 800 1250 / 1250 1165 / 1165 Lab / Micro Data 08/26/24 03:00 08/26/24 03:00 Labs: Laboratory Results - last 24 hr 08/26/24 04:33: Fl Crystal Path Review Reviewed 08/29/24 : Fluid Crystals NO CRYSTALS SEEN, Fluid Crystal Source SYNOVIAL, Fl Crystal Path Review Will follow Micro: Microbiology 08/26/24 04:33 Fluid - Synovial (joint) Gram Stain - Final 08/26/24 04:33 Fluid - Synovial (joint) Body Fluid Culture - Preliminary Staphylococcus capitis 08/26/24 04:33 Fluid - Synovial (joint) Anaerobic Culture - Preliminary No growth in 48 hours. Physical Exam Const alert, oriented x3 and no apparent distress General Appearance: cooperative Extremity Extremity Narrative: Left knee dressing clean dry intact compartment soft neurovascular intact EHL tibialis anterior gastrocsoleus intact sensation light touch 2 out of 4 pedal pulse Assessment & Plan Assessment/Plan (1) Septic arthritis of knee: QUALIFIERS: Septic arthritis organism: staphylococcal Laterality: left Qualified Code(s): M00.062 - Staphylococcal arthritis, left knee (2) History of pseudogout: (3) Left knee DJD: QUALIFIERS: Osteoarthritis type: primary Qualified Code(s): M 17.12 - Unilateral primary osteoarthritis, left knee PLAN: Plan Postop day #1 left knee arthroscopic washout Intraoperative fluid synovial fluid culture taken Started on vancomycin postoperatively ; antibiotics to manage per primary or infectious disease PT OT weightbearing as tolerated Patient has been up and ambulatory this morning Encourage knee range of motion Dressing to be undisturbed until Sunday then should be removed and incision should be cleaned daily with antibacterial soap and warm water. She may begin showering on Sunday if she likes Follow-up in the office 2 weeks
[2024-08-30 12:16] LABS: Creatinine, Serum 1.09 mg/dL (0.55-1.02); EST Glomerular Filtration Rate 52 mL/min (>60); Est Glom Filt Rate - Afr Amer 63 mL/min (>60); Estimated Creatinine Clearance 70.07 ml/min
--- NOTE | 2024-08-30 12:16 | DCINST_ITS ---
Discharge Instructions Diet Discharge Diet: No restrictions DC O2, CPAP, BIPAP needs Home O2 Discharge instructions: No Dressing / Incision Discharge Activity: Return to Normal Activity Weight Bearing Status: Full weight bearing Dressing / Incision Call your doctor if your incision/area has: - (Do not remove dressing from left knee for 3 days) Follow Up Care Test Results: Test results from this visit will be discussed in further detail at your follow- up appointment, if applicable. Discharge Plan Admission Admit Date/Time: 08/26/24 07:51 Primary Reason for Your Visit: General debility, left knee infection Attending Provider: Wilton Luna Primary Care Provider: Romero Lowry Consulting Providers: Natanael Vitale Discharge Orders/Prescriptions Prescriptions: New doxycycline monohydrate 100 mg tablet 100 mg PO BID Qty: 28 0RF hydrocodone-acetaminophen 5-325 mg tablet 1 tab PO Q6H PRN (Reason: pain) 7 Days Qty: 28 0RF Continued sertraline 50 mg tablet 1 tablet PO DAILY meloxicam 15 mg tablet 15 mg PO DAILY Patient Comments: TAKE 1 TABLET BY MOUTH DAILY simvastatin 10 mg tablet 10 mg PO QHS losartan 50 mg tablet 100 mg PO DAILY hydrochlorothiazide 25 mg tablet 25 mg PO DAILY Patient Comments: TAKE 1 TABLET DAILY fluticasone furoate-vilanterol [Breo Ellipta] 200-25 mcg/dose blister with device 2 inh inhalation DAILY Patient Comments: INHALE one puff DAILY. rinse mouth after each use albuterol sulfate 90 mcg/actuation HFA aerosol inhaler 90 gm inhalation DAILY PRN PRN (Reason: BRONCHOSPASMS) cholecalciferol (vitamin D3) 25 mcg (1,000 unit) capsule 25 mcg PO DAILY multivitamin [Daily Multi-Vitamin] Tablet 1 tab PO DAILY calcium citrate 200 mg (950 mg) tablet 200 mg PO BID potassium chloride 20 mEq Tablet,Er Particles/Crystals 20 meq PO DAILY montelukast 10 mg Tablet 10 mg PO QHS dextroamphetamine-amphetamine [Adderall] 20 mg Tablet 20 mg PO DAILY bupropion HCl 300 mg tablet extended release 24 hr 300 mg PO DAILY Referrals / Follow Up: Romero Lowry MD [Primary Care Provider] - In 1 Week Natanael Vitale DO [Med Staff - Active Staff] - See Referral Note (in two weeks- call for appointment) Disposition Disposition (needs filled in before D/C Order can be placed): Home, Self Care
--- NOTE | 2024-08-30 12:21 | DS.PCM_ITS ---
Providers Date of Admission: 08/26/24 Date of Discharge: 08/30/24 Primary Care Physician: Dr. Romero Lowry MD Consultations 08/26/24 09:10 Consult: Orthopedics Routine Consulting Provider: Natanael Vitale Reason for Consult: left knee effusion EMERGENT Consult: No MD Notified: Yes Date Notified: 08/26/24 Time Notified: 07:57 Method of Notification: Verbal Reason For Visit: DEBILITY Diagnosis Discharge Diagnosis (1) Septic arthritis of knee: Status: Acute Code(s): M00.9 - Pyogenic arthritis, unspecified Qualifiers: Laterality: left Septic arthritis organism: staphylococcal Qualified Code(s): M00.062 - Staphylococcal arthritis, left knee (2) History of pseudogout: Status: Acute Code(s): Z87.39 - Personal history of other diseases of the musculoskeletal system and connective tissue (3) Left knee DJD: Status: Acute Code(s): M17.12 - Unilateral primary osteoarthritis, left knee Qualifiers: Osteoarthritis type: primary Qualified Code(s): M17.12 - Unilateral primary osteoarthritis, left knee Plan 1. Acute on chronic debility-continue PT and OT #2 Septic left knee effusion-with cultures positive (preliminary) for coag negative staph-Staphylococcus capitis #3 class III obesity-complicates care, management, recovery, and prognosis #4 hypokalemia-patient will be given potassium replacement, BMP will be rechecked #5 essential hypertension-patient is on losartan #6 asthma-continue aerosol treatments #7 hyperlipidemia-patient is on simvastatin #8 chronic depression-patient is on Zoloft Total clinical time spent by myself addressing the patient's medical issues, reviewing all of her data, and collaborating with patient's care team: 35 minutes Medications at Discharge Home Medications albuterol sulfate 90 mcg/actuation aerosol inhaler 90 gm inhalation DAILY PRN PRN BRONCHOSPASMS 04/14/21 calcium citrate 200 mg PO BID 04/14/21 cholecalciferol (vitamin D3) 25 mcg (1,000 unit) capsule 25 mcg PO DAILY 04/14/21 fluticasone furoate 200 mcg-vilanterol 25 mcg/dose inhalation powder (Breo Ellipta) 2 inh inhalation DAILY 04/14/21 hydrochlorothiazide 25 mg tablet 25 mg PO DAILY HTN 04/14/21 losartan 50 mg tablet 100 mg PO DAILY HTN 04/14/21 meloxicam 15 mg tablet 15 mg PO DAILY ARTHRITIS 04/14/21 multivitamin (Daily Multi-Vitamin tablet) 1 tab PO DAILY SUPPLEMENT 04/14/21 sertraline 50 mg tablet 1 tablet PO DAILY NERVES 04/14/21 simvastatin 10 mg tablet 10 mg PO QHS HLD 04/14/21 dextroamphetamine-amphetamine 20 mg tablet (Adderall) 20 mg PO DAILY 01/05/23 montelukast 10 mg tablet 10 mg PO QHS ALLERGIES 01/05/23 potassium chloride 20 mEq tablet,extended release(part/cryst) 20 meq PO DAILY 01/05/23 bupropion HCl 300 mg 24 hr tablet, extended release 300 mg PO DAILY 08/26/24 doxycycline monohydrate 100 mg tablet 100 mg PO BID #28 tabs 08/30/24 hydrocodone-acetaminophen 5-325mg 5mg-325mg 1 tab PO Q6H PRN pain 1 week #28 tabs 08/30/24 Hospital Course Operations None Procedures - (Arthrocentesis, washout of left knee) Summary of Care Provided Minutes Spent on Discharge: 31 Hospital Course: This 74-year-old white female was seen in the emergency room at [facility] with complaints of generalized weakness and inability to perform ADLs at home, brought her in for evaluation stated he was not able to care for at home because of her weakened state. Workup in the emergency room revealed the patient to have a left knee effusion, this was drained and sent for analysis and showed a large amount of white cells, no crystals are visible however. Patient was admitted to PCU and seen by PT and OT, she was placed on IV corticosteroids for relief of inflammation. Initially it was felt that the patient would have to go to an extended care facility for short-term inpatient services but she improved during her hospitalization. Her culture of her left knee fluid however grew out staph capitis, patient was taken for washout of her left knee and cultures were sent and the patient was then placed on IV vancomycin. The Staph capitis however could be a skin contaminant and since the patient was doing well the next day it was felt that she could be discharged on oral antibiotics with follow-up to orthopedics. Patient agreed with this approach. On 08/30/2024, patient was seen and examined: On examination she appeared in good health and spirits, she does not appear to be in any distress. Vital signs as documented. Skin warm and dry and without overt rashes. Neck without JVD, thyroid appears normal, trachea is midline, neck is supple. Lungs clear, normal air movement was noted. Heart exam notable for regular rhythm, normal sounds and absence of murmurs, rubs or gallops. Abdomen unremarkable and without evidence of organomegaly, masses, or abdominal aortic enlargement, bowel sounds are present in all 4 quadrants, no abdominal tenderness was noted. Extremities nonedematous, no cyanosis was noted, no clubbing was noted. Neuro: Cranial nerves II through XII are grossly intact, no focal motor deficits were noted, sensation to light touch and pinprick is intact, motor exam 5/5 throughout. Psych: Patient is alert and oriented x3, she does not appear anxious or depressed, she does not appear agitated. Patient appears stable for discharge home on 08/30/2024. Weight / BMI Weight Weight: 149 kg Body Mass Index (BMI) 51.4 ABG / Lab / Microbiology Data 08/26/24 03:00 08/30/24 11:38 Laboratory: Laboratory Results - last 24 hr 08/29/24 : Fluid Crystals NO CRYSTALS SEEN, Fluid Crystal Source SYNOVIAL, Fl Crystal Path Review Will follow 08/30/24 11:38: Creatinine 1.09 H, Estim Creat Clear Calc 70.07, Est GFR (MDRD) Af Amer 63, Est GFR (MDRD) Non-Af 52 L Microbiology: Microbiology 08/26/24 04:33 Fluid - Synovial (joint) Gram Stain - Final 08/26/24 04:33 Fluid - Synovial (joint) Body Fluid Culture - Final Staphylococcus capitis 08/26/24 04:33 Fluid - Synovial (joint) Anaerobic Culture - Preliminary Checking for anaerobes, further studies to follow. 08/29/24 Unknown Aspirate - Knee Gram Stain - Final 08/29/24 Unknown Aspirate - Knee Wound Culture - Preliminary No growth-Final to follow D/C Instructions Discharge Diet: No restrictions Weight Bearing Status: Full weight bearing Call your doctor if your incision/area has: - (Do not remove dressing from left knee for 3 days) DC O2, CPAP, BIPAP Needs Home O2 Discharge instructions: No Meaningful Use Info Meaningful Use Meaningful Use Diagnoses (Choose all that apply): None applicable Ischemic Stroke Statin Dosing Therapy Reference: STATIN DOSE THERAPY REFERENCE: * Patients > 75 years receive moderate or high dose statin therapy. * Patients 75 years or YOUNGER should receive HIGH intensity statin dose unless contraindicated. You will be required to document reason for non-treatment if statin daily dose does not meet guidelines. HIGH DOSE STATIN THERAPY DAILY Atorvastatin > than or = to 40 mg Rosuvastatin > than or = to 20 mg Amlodipine + Atorvastatin > than or = to 2.5/40 mg Ezetimibe + Simvastatin 10/80 mg Simvastatin 80mg Discharge Plan Admission Admit Date/Time: 08/26/24 07:51 Primary Reason for Your Visit: General debility, left knee infection Attending Provider: Wilton Luna Primary Care Provider: Romero Lowry Consulting Providers: Natanael Vitale Discharge Orders/Prescriptions Prescriptions: New doxycycline monohydrate 100 mg tablet 100 mg PO BID Qty: 28 0RF hydrocodone-acetaminophen 5-325 mg tablet 1 tab PO Q6H PRN (Reason: pain) 7 Days Qty: 28 0RF Continued sertraline 50 mg tablet 1 tablet PO DAILY meloxicam 15 mg tablet 15 mg PO DAILY Patient Comments: TAKE 1 TABLET BY MOUTH DAILY simvastatin 10 mg tablet 10 mg PO QHS losartan 50 mg tablet 100 mg PO DAILY hydrochlorothiazide 25 mg tablet 25 mg PO DAILY Patient Comments: TAKE 1 TABLET DAILY fluticasone furoate-vilanterol [Breo Ellipta] 200-25 mcg/dose blister with device 2 inh inhalation DAILY Patient Comments: INHALE one puff DAILY. rinse mouth after each use albuterol sulfate 90 mcg/actuation HFA aerosol inhaler 90 gm inhalation DAILY PRN PRN (Reason: BRONCHOSPASMS) cholecalciferol (vitamin D3) 25 mcg (1,000 unit) capsule 25 mcg PO DAILY multivitamin [Daily Multi-Vitamin] Tablet 1 tab PO DAILY calcium citrate 200 mg (950 mg) tablet 200 mg PO BID potassium chloride 20 mEq Tablet,Er Particles/Crystals 20 meq PO DAILY montelukast 10 mg Tablet 10 mg PO QHS dextroamphetamine-amphetamine [Adderall] 20 mg Tablet 20 mg PO DAILY bupropion HCl 300 mg tablet extended release 24 hr 300 mg PO DAILY Referrals / Follow Up: Roemro Lowry MD [Primary Care Provider] - In 1 Week Natanael Vitale DO [Med Staff - Active Staff] - See Referral Note (in two weeks- call for appointment) Disposition Disposition (needs filled in before D/C Order can be placed): Home, Self Care Charges/Coding Visit Charges Inpatient E&M: 70375 Disch Hosp >30min
--- NOTE | 2024-08-30 12:43 | CASEMGMT ---
ALEXANDRA WOODARD into pt room to discuss DC planning. Pt would like script to go to OP therapy. ALEXANDRA WOODARD obtained script and provided to patient. She plans to call [facility] on Sunday to schedule.
[2024-09-01 14:03] LABS: Pathologist Review Reviewed
== END 2024-08-30 12:21 | disposition home or self-care (01) ==
LOC: ED 08-26 00:28 → PCU 08-26 08:46
PROVIDERS: Orthopaedic Surgery; Admitting Provider Internal Medicine; Emergency Provider Emergency Medicine; PCP Family Medicine; Visit Provider Internal Medicine
PROC: (CPT 29870; principal; 2024-08-29 17:00)
DX: M00.062 Staphylococcal arthritis, left knee (principal); M00.862 Arthritis due to other bacteria, left knee; E66.813 Obesity, class 3; Z68.43 Body mass index [BMI] 50.0-59.9, adult; R53.1 Weakness; Z79.51 Long term (current) use of inhaled steroids; R26.2 Difficulty in walking, not elsewhere classified; R53.81 Other malaise; E78.00 Pure hypercholesterolemia, unspecified; Z87.891 Personal history of nicotine dependence; M17.12 Unilateral primary osteoarthritis, left knee; I10 Essential (primary) hypertension; Z79.899 Other long term (current) drug therapy; M11.20 Other chondrocalcinosis, unspecified site; J45.909 Unspecified asthma, uncomplicated; E87.6 Hypokalemia
CPT/HCPCS: 20610; 29871; 01400; 73502; 73560; 73610; 80048; 82565; 83605; 85025; 85652; 86140; 87070; 87075; 87077; 87186; 87205; 89050; 89051; 89060; 94640; 96365; 96366; 96372; 96375; 96376; 97110; 97116; 97163; 97166; 97530; 97535; 97802; 99221; 99285; A4216; G0378; J2405

== ENCOUNTER → 2024-09-24 | Outpatient (CLI) | payer MEDICARE, SELFPAY ==
--- NOTE | 2024-09-24 14:59 | RAD_ITS ---
PROCEDURE: Left ankle radiographs, three views REASON FOR EXAM: Fall. Persistent swelling TECHNIQUE: 3 views of the left ankle COMPARISON: None available FINDINGS: Three views of the left ankle were obtained. The bones are osteopenic. Small plantar calcaneal spur. There is mild medial and lateral soft tissue swelling. No acute fracture or dislocation of the left ankle. Vague horizontal decreased density of the distal left fibula on image 2 does not convincingly connect to a cortical surface. RAD/Ankle min 3 Views IMPRESSION: Osteopenia. No displaced fracture of the left ankle. There is a vague horizon irma lucency projecting over the distal fibula on the oblique view, below the level of the ankle mortise. This does not convinci ngly connect to a cortical surface and is favored to be artifactual. Recommend correlation with point tenderness. If there is persistent pain of the left ankle, suggest either follow-up left an kle radiographs in 5-7 days versus MRI. Mild medial and lateral soft tissue swelling. Small plantar calcaneal spur. Reading Location: [facility]
== END | disposition home or self-care (01) ==
LOC: MTRAD 14:56
PROVIDERS: PCP Family Medicine; Referring Provider Family Medicine; Visit Provider Family Medicine
DX: M25.572 Pain in left ankle and joints of left foot (principal)
CPT/HCPCS: 73610

== ENCOUNTER → 2024-10-02 | Outpatient (CLI) | payer MEDICARE, SELFPAY ==
--- NOTE | 2024-10-02 11:20 | LES_PTH ---
PATIENT: SANJUANA LUCIA LOC: [facility] U#:[id number] AGE/SX: 74/F ROOM: RE10/02/[address]: Dr. Romero Lowry MD : 1950 BED: DIS: 10/02/2024 SPEC #: [id number] RECD: 10/03/24 09:15 STATUS: SHAHZAD FERNANDO #: [id number] RICKI: 10/02/24 11:[address]: Romero Lowry DEPT: SURGICAL PATHOLOGY RECD BY: Phillip Veras Tissues: Skin of forearm, NOS Procedures: Surgery Specimen Level IV HEADER OPERATION: Left forearm lesion PRE-OP DIAGNOSIS: ? Basal cell carcinoma TISSUE SUBMITTED: Left forearm lesion MICROSCOPIC DIAGNOSIS Skin, left forearm, shave biopsy: * Lichenoid actinic keratosis. MICROSCOPIC DESCRIPTION Slides are reviewed. GROSS DESCRIPTION Received in formalin labeled, Sanjuana Lucia, and designated left forearm, is a 1.4 x 0.7 x 0.2 cm shave biopsy of lemon-germain, ragged, unoriented skin. The margin is inked black. The specimen is trisected and totally submitted in one cassette.TONY. 10/03/2024 CPT:51515
== END | disposition home or self-care (01) ==
LOC: LABSPEC 16:48
PROVIDERS: PCP Family Medicine; Referring Provider Family Medicine; Visit Provider Family Medicine
DX: L57.0 Actinic keratosis (principal)
CPT/HCPCS: 88305

== ENCOUNTER → 2024-10-28 | Outpatient (CLI) | payer MEDICARE, SELFPAY ==
--- NOTE | 2024-10-28 14:45 | BI_ITS ---
EXAM: SCRN MAMM (CAD)W/NAS BILAT DATE: 10/28/2024 CLINICAL HISTORY: F, Age 74 y/o , SCREENING. No family history. BREAST CANCER RISK ASSESSMENT: Not assessed. TECHNIQUE: Bilateral screening digital breast tomosynthesis with 2D and 3D images. Computer aided detection. COMPARISON: Prior exam(s) dated October 11, 2023.. FINDINGS: TISSUE DENSITY: The breast tissue is composed of scattered area of fibroglandular density. Bilateral Breast Mammographic Findings: No significant masses, calcifications or other abnormalities are identified. Stable 6 mm well-defined nodule in the deep upper anterior area of the left breast suggestive of a small cyst or lymph node. BI/SCRN MAMM (CAD)W/NAS BILAT IMPRESSION: Right Breast: BIRADS 1 NEGATIVE. Left Breast: BIRADS 2 BENIGN FINDING. OVERALL FINAL ASSESSMENT: BIRADS 2 BENIGN FINDING RECOMMENDATION: Routine annual follow-up in 1 Year A letter with findings and recommendations will be mailed to the patient. Reading Location: [id number]
== END | disposition home or self-care (01) ==
LOC: OPBI 14:44
PROVIDERS: PCP Family Medicine; Referring Provider Family Medicine; Visit Provider Family Medicine
DX: Z12.31 Encounter for screening mammogram for malignant neoplasm of breast (principal)
CPT/HCPCS: 77063; 77067

== ENCOUNTER → 2025-02-16 | Outpatient (CLI) | payer MEDICARE, SELFPAY ==
[2025-02-16 17:51] LABS: Hematocrit 41.2 % (37-47); Hemoglobin 13.1 g/dL (12.0-15.0); Mean Corp Hgb Conc 31.8 g/dL (32-36); Mean Corpuscular Volume 90.9 fL (81-99); Mean Platelet Vol. 12.5 fl (6.2-12.0); Platelet Count 224 K/mm3 (150-450); RBC Distribution Width CV 13.7 % (11.6-14.6); RBC Distribution Width SD 45.8 fl (35.1-43.9); Red Blood Count 4.53 M/mm3 (4.2-5.4); White Blood Count 6.8 K/mm3 (4.4-11.0)
[2025-02-16 18:24] LABS: AST(SGOT) 16 U/L (<=31); Alanine Aminotransfer ALT/SGPT 12 U/L (<=34); Albumin, Serum 4.3 g/dL (3.4-4.8); Alkaline Phosphatase 95 U/L (35-104); Anion Gap 11 (5-15); BUN 9 mg/dL (4-19); BUN/Creat Ratio 9.6 RATIO (10-20); Calcium,Total 9.5 mg/dL (7.6-11.0); Carbon Dioxide 27.9 mmol/L (21.0-32.0); Chloride 102 mmol/L (98-108); Globulin 2.8 g/dL (2.2-4.2); Glucose 120 mg/dL (70-99); Potassium 3.7 mmol/L (3.3-5.1)
[2025-02-16 18:32] LABS: Vitamin D,25 Hydroxy 41.8 ng/mL (30-100)
== END | disposition home or self-care (01) ==
LOC: MFPLAB 14:10
PROVIDERS: PCP Family Medicine; Referring Provider Family Medicine; Visit Provider Family Medicine
DX: R42 Dizziness and giddiness (principal); I10 Essential (primary) hypertension
CPT/HCPCS: 36415; 80053; 82306; 84443; 85027